=== PATIENT | female | born 1950 | race Caucasian/White ===

== ENCOUNTER 2017-07-04 09:46 | Day surgery (SDC) | payer MEDICARE, MEDICAID, SELFPAY ==
[2017-07-04 10:01] VITALS: BP 115/67; PULSE 71; RESP 18; O2SAT 95
[2017-07-04 10:19] VITALS: BP 103/56; PULSE 64; RESP 18; TEMP 36.6; O2SAT 100
[2017-07-04 10:29] VITALS: BP 106/66; PULSE 73; RESP 18
[2017-07-04 10:30] LABS: POC Glucose,Bedside 131 mg/dL
[2017-07-04 10:31] VITALS: BP 105/68; PULSE 72; RESP 18
--- NOTE | 2017-07-04 10:37 | P.PCN_ITS ---
- Procedure Date: 07/04/17 Time: 10:33 Anesthesiologist:: Petr Barahona CRNA Complications:: None Pre-procedure Diagnosis:: Right sacroiliitis. Right trochanteric bursitis Post-procedure Diagnosis:: Same Indications for Procedure:: 66-year-old obese white male that we have been treating for quite some time for chronic low back pain as well as right hip pain. She presents to our procedure clinic today for right SI joint injection as well as right trochanteric bursa injection Procedure Details:: Procedure: Right sacroliliac joint injection under fluoroscopy Informed consent was obtained and the risk and benefits of the procedure were explained to the patient.~ The patient was taken to the procedure room and noninvasive monitors were placed including noninvasive blood pressure cuff and pulse oximeter.~ The patient was placed prone on the procedure table.~ The~ right hip was cleansed using Betadine as a cleansing solution.~ C-arm fluorosocpy was used to view the right SI joint.~ The skin and subcutaneous tissues were anesthetized using Lidocaine 1.5% and a 25-gauge needle.~ After this, a 22-gauge spinal needle was inserted under fluoroscopic guidance into the inferior aspect of the right SI joint.~ Omnipaque dye was injected and a good spread was seen throughout the joint.~ After this, approximately 5 mL of bupivacaine 0.25% and Depo-Medrol 40 mg was incrementally injected into the sacroiliac joint.~ The patient tolerated the procedure well with no complications.~ The patient was observed in the Pain Clinic, then discharged home neurologically intact.~ Procedure: Right trochanteric bursa injection under fluoroscopy We then moved to the right trochanteric bursa.~ C-arm fluoroscopy was used to view the left greater trochanter.~ The skin and subcutaneous tissues overlying the right greater trochanter were anesthetized using lidocaine, 1.5% and a 25- gauge needle.~ After this, a 22-gauge spinal needle was inserted and advanced until it contacted the right greater trochanter.~ Dye was injected and good spread was seen throughout the right trochanteric bursa. After this, approximately 5 mL of bupivacaine, 0.25% and Depo-Medrol, 40 mg was incrementally injected into the right right trochanteric bursa.~ The patient tolerated the procedure well with no complications. Plan and Disposition:: Patient was reevaluated 10 minutes post procedure. She reports 90% improvement in terms of her right hip pain.
== END 2017-07-04 10:40 | disposition home or self-care (01) ==
LOC: SC.PAINP 09:49
PROVIDERS: Family Provider Family Medicine; PCP Family Medicine; Visit Provider Nurse Anesthetist, Certified Registered
DX: M46.1 Sacroiliitis, not elsewhere classified (principal); M70.61 Trochanteric bursitis, right hip; E11.9 Type 2 diabetes mellitus without complications
CPT/HCPCS: 20610; 27096; 82962; G0260; J1030

== ENCOUNTER → 2017-08-21 09:37 | Outpatient (POV) | payer MEDICARE, MEDICAID, SELFPAY ==
[2017-08-21 09:44] VITALS: BP 109/57; PULSE 72; RESP 21; O2SAT 96; BMI 41.1
--- NOTE | 2017-08-21 10:22 | HMH.PAINSOAP ---
[facility] Pain Management SOAP Note Subjective:: Patient is a pleasant 66-year-old white female who presents today for follow-up after her right SI and right trochanteric bursa injection. Patient states she received 80% relief for at least 6 weeks. Patient would like to discuss her low back pain today. Patient has had successful medial branch blocks L3-L4 L4-L5. Patient received 80% relief for 6-8 weeks post these injections. Patient would like to discuss RFA of these levels. Patient states her back pain is axial in nature she rates her pain a 6 out of 10 today. Patient states all activity makes it worse while resting makes it better. Patient has tried and failed medications, physical therapy, anti-inflammatories. ROS General: no recent weight change, no fever, no sleep disturbances Respiratory: Chronic cough, COPD Cardiovascular/Peripheral Vascular: No chest pain, No palpitations, no edema, no shortness of breath. Gastrointestinal: no incontinence, normal bowel movements reported Genitourinary: no incontinence Musculoskeletal: Lumbar back pain Psychiatric: normal mood/ affect, Neurological: Intermittent weakness in bilateral lower extremities Objective:: Physical Exam General: Alert and oriented x3, no acute distress, pleasant and cooperative, [on room air] Lungs: Resps E/U, Symmetrical chest expansion, Eyes: PERRL Musculoskeletal: Flexion and extension of lumbar spine somewhat guarded secondary to pain, deep tendon reflexes normal, strength in upper and lower extremities [5/5], [abnormal gait noted] Neurological: speech clear, pbx repairer equal, no gross sensory deficits Assessment:: facet arthropathy of the lumbar spine, lumbar spondylosis, right sacroiliitis, right trochanteric bursitis Plan:: We will plan radiofrequency ablation of L3-L4 L4-L5 bilaterally. We will start with the right side. Patient did well with her medial branch blocks and I believe that this can give her some long-term pain relief as well as increase her functionality. Patient has tried and failed anti-inflammatories, medications, physical therapy. This note was dictated using voice-recognition software may contain errors or omissions
--- NOTE | 2017-08-21 10:26 | P.CONS_ITS ---
[facility] Pain Management SOAP Note Subjective:: Patient is a pleasant 66-year-old white female who presents today for follow-up after her right SI and right trochanteric bursa injection. Patient states she received 80% relief for at least 6 weeks. Patient would like to discuss her low back pain today. Patient has had successful medial branch blocks L3-L4 L4- L5. Patient received 80% relief for 6-8 weeks post these injections. Patient would like to discuss RFA of these levels. Patient states her back pain is axial in nature she rates her pain a 6 out of 10 today. Patient states all activity makes it worse while resting makes it better. Patient has tried and failed medications, physical therapy, anti-inflammatories. ROS General: no recent weight change, no fever, no sleep disturbances Respiratory: Chronic cough, COPD Cardiovascular/Peripheral Vascular: No chest pain, No palpitations, no edema, no shortness of breath. Gastrointestinal: no incontinence, normal bowel movements reported Genitourinary: no incontinence Musculoskeletal: Lumbar back pain Psychiatric: normal mood/ affect, Neurological: Intermittent weakness in bilateral lower extremities Objective:: Physical Exam General: Alert and oriented x3, no acute distress, pleasant and cooperative, [ on room air] Lungs: Resps E/U, Symmetrical chest expansion, Eyes: PERRL Musculoskeletal: Flexion and extension of lumbar spine somewhat guarded secondary to pain, deep tendon reflexes normal, strength in upper and lower extremities [5/5], [abnormal gait noted] Neurological: speech clear, manager heart equal, no gross sensory deficits Assessment:: facet arthropathy of the lumbar spine, lumbar spondylosis, right sacroiliitis, right trochanteric bursitis Plan:: We will plan radiofrequency ablation of L3-L4 L4-L5 bilaterally. We will start with the right side. Patient did well with her medial branch blocks and I believe that this can give her some long-term pain relief as well as increase her functionality. Patient has tried and failed anti-inflammatories, medications, physical therapy. This note was dictated using voice-recognition software may contain errors or omissions
== END ==
PROVIDERS: Family Provider Family Medicine; PCP Family Medicine; Visit Provider Clinical Nurse Specialist Family Health
DX: M47.816 Spondylosis without myelopathy or radiculopathy, lumbar region (principal); M70.61 Trochanteric bursitis, right hip
CPT/HCPCS: 99212

== ENCOUNTER → 2017-08-25 10:15 | Outpatient (CLI) | payer MEDICARE, MEDICAID, SELFPAY ==
[2017-08-25 11:42] LABS: Albumin Level 3.8 gm/dL (3.4-5.0); Blood Urea Nitrogen 24 mg/dL (7-18); Calcium 9.8 mg/dL (8.5-10.1); Carbon Dioxide 25 mmol/L (21.0-32.0); Chloride 99 mmol/L (98-107); Creatinine,Serum 1.53 mg/dL (0.55-1.02); Estimated Glomerular Filt Rate 34 ml/min (>60); GFR (African American) 41 ML/MIN (>60); Glucose 186 mg/dL (74-106); Phosphorous 4.3 mg/dL (2.4-4.9); Sodium 138 mmol/L (136-145)
[2017-08-26 18:31] LABS: Parathyroid Hormone Intact 47 pg/mL (15-65); Vitamin D 25 Hydroxy 35.1 ng/mL (30.0-100.0)
[2017-08-26 21:39] LABS: Calcium, Ionized 5.6 mg/dL (4.5-5.6)
== END ==
PROVIDERS: Visit Provider Internal Medicine Nephrology
DX: N18.3 Chronic kidney disease, stage 3 (moderate) (principal)
CPT/HCPCS: 36415; 80069; 82330; 82652; 83970

== ENCOUNTER → 2017-08-28 13:46 | Outpatient (POV) | payer MEDICARE, MEDICAID, SELFPAY | PROVIDERS: Family Provider Family Medicine; PCP Family Medicine; Visit Provider Internal Medicine Nephrology | DX: Z00.00 Encounter for general adult medical examination without abnormal findings (principal) ==

== ENCOUNTER 2017-09-01 11:07 | Day surgery (SDC) | payer MEDICARE, MEDICAID, SELFPAY ==
[2017-09-01 11:53] VITALS: BP 111/59; PULSE 69; RESP 18; O2SAT 95; BMI 40.6
--- NOTE | 2017-09-01 12:19 | HMH.PMPROC ---
- Procedure Date: 09/01/17 Time: 12:19 Anesthesiologist:: Brad Zapata MD Complications:: None Pre-procedure Diagnosis:: Degenerative disc disease of the lumbar spine with lumbar spondylosis and facet arthropathy Post-procedure Diagnosis:: Same Indications for Procedure:: This patient is a pleasant 66-year-old white female who we are treating for low back pain. She previously had a right SI joint injection and right trochanteric bursa injection these did help significantly. Now most of her pain is in the low back. She has benefited from medial branch blocks to L3-L4, L4-L5 and L5-S1 bilaterally. We will do radiofrequency ablation to L3-L4, L4-L5 and L5-S1 today. We will start with the right side followed by the left side in 2 weeks. Procedure Details:: Lumbar RFA informed consent was obtained and the risk and benefits of the procedure was explained to the patient. Patient was placed prone on the procedure table. The patient was prepped and draped in sterile fashion. C-arm fluoroscopy was used to view the lumbar spine. The skin and subcutaneous tissues were anesthetized using lidocaine. I placed 20-gauge RF needles into the facet joints of L3-L4, L4-L5 and L5-S1 levels on the right side. We underwent sensory stimulation. There is good sensory stimulation at 0.8 V. We underwent motor stimulation. There is no motor stimulation at 2 V. We then anesthetized these levels with lidocaine and Depo-Medrol. I used a total of 40 mg Depo-Medrol for all 3 levels. I then burned both levels L3-L4, L4-5 L5-S1 facet joint/medial branches on the right side for 60 seconds at 80?C. We underwent 4 campos again each 1 for 60 seconds at 80?C. Patient tolerated the procedure well with no complication. Plan and Disposition:: We will follow-up with this patient in 2 weeks. We will reevaluate her symptoms at that time. And plan on RFA to the facet joint/medial branches of L3-L4, L4-L5 and L5-S1 on the left side.
[2017-09-01 12:25] VITALS: BP 158/78; PULSE 78; RESP 18
[2017-09-01 12:31] VITALS: BP 141/78; PULSE 81; RESP 20
--- NOTE | 2017-09-01 12:32 | P.PCN_ITS ---
- Procedure Date: 09/01/17 Time: 12:19 Anesthesiologist:: Brad Zapata MD Complications:: None Pre-procedure Diagnosis:: Degenerative disc disease of the lumbar spine with lumbar spondylosis and facet arthropathy Post-procedure Diagnosis:: Same Indications for Procedure:: This patient is a pleasant 66-year-old white female who we are treating for low back pain. She previously had a right SI joint injection and right trochanteric bursa injection these did help significantly. Now most of her pain is in the low back. She has benefited from medial branch blocks to L3-L4, L4-L5 and L5-S1 bilaterally. We will do radiofrequency ablation to L3-L4, L4- L5 and L5-S1 today. We will start with the right side followed by the left side in 2 weeks. Procedure Details:: Lumbar RFA informed consent was obtained and the risk and benefits of the procedure was explained to the patient. Patient was placed prone on the procedure table. The patient was prepped and draped in sterile fashion. C-arm fluoroscopy was used to view the lumbar spine. The skin and subcutaneous tissues were anesthetized using lidocaine. I placed 20-gauge RF needles into the facet joints of L3-L4, L4-L5 and L5-S1 levels on the right side. We underwent sensory stimulation. There is good sensory stimulation at 0.8 V. We underwent motor stimulation. There is no motor stimulation at 2 V. We then anesthetized these levels with lidocaine and Depo-Medrol. I used a total of 40 mg Depo- Medrol for all 3 levels. I then burned both levels L3-L4, L4-5 L5-S1 facet joint/medial branches on the right side for 60 seconds at 80?C. We underwent 4 campos again each 1 for 60 seconds at 80?C. Patient tolerated the procedure well with no complication. Plan and Disposition:: We will follow-up with this patient in 2 weeks. We will reevaluate her symptoms at that time. And plan on RFA to the facet joint/medial branches of L3 -L4, L4-L5 and L5-S1 on the left side.
[2017-09-01 12:42] VITALS: BP 114/65; PULSE 68; RESP 18; TEMP 36.4; O2SAT 99
[2017-09-01 14:28] LABS: POC Glucose,Bedside 166 mg/dL (70-110)
== END 2017-09-01 12:42 | disposition home or self-care (01) ==
LOC: SC.PAINP 11:09
PROVIDERS: Family Provider Family Medicine; PCP Family Medicine; Visit Provider Anesthesiology
DX: M51.36 Other intervertebral disc degeneration, lumbar region (principal); M47.896 Other spondylosis, lumbar region; M54.06 Panniculitis affecting regions of neck and back, lumbar region; Z79.899 Other long term (current) drug therapy
CPT/HCPCS: 64635; 64636; 82962; J1030

== ENCOUNTER 2017-09-15 14:34 | Day surgery (SDC) | payer MEDICARE, MEDICAID, SELFPAY ==
[2017-09-15 14:58] VITALS: BP 105/69; PULSE 78; RESP 18; TEMP 36.6; O2SAT 94; BMI 40.6
[2017-09-15 15:35] VITALS: BP 125/73; PULSE 77; RESP 18
--- NOTE | 2017-09-15 15:41 | HMH.PMPROC ---
- Procedure Date: 09/15/17 Time: 15:50 Anesthesiologist:: Brad Zapata MD Complications:: None Pre-procedure Diagnosis:: Degenerative disc disease of the lumbar spine with lumbar spondylosis and facet arthropathy Post-procedure Diagnosis:: Same Indications for Procedure:: Patient is a pleasant 66-year-old white female who we are treating for low back pain secondary to degenerative disc disease of the lumbar spine with lumbar spondylosis and facet arthropathy. She is previously had a radiofrequency ablation of L3-L4 L4-L5 L5-S1 on the right side and she presents today for her left RFA of L3-L4 L4-L5 L5-S1. Procedure Details:: Informed consent was obtained and the risks and benefits of the procedure were explained to the patient. Patient was placed prone on the procedure table. The patient was prepped and draped in sterile fashion. C-arm fluoroscopy was used to view the lumbar spine. The skin was then subcutaneous tissue was anesthetized using lidocaine. I placed a 20-gauge RF needle in the facet of L3-L4 L4-L5 and L5-S1 on the left side. The patient then underwent sensory stimulation. There is good sensory stimulation at 0.8 V. We underwent motor stimulation. There is no motor stimulation at 2 V. We then anesthetized the levels with lidocaine and Depo-Medrol. I used total of 40 mg of Depo-Medrol for all 3 levels. I then burned all levels L3-L4 L4-L5 L5-S1 facet joint/medial branches on the left side for 60 seconds at 80?C we underwent 4 campos again each 1 for 60 seconds at 80?C patient tolerated the procedure well with no complications Plan and Disposition:: We will see the patient back in our clinic and says her symptoms at that time. Patient has been instructed to call us if there are any issues.
--- NOTE | 2017-09-15 15:44 | P.PCN_ITS ---
- Procedure Date: 09/15/17 Time: 15:50 Anesthesiologist:: Brad Zapata MD Complications:: None Pre-procedure Diagnosis:: Degenerative disc disease of the lumbar spine with lumbar spondylosis and facet arthropathy Post-procedure Diagnosis:: Same Indications for Procedure:: Patient is a pleasant 66-year-old white female who we are treating for low back pain secondary to degenerative disc disease of the lumbar spine with lumbar spondylosis and facet arthropathy. She is previously had a radiofrequency ablation of L3-L4 L4-L5 L5-S1 on the right side and she presents today for her left RFA of L3-L4 L4-L5 L5-S1. Procedure Details:: Informed consent was obtained and the risks and benefits of the procedure were explained to the patient. Patient was placed prone on the procedure table. The patient was prepped and draped in sterile fashion. C-arm fluoroscopy was used to view the lumbar spine. The skin was then subcutaneous tissue was anesthetized using lidocaine. I placed a 20-gauge RF needle in the facet of L3- L4 L4-L5 and L5-S1 on the left side. The patient then underwent sensory stimulation. There is good sensory stimulation at 0.8 V. We underwent motor stimulation. There is no motor stimulation at 2 V. We then anesthetized the levels with lidocaine and Depo-Medrol. I used total of 40 mg of Depo-Medrol for all 3 levels. I then burned all levels L3-L4 L4-L5 L5-S1 facet joint/ medial branches on the left side for 60 seconds at 80?C we underwent 4 campos again each 1 for 60 seconds at 80?C patient tolerated the procedure well with no complications Plan and Disposition:: We will see the patient back in our clinic and says her symptoms at that time. Patient has been instructed to call us if there are any issues.
[2017-09-15 15:49] VITALS: BP 119/74; PULSE 76; RESP 20
[2017-09-15 15:56] VITALS: BP 94/58; PULSE 71; RESP 16; O2SAT 95
[2017-09-19 10:03] LABS: POC Glucose,Bedside 221 mg/dL (70-110)
== END 2017-09-15 16:00 | disposition home or self-care (01) ==
LOC: SC.PAINP 14:35
PROVIDERS: Family Provider Family Medicine; PCP Family Medicine; Visit Provider Anesthesiology
DX: M51.36 Other intervertebral disc degeneration, lumbar region (principal); M47.896 Other spondylosis, lumbar region; M12.88 Other specific arthropathies, not elsewhere classified, other specified site
CPT/HCPCS: 64635; 64636; 82962; J1030

== ENCOUNTER → 2017-10-02 11:00 | Outpatient (POV) | payer MEDICARE, MEDICAID, SELFPAY ==
[2017-10-02 11:24] VITALS: BP 118/64; PULSE 76; RESP 18; TEMP 36.4; O2SAT 95; BMI 41.0
--- NOTE | 2017-10-02 11:56 | HMH.PAINSOAP ---
[facility] Pain Management SOAP Note Subjective:: Patient is a pleasant 5-year-old white female who we are treating for low back pain secondary to degenerative disc disease of the lumbar spine and lumbar spondylosis. Patient currently status post bilateral radiofrequency ablation of L3-L4 L4-L5 L5-S1. Patient is doing well stating that she has 0 pain over area. Patient does have a history of right sacroiliitis and states that her right SI and right piriformis is causing her quite a bit of discomfort. Patient rates her pain there to be at 8 out of 10. Patient is interested in injective therapy in order to help relieve some of his pain. ROS General: no recent weight change, no fever, no sleep disturbances Respiratory: no cough, no shortness of air, no recurring pulmonary infections Cardiovascular/Peripheral Vascular: No chest pain, No palpitations, no edema, no shortness of breath. Gastrointestinal: no incontinence, normal bowel movements reported Genitourinary: no incontinence Musculoskeletal: Back pain, right SI joint pain, right piriformis pain Psychiatric: normal mood/ affect, Neurological: [denies weakness in extremities], [denies balance issues] Objective:: Physical Exam General: Alert and oriented x3, no acute distress, pleasant and cooperative, [on room air] Lungs: Resps E/U, Symmetrical chest expansion, Eyes: PERRL Musculoskeletal: Flexion and extension of lumbar spine somewhat guarded secondary to pain, deep tendon reflexes normal, strength in upper and lower extremities [5/5], [abnormal gait noted], extreme point tenderness over right SI joint and right piriformis. Positive Frank's test on the right side Neurological: speech clear, all round logger equal, no gross sensory deficits Assessment:: Degenerative disc disease of the lumbar spine, lumbar spondylosis, sacroiliitis, piriformis syndrome Plan:: Patient is being medically managed by her PCP with OxyContin 40 mg 1 3 times daily and oxycodone 5 mg 1 p.o. twice daily and gabapentin 600 mg 1 p.o. 4 times daily and diazepam 10 mg 1 p.o. 3 times daily. Patient is doing much better after her recent RFA. We will however order her right SI joint injection and a right piriformis injection due to her new symptomology. She is not on any coagulation therapy patient has tried physical therapy, anti-inflammatories, medications in the past without relief. This note was dictated using voice recognition software and may contain errors or omissions
--- NOTE | 2017-10-02 11:59 | P.CONS_ITS ---
[facility] Pain Management SOAP Note Subjective:: Patient is a pleasant 5-year-old white female who we are treating for low back pain secondary to degenerative disc disease of the lumbar spine and lumbar spondylosis. Patient currently status post bilateral radiofrequency ablation of L3-L4 L4-L5 L5-S1. Patient is doing well stating that she has 0 pain over area. Patient does have a history of right sacroiliitis and states that her right SI and right piriformis is causing her quite a bit of discomfort. Patient rates her pain there to be at 8 out of 10. Patient is interested in injective therapy in order to help relieve some of his pain. ROS General: no recent weight change, no fever, no sleep disturbances Respiratory: no cough, no shortness of air, no recurring pulmonary infections Cardiovascular/Peripheral Vascular: No chest pain, No palpitations, no edema, no shortness of breath. Gastrointestinal: no incontinence, normal bowel movements reported Genitourinary: no incontinence Musculoskeletal: Back pain, right SI joint pain, right piriformis pain Psychiatric: normal mood/ affect, Neurological: [denies weakness in extremities], [denies balance issues] Objective:: Physical Exam General: Alert and oriented x3, no acute distress, pleasant and cooperative, [ on room air] Lungs: Resps E/U, Symmetrical chest expansion, Eyes: PERRL Musculoskeletal: Flexion and extension of lumbar spine somewhat guarded secondary to pain, deep tendon reflexes normal, strength in upper and lower extremities [5/5], [abnormal gait noted], extreme point tenderness over right SI joint and right piriformis. Positive Frank's test on the right side Neurological: speech clear, student worker equal, no gross sensory deficits Assessment:: Degenerative disc disease of the lumbar spine, lumbar spondylosis, sacroiliitis , piriformis syndrome Plan:: Patient is being medically managed by her PCP with OxyContin 40 mg 1 3 times daily and oxycodone 5 mg 1 p.o. twice daily and gabapentin 600 mg 1 p.o. 4 times daily and diazepam 10 mg 1 p.o. 3 times daily. Patient is doing much better after her recent RFA. We will however order her right SI joint injection and a right piriformis injection due to her new symptomology. She is not on any coagulation therapy patient has tried physical therapy, anti- inflammatories, medications in the past without relief. This note was dictated using voice recognition software and may contain errors or omissions
== END ==
PROVIDERS: Family Provider Family Medicine; PCP Family Medicine; Visit Provider Clinical Nurse Specialist Family Health
DX: M47.816 Spondylosis without myelopathy or radiculopathy, lumbar region (principal)
CPT/HCPCS: 99212

== ENCOUNTER → 2017-10-11 07:45 | Outpatient (CLI) | payer MEDICARE, MEDICAID, SELFPAY ==
--- NOTE | 2017-10-11 07:47 | CT_ITS ---
CT lung screening EXAM: CT LUNG LOW DOSE WO CONTRAST COMPARISON: None HISTORY: 66-year-old female with 60 pack-year smoking history, asymptomatic ITS.REASON: CURRENT TOBACCO USE ORDERING PHYSICIAN: Konstantin Walters MD PATIENT AGE: 66 years TECHNIQUE: The exam was performed on a GE Light Speed [address] scanner using 2.90 mGy CTDI. A low dose helical CT CHEST was performed on a multi-detector scanner. All CT scans at the facility use one or more dose reduction, viz: automated exposure control; ma/kV adjustment per patient size (including targeted exams where dose is matched to indication; i.e. head); or iterative reconstruction technique. The LDCT was performed in a facility that meets the criteria for the screening program. Data regarding this exam was submitted to ACR which is an approved registry. The order for this exam indicates that it came as a result of a lung cancer screening counseling shard decision-making visit that included all the elements required of such a visit including smoking cessation. The radiologist interpreting this exam meets the CMS criteria for the LDCT lung cancer screening program. The exam is reported using the Lung-RADS classification scale and reported to the ACR registry. NOTE: This study was performed for the specific purposes of lung cancer screening and is not an alternative to diagnostic chest CT. RADIATION DOSE: CTDI vol(CT dose Index-volume) = 2.90mG DLP (Dose Length Product) = 105.91 mGcm FINDINGS: Centrilobular emphysema. 9 x 8 mm irregular parenchymal opacity is present in the right upper lobe inferiorly. Calcified granuloma left lower lobe. Scarring in the lingula. Moderate coronary artery calcification present. IMPRESSION: 1. Lung RADS Category: 4, suspicious 2. Other findings: Centrilobular emphysema, old granulomatous disease. Coronary artery atherosclerotic calcification RECOMMENDATIONS: [address] chest without and with contrast
== END ==
PROVIDERS: Family Provider Family Medicine; PCP Family Medicine; Visit Provider Family Medicine
DX: Z87.891 Personal history of nicotine dependence (principal); Z12.2 Encounter for screening for malignant neoplasm of respiratory organs

== ENCOUNTER → 2017-11-03 07:33 | Outpatient (CLI) | payer MEDICARE, MEDICAID, SELFPAY ==
--- NOTE | 2017-11-03 07:36 | MR_ITS ---
MR head/brain wo con HISTORY: Tremors for 2 years ITS.REASON: tremor ORDERING PHYSICIAN: Kristina Paris MD PATIENT AGE: 66 years TECHNIQUE: Standard multiplanar multiecho sequences are performed without contrast. FINDINGS: No midline shift, mass effect, intracranial hemorrhage, hydrocephalus, or acute infarction. The cerebellopontine angles, cerebellum, and brainstem are unremarkable. There are few scattered periventricular and subcortical T2 white matter hyperintensities nonspecific. The pituitary, optic chiasm, and craniocervical junction and corpus callosum have an unremarkable appearance. No evidence of acute or chronic lacunar infarctions. The basal ganglia and midbrain have an unremarkable appearance. There is a 13 x 7 mm area of abnormal signal intensity within the right posterior ethmoid/anterior sphenoid region hyperintense on T1 with slight decreased T2 signal centrally. Etiology of this is uncertain. CT may better characterize for possible bony lesion. No mastoid effusion or sinus air-fluid level. IMPRESSION: 1. No acute intracranial finding. 2. Unusual area of signal intensity in the right posterior ethmoid/anterior sphenoid region as described above. This is just medial to the posterior aspect of the right optic nerve and medial rectus muscle of the right. Consider CT of the orbits/sinuses for further evaluation due to the atypical signal characteristics and to evaluate for possible bony lesion.
== END ==
PROVIDERS: Family Provider Family Medicine; PCP Family Medicine; Visit Provider Specialist
DX: G20 Parkinson's disease (principal); R25.1 Tremor, unspecified
CPT/HCPCS: 70551

== ENCOUNTER → 2017-11-13 13:53 | Outpatient (POV) | payer MEDICARE, MEDICAID, SELFPAY ==
[2017-11-13 14:10] VITALS: BP 135/72; PULSE 83; RESP 18; O2SAT 99; BMI 45.5
--- NOTE | 2017-11-13 14:46 | HMH.PAINSOAP ---
[facility] Pain Management SOAP Note Subjective:: She is a pleasant 66 white female who presents today for follow-up. Patient is status post a right SI and right performance injection. She states that her hip is doing much better however she is having a return in her lower lumbar pain. Patient has had an RFA of her lumbar spine at L3-L4 L4-L5 L5-S1 bilaterally. She states that this did help significantly. However it has returned. Patient would like a repeat medial branch block of L3-L4 L4-L5 L5-S1 bilaterally. I believe that this would be beneficial given her symptomology. We discussed potential longer-term options such as neuromodulation where she is not interested at that at this time as long as her pain symptoms are being managed with injective therapy. Patient's currently on oxycodone 5 mg 1 p.o. twice daily and OxyContin 40 mg 1 p.o. twice daily along with gabapentin 600 mg 1 p.o. 4 times daily and diazepam 10 mg 1 p.o. 3 times daily from her primary care physician. ROS General: no recent weight change, no fever, no sleep disturbances Respiratory: no cough, no shortness of air, no recurring pulmonary infections Cardiovascular/Peripheral Vascular: No chest pain, No palpitations, no edema, no shortness of breath. Gastrointestinal: no incontinence, normal bowel movements reported Genitourinary: no incontinence Musculoskeletal: Back pain Psychiatric: normal mood/ affect Neurological: [denies weakness in extremities], [denies balance issues] Objective:: Physical Exam General: Alert and oriented x3, no acute distress, pleasant and cooperative, [on room air] Lungs: Resps E/U, Symmetrical chest expansion, Eyes: PERRL Musculoskeletal: Flexion and extension of lumbar spine somewhat guarded secondary to pain, deep tendon reflexes normal, strength in upper and lower extremities [5/5], abnormal gait noted, positive facet loading lumbar spine bilaterally Neurological: speech clear, agricultural engineering technologist equal, no gross sensory deficits Assessment:: lumbar spondylosis, facet arthropathy, sacroiliitis Plan:: We will schedule bilateral medial branch blocks at L3-L4 L4-L5 L5-S1 bilaterally. Patient is uninterested in neuromodulation at this time however we may have to discuss this in the future. Patient would like to discuss her cervical pain after her injections. I will follow-up with her after her injections. Patient's tried and failed medications, anti-inflammatories, physical therapy. Patient is continuing to try to do home stretching. This note was dictated using voice recognition software and may contain errors or omissions
--- NOTE | 2017-11-13 14:49 | P.CONS_ITS ---
[facility] Pain Management SOAP Note Subjective:: She is a pleasant 66 white female who presents today for follow-up. Patient is status post a right SI and right performance injection. She states that her hip is doing much better however she is having a return in her lower lumbar pain. Patient has had an RFA of her lumbar spine at L3-L4 L4-L5 L5-S1 bilaterally. She states that this did help significantly. However it has returned. Patient would like a repeat medial branch block of L3-L4 L4-L5 L5-S1 bilaterally. I believe that this would be beneficial given her symptomology. We discussed potential longer-term options such as neuromodulation where she is not interested at that at this time as long as her pain symptoms are being managed with injective therapy. Patient's currently on oxycodone 5 mg 1 p.o. twice daily and OxyContin 40 mg 1 p.o. twice daily along with gabapentin 600 mg 1 p.o. 4 times daily and diazepam 10 mg 1 p.o. 3 times daily from her primary care physician. ROS General: no recent weight change, no fever, no sleep disturbances Respiratory: no cough, no shortness of air, no recurring pulmonary infections Cardiovascular/Peripheral Vascular: No chest pain, No palpitations, no edema, no shortness of breath. Gastrointestinal: no incontinence, normal bowel movements reported Genitourinary: no incontinence Musculoskeletal: Back pain Psychiatric: normal mood/ affect Neurological: [denies weakness in extremities], [denies balance issues] Objective:: Physical Exam General: Alert and oriented x3, no acute distress, pleasant and cooperative, [ on room air] Lungs: Resps E/U, Symmetrical chest expansion, Eyes: PERRL Musculoskeletal: Flexion and extension of lumbar spine somewhat guarded secondary to pain, deep tendon reflexes normal, strength in upper and lower extremities [5/5], abnormal gait noted, positive facet loading lumbar spine bilaterally Neurological: speech clear, 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 Patient is uninterested in neuromodulation at this time however we may have to discuss this in the future. Patient would like to discuss her cervical pain after her injections. I will follow-up with her after her injections. Patient's tried and failed medications, anti-inflammatories, physical therapy. Patient is continuing to try to do home stretching. This note was dictated using voice recognition software and may contain errors or omissions
== END ==
PROVIDERS: Family Provider Family Medicine; PCP Family Medicine; Visit Provider Clinical Nurse Specialist Family Health
DX: M47.816 Spondylosis without myelopathy or radiculopathy, lumbar region (principal)
CPT/HCPCS: 99212

== ENCOUNTER → 2017-12-11 09:49 | Outpatient (POV) | payer MEDICARE, MEDICAID, SELFPAY ==
[2017-12-11 10:04] VITALS: BP 111/44; PULSE 78; RESP 18; O2SAT 98; BMI 45.5
--- NOTE | 2017-12-11 12:21 | HMH.PAINSOAP ---
[facility] Pain Management SOAP Note Subjective:: Patient is a pleasant 67-year-old white female who we are treating for low back pain secondary to lumbar spondylosis and facet arthropathy. Patient states that her most recent round of medial branch blocks helped significantly. Patient states she does have neck and back pain at all times. Patient does not have any recent imaging of her cervical spine however she is having worsening pain. Patient rates her pain a 7 out of 10 today. Patient does not want to do physical therapy at this time due to cost. Patient and I discussed nutrition along with weight loss. Patient states she has lost some weight. Patient is currently on OxyContin and oxycodone from her primary care physician. Patient states that this medication does not help her pain much. ROS General: no recent weight change, no fever, no sleep disturbances Respiratory: no cough, no shortness of air, no recurring pulmonary infections Cardiovascular/Peripheral Vascular: No chest pain, No palpitations, no edema, no shortness of breath. Gastrointestinal: no incontinence, normal bowel movements reported Genitourinary: no incontinence Musculoskeletal: Neck pain, back pain Psychiatric: normal mood/ affect Neurological: [denies weakness in extremities], [denies balance issues] Objective:: Physical Exam General: Alert and oriented x3, no acute distress, pleasant and cooperative, [on room air] Lungs: Resps E/U, Symmetrical chest expansion, Eyes: PERRL Musculoskeletal: Flexion and extension of lumbar and cervical spine somewhat guarded secondary to pain, deep tendon reflexes normal, strength in upper and lower extremities [5/5], [abnormal gait noted] Neurological: speech clear, chief of party equal, no gross sensory deficits Assessment:: Disease of the cervical and lumbar spine with radiculopathy, facet arthropathy, lumbar spondylosis Plan:: We will schedule cervical MRI for the patient to determine pathology. Patient and I had a discussion about neuro stimulation in the past. I believe we may need to return to this. I believe patient may benefit from potential intrathecal therapy. Patient would have to be weaned off her current medications. I will follow-up with this patient after her cervical MRI and we will determine a plan of care. This note was dictated using voice recognition software and may contain errors or omissions
--- NOTE | 2017-12-11 12:24 | P.CONS_ITS ---
[facility] Pain Management SOAP Note Subjective:: Patient is a pleasant 67-year-old white female who we are treating for low back pain secondary to lumbar spondylosis and facet arthropathy. Patient states that her most recent round of medial branch blocks helped significantly. Patient states she does have neck and back pain at all times. Patient does not have any recent imaging of her cervical spine however she is having worsening pain. Patient rates her pain a 7 out of 10 today. Patient does not want to do physical therapy at this time due to cost. Patient and I discussed nutrition along with weight loss. Patient states she has lost some weight. Patient is currently on OxyContin and oxycodone from her primary care physician. Patient states that this medication does not help her pain much. ROS General: no recent weight change, no fever, no sleep disturbances Respiratory: no cough, no shortness of air, no recurring pulmonary infections Cardiovascular/Peripheral Vascular: No chest pain, No palpitations, no edema, no shortness of breath. Gastrointestinal: no incontinence, normal bowel movements reported Genitourinary: no incontinence Musculoskeletal: Neck pain, back pain Psychiatric: normal mood/ affect Neurological: [denies weakness in extremities], [denies balance issues] Objective:: Physical Exam General: Alert and oriented x3, no acute distress, pleasant and cooperative, [ on room air] Lungs: Resps E/U, Symmetrical chest expansion, Eyes: PERRL Musculoskeletal: Flexion and extension of lumbar and cervical spine somewhat guarded secondary to pain, deep tendon reflexes normal, strength in upper and lower extremities [5/5], [abnormal gait noted] Neurological: speech clear, pinion staker equal, no gross sensory deficits Assessment:: Disease of the cervical and lumbar spine with radiculopathy, facet arthropathy, lumbar spondylosis Plan:: We will schedule cervical MRI for the patient to determine pathology. Patient and I had a discussion about neuro stimulation in the past. I believe we may need to return to this. I believe patient may benefit from potential intrathecal therapy. Patient would have to be weaned off her current medications. I will follow-up with this patient after her cervical MRI and we will determine a plan of care. This note was dictated using voice recognition software and may contain errors or omissions
== END ==
PROVIDERS: Family Provider Family Medicine; PCP Family Medicine; Visit Provider Clinical Nurse Specialist Family Health
DX: M54.16 Radiculopathy, lumbar region (principal); M54.12 Radiculopathy, cervical region
CPT/HCPCS: 99212

== ENCOUNTER → 2018-01-03 08:30 | Outpatient (CLI) | payer MEDICARE, MEDICAID, SELFPAY ==
[2018-01-03 08:50] LABS: Blood Urea Nitrogen 18 mg/dL (7-18); Creatinine,Serum 1.31 mg/dL (0.55-1.02); Estimated Glomerular Filt Rate 40 ml/min (>60); GFR (African American) 49 ML/MIN (>60)
--- NOTE | 2018-01-03 09:40 | CT_ITS ---
CT chest wo/w con HISTORY: Tobacco abuse, abnormal screening lung scan, smoker ITS.REASON: F/U TO LOW DOSE LUNG SCREENING ORDERING PHYSICIAN: Konstantin Walters MD PATIENT AGE: 67 years COMPARISON: None Technique: Axial images obtained without and with contrast. Sagittal and coronal reformatted images are also generated and reviewed. All CT scans at the facility use one or more dose reduction, viz: automated exposure control; ma/kV adjustment per patient size (including targeted exams where dose is matched to indication; i.e. head); or iterative reconstruction technique. FINDINGS: No mediastinal or hilar mass or adenopathy. There are few small mediastinal lymph nodes which are stable. No evidence of aortic aneurysm, dissection, or central pulmonary embolus. The left atrial appendage is slightly prominent. There is extensive coronary artery calcification. Normal heart size. No evidence of pericardial effusion. Previously described parenchymal opacity in the inferior aspect of the right upper lobe is again noted measuring approximately 8 x 8 mm. This did appear slightly more prominent on the previous exam possibly related to some adjacent atelectasis or infiltrate. There is now more well-defined and may represent a small area of parenchymal fibrosis/scarring. Six-month follow-up suggested which can be performed without contrast. There is some mild atelectasis/patchy infiltrate in the right lung base posteriorly. Mild fibrotic changes are present in the left lower lobe. There is centrilobular emphysematous change. A 3 mm nodular density is present in the right minor fissure. Calcified granulomas are present in the left lower lobe. No effusions. Upper abdominal images demonstrates cholelithiasis. The liver has a somewhat nodular contour and there is mild prominence of the left hepatic lobe. These findings may be seen with cirrhosis/portal hypertension. There is some cortical scarring of the left kidney with left renal cysts. Multiple punctate calcifications are present within the pancreas consistent with chronic pancreatitis There are degenerative changes of the thoracic spine. IMPRESSION: 1. Right upper lobe nodule appears somewhat less apparent and may been due to small area of atelectasis or infiltrate around an area of fibrosis. Continued 6 month follow-up suggested 2. Centrilobular emphysema. 3. Nodular contour of the liver with mild prominence of the left hepatic lobe which may be seen with cirrhosis/portal hypertension with evidence of chronic pancreatitis. 4. Cholelithiasis
== END ==
PROVIDERS: Visit Provider Family Medicine
DX: R91.8 Other nonspecific abnormal finding of lung field (principal)
CPT/HCPCS: 36415; 71270; 82565; 84520; Q9967

== ENCOUNTER → 2018-01-08 10:01 | Outpatient (CLI) | payer MEDICARE, MEDICAID, SELFPAY ==
--- NOTE | 2018-01-08 10:04 | MR_ITS ---
MR cervical spine wo con Ordering Physician: Brad Zapata MD Patient Age: 67 years: Female HISTORY: ITS.REASON: NECK PAIN Unable to turn neck. Neck pops with xPain Neck pain 1 extends neck have numbness right arm. Patient has tremor. TECHNIQUE: Multiplanar Sagittal STIR, T1, T2, axial T1 and T2. On 1.5T Siemens wide bore MRI. 3-D MR myelogram image set obtained & performed on MRI workstation. Additional sagittal thin section T2 weighted dataset obtained from this latter acquisition as well (---76 CPT) COMPARISON : FINDINGS The patient's tremor there is yield some motion artifact on images. The cervical vertebral bodies reveal no compression fracture. The cranial cervical junction is normal Generous Cervical spondylosis, with multilevel degenerative disc changes C2/3 disc and cord normal. C3/4 degenerative disc space narrowing. Diffuse posterior endplate hypertrophic and osteophytic ridging. This yields diffuse hard disc, most evident pronounced towards the right paracentral region. This this flattens the anterior aspect the cervical cord and initially indents the thecal sac to the right paracentral region. Moderate right foraminal encroachment more so than left. Patent central canal stenosis at this level with central canal measuring less than 8 mm AP. Reactive signal changes at endplates and adjacent vertebral most pronounced at C3 followed by superior C4 C4/5 degenerative disc space narrowing at generous diffuse posterior ridging,. Spurring Most evident towards the left paracentral region Diffuse flattening the cervical cord most evident to the left. With pronounced spinal stenosis at this level osseous canal likely narrows <6 mm just to left of midline a moderate bilateral foraminal encroachment most evident the left C5-C6. Marked degenerative disc space narrowing. Again we see posterior endplate ridging and spondylosis which diffusely flattens the cervical cord and yields a fairly pronounced central canal stenosis along with bilateral foraminal encroachment right greater than left C6/7. Disc space narrowing. Hypertrophic ridging slightly less pronounced at this level. Again there is diffuse flattening of the thecal sac and cervical cord with mild central canal stenosis. There may be a additional soft disc protrusion essentially flank by the hypertrophic ridging and spurring. C7/T1, T1/T2, T2/T3 T3/T4 disc intact. There are also degenerative, hypertrophic facet changes throughout the C-spine noted but it is primarily spondylosis and posterior endplate osteophytes that yielding spinal stenosis 3-D MRI myelogram image set was included on is also limited by the patient's motion but we do see multilevel spinal stenosis most pronounced C4-C5 and C5-C6; and to lesser degree C6-7 and C3/4 IMPRESSION 1. Prominent cervical spondylosis with multilevel degenerative disc changes. Pronounced, prominent Canal spinal stenosis results at C4/5 C5-C6 Generous but Slightly less pronounced central canal stenosis C6/7, & C3/4. . The cervical spondylosis, and prominent posterior osteophytic ridging at each of these levels is the primary feature which yields yields the spinal stenosis; as well as yields bilateral foraminal encroachment at each of these levels as in text. For example the hard disc features most evident to the right at C5-C6,; slightly more evident the left at C4/5 ; and most evident midline & right C3/4.. Additional central disc protrusion C6/7 in addition to the spurring ,
--- NOTE | 2018-01-08 10:04 | MR_ITS ---
MR orbits face neck wo/w con Ordering Physician: Brad Zapata MD Patient Age: 67 years: Female HISTORY: ITS.REASON: evaluate for bony lesionabnormal signal focus at ethmoid-sphenoid junction Abnormal MRI 11/03/2017. TECHNIQUE: Pre and postcontrast imaging orbits Precontrast Multiplanar FLAIR, T1, T2 weighted images along w/ axial diffusion/ADC imaging performed on 1.5 T.Siemens, MRI. Postcontrast imaging [id number] ProHance T1-weighted images axial & coronal plane performed COMPARISON :MRI brain 11/03/2017. No previous CT study evident at L the FINDINGS There is an area of focal increased signal. This measures 15 mm AP X 8 mm transverse., X 15 mm height. It is located at the junction of right ethmoid air cell and right sphenoid sinus. I suspect this is most likely an area of inspissated mucoid material in a posterior right ethmoid air cell. CT may be of benefit in follow-up to further confirm such as well. This shows no significant enhancement post contrast. An signal appears to decrease on fat suppression sequences somewhat . Although medial to the apex of the orbit and does not appear to impact optic nerve from what I can see on these images. Analyzing signal patterns this is bright on T1 on previous studies implies mucoid, lipid Or fatty material. Decreases somewhat on fat suppression images implying primarily fatty feature as well. Lack of significant enhancement speaks against a significant lesion also. It can be followed. The remainder ethmoid air cells with some borderline mucosal thickening. The orbits and cells appear normal. The sella and parasellar region normal. Survey images [place] of [place] appears satisfactory. Sella is normal size. IMPRESSION...... The area of increased signal I believe is benign feature related to likely inspissated mucoid material opacifying &, filling a very posterior ethmoid air cell, at junction with right sphenoid sinus It demonstrates primarily fat signal with lack of enhancement. No erosion or impact upon other structures Recommend Follow-up CT sinuses and 3 - 4 months suggested to confirm stability as well and confirm the orbital apex osseous margins remain intact as they would appear to be here
--- NOTE | 2018-01-08 12:45 | HMH.ITSHM ---
GABAPENTIN METFORMIN ADVAIR RESTASIS D3 LOSARTAN POTASSIUM CETIRIZINE HCL FENFOFIBRATE MICRONIZED LEVOTHYROXINE SODIUM GLIMEPIRIDE FUROSEMIDE CYMBALTA PRAVASTATIN AMLODIPINE PROPRANOLOL PREDNISODE OXYCODONE DIAZEPAM BASAQLAR DESONIDE QUIKPEM DESONIDE CREAM TRIANICINOLONE ACTONIDE NEXIUM PRIMIDONE
== END ==
PROVIDERS: Family Provider Family Medicine; PCP Family Medicine; Visit Provider Anesthesiology
DX: M54.2 Cervicalgia (principal)
CPT/HCPCS: 70543; 72141; 76376; A9576

== ENCOUNTER → 2018-01-15 09:49 | Outpatient (POV) | payer MEDICARE, MEDICAID, SELFPAY ==
--- NOTE | 2018-01-15 10:25 | HMH.PAINSOAP ---
[facility] Pain Management SOAP Note Subjective:: Patient is a pleasant 67-year-old white female who presents today for follow-up with cervical MRI. Patient has prominent cervical spondylosis and degenerative changes. Patient rates her pain an 8 out of 10 today. Patient and I did discuss neuro stimulation. Patient is uninterested in this. Patient and I have discussed nutrition along with weight loss. Patient does not want to do physical therapy at this time due to cost. Patient is interested in injective therapy for her neck. She states that most of her pain comes when she is turning her neck. Patient denies any radicular symptoms at this time. ROS General: no recent weight change, no fever, no sleep disturbances Respiratory: no cough, no shortness of air, no recurring pulmonary infections Cardiovascular/Peripheral Vascular: No chest pain, No palpitations, no edema, no shortness of breath. Gastrointestinal: no incontinence, normal bowel movements reported Genitourinary: no incontinence Musculoskeletal: Neck pain Psychiatric: normal mood/ affect Neurological: [denies weakness in extremities], [denies balance issues] Objective:: Physical Exam General: Alert and oriented x3, no acute distress, pleasant and cooperative, [on room air] Lungs: Resps E/U, Symmetrical chest expansion, Eyes: PERRL Musculoskeletal: Flexion and extension of cervical spine somewhat guarded secondary to pain, deep tendon reflexes normal, strength in upper and lower extremities [5/5], [abnormal gait noted] Positive facet loading cervical spine Neurological: speech clear, front office help equal, no gross sensory deficits Assessment:: Cervical spondylosis, degenerative disc disease of the lumbar spine Plan:: We will plan a C5-C6 C6-C7 facet joint injection/medial branch block for the patient. Patient and I discussed if she gets relief from this that we may be able to do a rhizotomy of these levels. Patient is not on any anticoagulation therapy. I will follow-up with the patient after her injections. This note was dictated using voice recognition software and may contain errors or omissions
--- NOTE | 2018-01-15 10:29 | P.CONS_ITS ---
[facility] Pain Management SOAP Note Subjective:: Patient is a pleasant 67-year-old white female who presents today for follow-up with cervical MRI. Patient has prominent cervical spondylosis and degenerative changes. Patient rates her pain an 8 out of 10 today. Patient and I did discuss neuro stimulation. Patient is uninterested in this. Patient and I have discussed nutrition along with weight loss. Patient does not want to do physical therapy at this time due to cost. Patient is interested in injective therapy for her neck. She states that most of her pain comes when she is turning her neck. Patient denies any radicular symptoms at this time. ROS General: no recent weight change, no fever, no sleep disturbances Respiratory: no cough, no shortness of air, no recurring pulmonary infections Cardiovascular/Peripheral Vascular: No chest pain, No palpitations, no edema, no shortness of breath. Gastrointestinal: no incontinence, normal bowel movements reported Genitourinary: no incontinence Musculoskeletal: Neck pain Psychiatric: normal mood/ affect Neurological: [denies weakness in extremities], [denies balance issues] Objective:: Physical Exam General: Alert and oriented x3, no acute distress, pleasant and cooperative, [ on room air] Lungs: Resps E/U, Symmetrical chest expansion, Eyes: PERRL Musculoskeletal: Flexion and extension of cervical spine somewhat guarded secondary to pain, deep tendon reflexes normal, strength in upper and lower extremities [5/5], [abnormal gait noted] Positive facet loading cervical spine Neurological: speech clear, health spa manager equal, no gross sensory deficits Assessment:: Cervical spondylosis, degenerative disc disease of the lumbar spine Plan:: We will plan a C5-C6 C6-C7 facet joint injection/medial branch block for the patient. Patient and I discussed if she gets relief from this that we may be able to do a rhizotomy of these levels. Patient is not on any anticoagulation therapy. I will follow-up with the patient after her injections. This note was dictated using voice recognition software and may contain errors or omissions
[2018-01-15 10:55] VITALS: BP 130/68; PULSE 76; RESP 18; O2SAT 98; BMI 45.5
== END ==
PROVIDERS: Family Provider Family Medicine; PCP Family Medicine; Visit Provider Clinical Nurse Specialist Family Health
DX: M47.812 Spondylosis without myelopathy or radiculopathy, cervical region (principal)
CPT/HCPCS: 99212

== ENCOUNTER → 2018-02-13 08:20 | Outpatient (POV) | payer MEDICARE, MEDICAID, SELFPAY ==
[2018-02-13 08:56] VITALS: BP 100/80; PULSE 78; RESP 18; O2SAT 96; BMI 45.5
--- NOTE | 2018-02-13 09:34 | HMH.PAINSOAP ---
[facility] Pain Management SOAP Note Subjective:: Is a pleasant 67-year-old white female who presents today for follow-up after cervical medial branch blocks. Patient states she had a week of 100% relief in her symptoms. Patient states the pain is beginning to come back. Patient is interested in moving forward with an RFA. Patient and I discussed we may need to do one more medial branch prior to this. Patient would like to see if her insurance will approve the RFA. Patient would like to start with her right side. Patient rates her pain a 6 out of 10 today. ROS General: no recent weight change, no fever, no sleep disturbances Respiratory: no cough, no shortness of air, no recurring pulmonary infections Cardiovascular/Peripheral Vascular: No chest pain, No palpitations, no edema, no shortness of breath. Gastrointestinal: no incontinence, normal bowel movements reported Genitourinary: no incontinence Musculoskeletal: Neck pain Psychiatric: normal mood/ affect, [denies depression], [denies anxiety] Neurological: [denies weakness in extremities], [denies balance issues] Objective:: Physical Exam General: Alert and oriented x3, no acute distress, pleasant and cooperative, [on room air] Lungs: Resps E/U, Symmetrical chest expansion, Eyes: PERRL Musculoskeletal: Flexion and extension of cervical spine somewhat guarded secondary to pain, deep tendon reflexes normal, strength in upper and lower extremities [5/5], antalgic gait noted positive Spurling's test Neurological: speech clear, inspector technician equal, no gross sensory deficits Assessment:: 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 Patient is not on any anticoagulation therapy. Patient got good results from her medial branch block. Patient and I discussed that if we need to repeat the medial branch block prior that we will schedule her for this. This note was dictated using voice recognition software and may contain errors or omissions
--- NOTE | 2018-02-13 09:37 | P.CONS_ITS ---
[facility] Pain Management SOAP Note Subjective:: Is a pleasant 67-year-old white female who presents today for follow-up after cervical medial branch blocks. Patient states she had a week of 100% relief in her symptoms. Patient states the pain is beginning to come back. Patient is interested in moving forward with an RFA. Patient and I discussed we may need to do one more medial branch prior to this. Patient would like to see if her insurance will approve the RFA. Patient would like to start with her right side. Patient rates her pain a 6 out of 10 today. ROS General: no recent weight change, no fever, no sleep disturbances Respiratory: no cough, no shortness of air, no recurring pulmonary infections Cardiovascular/Peripheral Vascular: No chest pain, No palpitations, no edema, no shortness of breath. Gastrointestinal: no incontinence, normal bowel movements reported Genitourinary: no incontinence Musculoskeletal: Neck pain Psychiatric: normal mood/ affect, [denies depression], [denies anxiety] Neurological: [denies weakness in extremities], [denies balance issues] Objective:: Physical Exam General: Alert and oriented x3, no acute distress, pleasant and cooperative, [ on room air] Lungs: Resps E/U, Symmetrical chest expansion, Eyes: PERRL Musculoskeletal: Flexion and extension of cervical spine somewhat guarded secondary to pain, deep tendon reflexes normal, strength in upper and lower extremities [5/5], antalgic gait noted positive Spurling's test Neurological: speech clear, stereo map plotter operator equal, no gross sensory deficits Assessment:: 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 Patient is not on any anticoagulation therapy. Patient got good results from her medial branch block. Patient and I discussed that if we need to repeat the medial branch block prior that we will schedule her for this. This note was dictated using voice recognition software and may contain errors or omissions
== END ==
PROVIDERS: Family Provider Family Medicine; PCP Family Medicine; Visit Provider Clinical Nurse Specialist Family Health
DX: M50.30 Other cervical disc degeneration, unspecified cervical region; M47.892 Other spondylosis, cervical region; M54.02 Panniculitis affecting regions of neck and back, cervical region
CPT/HCPCS: 99213

== ENCOUNTER → 2018-02-13 09:55 | Outpatient (POV) | payer MEDICARE, MEDICAID, SELFPAY | PROVIDERS: Visit Provider Otolaryngology | DX: Z00.00 Encounter for general adult medical examination without abnormal findings (principal) ==

== ENCOUNTER → 2018-07-02 08:30 | Outpatient (CLI) | payer MEDICARE, MEDICAID, SELFPAY ==
--- NOTE | 2018-07-02 08:35 | CT_ITS ---
CT sinus wo con CLINICAL INDICATION: ITS.REASON: CHRONIC ETHMOIDAL SINUSITIS ORDERING PHYSICIAN: Jennifer Keane MD PATIENT AGE: 67 years COMPARISON: 01/08/2018 TECHNIQUE:Axial images obtained with sagittal and coronal reformats. All CT scans at the facility use one or more dose reduction, viz: automated exposure control, ma/kV adjustment per patient size (including targeted exams where dose is matched to indication, i.e. head), or iterative reconstruction technique. FINDINGS: Persistent opacification is present within an enlarged right posterior ethmoid air cell measuring 16 mm AP and 9 mm transverse corresponding to the MRI abnormality of 01/08/2018 not significant change consistent with either a mucous retention cyst or a small mucocele. This measures 17 mm cephalad to caudad. The lateral wall of the ethmoid sinus at this region which represents the medial wall of the orbit posteriorly appears preserved. The remaining sinuses have an unremarkable appearance. No sinus air-fluid level.. No significant nasal septal deviation. The TMJs are unremarkable. The orbits have an unremarkable appearance IMPRESSION: 1. 17 x 16 x 9 mm area of soft tissue density within an enlarged right ethmoid air cell posteriorly consistent with a mucocele. This does appear stable compared to MRI of 01/08/[address] sinuses
== END ==
PROVIDERS: PCP Family Medicine; Visit Provider Otolaryngology
DX: J32.2 Chronic ethmoidal sinusitis (principal)
CPT/HCPCS: 70486; 99213

== ENCOUNTER → 2018-07-02 09:10 | Outpatient (POV) | payer MEDICARE, MEDICAID, SELFPAY ==
[2018-07-02 09:21] VITALS: BP 142/66; PULSE 84; RESP 18; O2SAT 98; BMI 45.5
--- NOTE | 2018-07-02 09:35 | HMH.PAINSOAP ---
[facility] Pain Management SOAP Note Subjective:: Patient is a pleasant 67-year-old white female who presents today for follow-up after cervical RFA. Patient is doing extremely well stating her neck pain has dissipated. Patient has had an RFA in her low back over a year ago when she states that at this time her back pain has begun to return. Patient has had 2 rounds of medial branch blocks with up to 80% relief of her symptoms. Patient states that the pain is worse when she has any kind of twisting movements. Patient had almost a year relief with her previous RFA. I believe it would be beneficial to repeat this. ROS General: no recent weight change, no fever, no sleep disturbances Respiratory: no cough, no shortness of air, no recurring pulmonary infections Cardiovascular/Peripheral Vascular: No chest pain, No palpitations, no edema, no shortness of breath. Gastrointestinal: no incontinence, normal bowel movements reported Genitourinary: no incontinence Musculoskeletal: Back pain Psychiatric: normal mood/ affect Neurological: [denies weakness in extremities], [denies balance issues] Objective:: Physical Exam General: Alert and oriented x3, no acute distress, pleasant and cooperative, [on room air] Lungs: Resps E/U, Symmetrical chest expansion, Eyes: PERRL Musculoskeletal: Flexion and extension of lumbar spine somewhat guarded secondary to pain, deep tendon reflexes normal, strength in upper and lower extremities [5/5], abnormal gait noted, positive Kemps test bilateral lumbar spine, positive facet loading lumbar spine Neurological: speech clear, wholesale buyer equal, no gross sensory deficits Assessment:: Degenerative disc disease lumbar spine with lumbar spondylosis and facet arthropathy Plan:: Patient is continuing a home stretching program along with anti-inflammatories. She is tried and failed physical therapy along with medications. Patient has done well with this therapy in the past. I believe it would be beneficial to do an L3-L4 L4-L5 L5-S1 bilateral RFA starting with right side in repeating it on the left side in 2 weeks after that. Patient is not on anticoagulation therapy. This note was dictated using voice recognition software and may contain errors or omissions
--- NOTE | 2018-07-02 09:39 | P.CONS_ITS ---
[facility] Pain Management SOAP Note Subjective:: Patient is a pleasant 67-year-old white female who presents today for follow-up after cervical RFA. Patient is doing extremely well stating her neck pain has dissipated. Patient has had an RFA in her low back over a year ago when she states that at this time her back pain has begun to return. Patient has had 2 rounds of medial branch blocks with up to 80% relief of her symptoms. Patient states that the pain is worse when she has any kind of twisting movements. Patient had almost a year relief with her previous RFA. I believe it would be beneficial to repeat this. ROS General: no recent weight change, no fever, no sleep disturbances Respiratory: no cough, no shortness of air, no recurring pulmonary infections Cardiovascular/Peripheral Vascular: No chest pain, No palpitations, no edema, no shortness of breath. Gastrointestinal: no incontinence, normal bowel movements reported Genitourinary: no incontinence Musculoskeletal: Back pain Psychiatric: normal mood/ affect Neurological: [denies weakness in extremities], [denies balance issues] Objective:: Physical Exam General: Alert and oriented x3, no acute distress, pleasant and cooperative, [on room air] Lungs: Resps E/U, Symmetrical chest expansion, Eyes: PERRL Musculoskeletal: Flexion and extension of lumbar spine somewhat guarded secondary to pain, deep tendon reflexes normal, strength in upper and lower extremities [5/5], abnormal gait noted, positive Kemps test bilateral lumbar s pine, positive facet loading lumbar spine Neurological: speech clear, director of instruction equal, no gross sensory deficits Assessment:: Degenerative disc disease lumbar spine with lumbar spondylosis and facet arthropathy Plan:: Patient is continuing a home stretching program along with anti-inflammatories. She is tried and failed physical therapy along with medications. Patient has done well with this therapy in the past. I believe it would be beneficial to do an L3-L4 L4-L5 L5-S1 bilateral RFA starting with right side in repeating it on the left side in 2 weeks after that. Patient is not on anticoagulation therapy. This note was dictated using voice recognition software and may contain errors or omissions
== END ==
PROVIDERS: PCP Family Medicine; Visit Provider Clinical Nurse Specialist Family Health
DX: M51.36 Other intervertebral disc degeneration, lumbar region (principal); M47.896 Other spondylosis, lumbar region; M54.06 Panniculitis affecting regions of neck and back, lumbar region
CPT/HCPCS: 70486; 99213

== ENCOUNTER → 2018-08-15 13:52 | Outpatient (POV) | payer MEDICARE, MEDICAID, SELFPAY | DX: Z00.00 Encounter for general adult medical examination without abnormal findings (principal) ==

== ENCOUNTER → 2018-08-20 09:05 | Outpatient (POV) | payer MEDICARE, MEDICAID, SELFPAY ==
[2018-08-20 09:30] VITALS: BP 127/70; PULSE 71; RESP 18; O2SAT 98; BMI 45.5
--- NOTE | 2018-08-20 09:41 | HMH.PAINSOAP ---
[facility] Pain Management SOAP Note Subjective:: Is a pleasant 67-year-old white female who we are treating for low back pain with lumbar spondylosis facet arthropathy and spinal stenosis with neurogenic claudication. Patient has noted ligamentum flavum hypertrophy in her left wrist MRI. Patient and I discussed potentially MILD. Patient may be interested in this to. Patient and I discussed hyper analgesia along with weight loss. Patient states she is uninterested in repeating physical therapy at this time she states she tries to exercise as much as possible however when she stands or walks she becomes bent over to help alleviate some of the pain in her legs. ROS General: no recent weight change, no fever, no sleep disturbances Respiratory: no cough, no shortness of air, no recurring pulmonary infections Cardiovascular/Peripheral Vascular: No chest pain, No palpitations, no edema, no shortness of breath. Gastrointestinal: no incontinence, normal bowel movements reported Genitourinary: no incontinence Musculoskeletal: Back pain, leg pain Psychiatric: normal mood/ affect Neurological: [denies weakness in extremities], [denies balance issues] Objective:: Physical Exam General: Alert and oriented x3, no acute distress, pleasant and cooperative, [on room air] Lungs: Resps E/U, Symmetrical chest expansion, Eyes: PERRL Musculoskeletal: Flexion and extension of lumbar spine somewhat guarded secondary to pain, deep tendon reflexes normal, strength in upper and lower extremities [5/5], [abnormal gait noted] Neurological: speech clear, computer numerical control machinist equal, no gross sensory deficits Assessment:: Degenerative disc disease lumbar spine with lumbar spondylosis and facet arthropathy along with spinal stenosis with neurogenic claudication Plan:: We will give the patient information on the M ILD procedure. If patient is interested in moving forward with this we will get a new MRI to help determine levels. And then we will follow-up with the patient. Dr. Zapata has reviewed this note and agrees with this plan of care. This note was dictated using voice recognition software and may contain errors or omissions
== END ==
PROVIDERS: PCP Family Medicine; Visit Provider Clinical Nurse Specialist Family Health
DX: M51.36 Other intervertebral disc degeneration, lumbar region (principal); M54.06 Panniculitis affecting regions of neck and back, lumbar region; M48.062 Spinal stenosis, lumbar region with neurogenic claudication; M47.816 Spondylosis without myelopathy or radiculopathy, lumbar region
CPT/HCPCS: 77080; 99213

== ENCOUNTER → 2018-08-20 10:00 | Outpatient (CLI) | payer MEDICARE, MEDICAID, SELFPAY ==
--- NOTE | 2018-08-20 10:03 | XR_ITS ---
XR DEXA axial skeleton HISTORY: ITS.REASON: CKD III, POST MENOPAUSAL, RENAL OSTEODYSTROPHY ORDERING PHYSICIAN: Marc Syed PATIENT AGE: 67 years COMPARISON: None FINDINGS: The BMD measured at the Right femoral neck is 0.909 g/cm squared with a T score of -0.9. This is considered Normal according to the World Health Organization criteria. Fracture risk is Low. Treatment is advised. The L1 L4 density has a T score of 2.1 IMPRESSION: Normal bone density. Low fracture risk. Suggest follow-up exam July 2020
== END ==
PROVIDERS: PCP Family Medicine; Visit Provider Internal Medicine Nephrology
DX: Z78.0 Asymptomatic menopausal state (principal); N25.0 Renal osteodystrophy; N18.3 Chronic kidney disease, stage 3 (moderate)
CPT/HCPCS: 77080

== ENCOUNTER → 2018-11-14 10:07 | Outpatient (CLI) | payer MEDICARE, MEDICAID, SELFPAY ==
[2018-11-14 10:42] LABS: Basophils # 0.1 K/mm3 (0-0.2); Basophils % 0.7 % (0.1-2.0); Eosinophils # 0.3 K/mm3 (0.0-0.4); Hematocrit 39.1 % (37.0-47.0); Hemoglobin 12.8 g/dL (12.2-16.2); Lymphocytes # 3.1 K/mm3 (0.7-4.5); Lymphocytes % 38.6 % (10-50); Mean Corpuscular HGB Conc 32.8 g/dL (31.8-35.4); Mean Corpuscular Hemoglobin 30.3 pg (27.0-31.2); Mean Corpuscular Volume 92.3 fl (81-99); Mean Platelet Volume 8.6 fl (7.4-10.4); Monocytes # 0.4 K/mm3 (0.1-1.0); Monocytes % 5.1 % (1.7-9.3); Neutrophils # 4.1 K/mm3 (1.8-7.8); Neutrophils % 51.6 % (37.0-80.0); Platelet Count 200 K/mm3 (142-424); Red Blood Count 4.24 M/mm3 (4.20-5.40); Red Cell Distribution Width 13.2 % (11.5-17.5); White Blood Count 7.9 K/mm3 (4.8-10.8)
[2018-11-14 11:29] LABS: Alanine Aminotransferase 25 U/L (12-78); Albumin Level 3.3 gm/dL (3.4-5.0); Albumin/Globulin Ratio 0.9 (1.1-1.8); Alkaline Phosphatase 42 U/L (46-116); Anion Gap 15.7 mEq/L (5-15); Aspartate Amino Transferase 24 U/L (15-37); Bilirubin,Total 0.3 mg/dL (0.2-1.0); Blood Urea Nitrogen 24 mg/dL (7-18); Calcium 9.2 mg/dL (8.5-10.1); Carbon Dioxide 25 mmol/L (21.0-32.0); Chloride 100 mmol/L (98-107); Creatinine,Serum 1.11 mg/dL (0.55-1.02); Estimated Glomerular Filt Rate 49 ml/min (>60); GFR (African American) 59 ML/MIN (>60); Globulin 3.8 gm/dl (1.3-3.2); Glucose 149 mg/dL (74-106); Potassium 4.7 mmoL/L (3.5-5.1); Sodium 136 mmol/L (136-145); Total Protein,Serum 7.1 gm/dL (6.4-8.2)
== END ==
PROVIDERS: Visit Provider Specialist
DX: R25.1 Tremor, unspecified (principal)
CPT/HCPCS: 36415; 80053; 85025

== ENCOUNTER → 2018-12-10 10:01 | Outpatient (CLI) | payer MEDICARE, MEDICAID, SELFPAY | PROVIDERS: Visit Provider Specialist | DX: R25.1 Tremor, unspecified (principal) | CPT/HCPCS: 36415 ==

== ENCOUNTER → 2020-03-20 09:13 | Outpatient (CLI) | payer MEDICARE, OTHER, SELFPAY ==
--- NOTE | 2020-03-20 09:23 | CA_ITS ---
APPROVED REPORT Right Lower Extremity Venous Study for DVT. Punch Press Feeder: Nehal Dunbar RVT Indications Lower Extremity Pain: Right Lower Extremity Edema: Right EDEMA Risk Factors Obesity Medications Aspirin Vein Imaging CFV (R): compressive, spontaneous, phasic, augmentation FEM (R): compressive, spontaneous, phasic, augmentation POP (R): compressive, spontaneous, phasic, augmentation PTV (R): Compressible GSV (R): Compressible Peroneals (R):Compressible GAS (R): Compressible Findings Study suggests no evidence of DVT of the right lower extremity. Study suggests no evidence of SVT of the right lower extremity. Conclusion Study suggests no evidence of DVT of the right lower extremity. Study suggests no evidence of SVT of the right lower extremity. Electronically signed by : Ulysses Caceres MD 03/20/2020 17:41:03
== END ==
PROVIDERS: PCP Family Medicine; Visit Provider Family Medicine
DX: R60.0 Localized edema (principal); M79.661 Pain in right lower leg
CPT/HCPCS: 93971

== ENCOUNTER → 2020-09-08 08:10 | Outpatient (CLI) | payer MEDICARE, OTHER, SELFPAY ==
--- NOTE | 2020-09-08 08:14 | CT_ITS ---
PROCEDURE: CT LUNG SCREENING CLINICAL INDICATION: SCREENING Current smoker 62 pack year smoking history copd COMPARISON: CT CHESTWW CT chest wo/w con from 07/20/2018 TECHNIQUE: The exam was performed on a GE Light Speed [address] scanner using 2.90 mGy CTDI. A low dose helical CT CHEST was performed on a multi-detector scanner. All CT scans at the facility use one or more dose reduction, viz: automated exposure control, ma/kV adjustment per patient size (including targeted exams where dose is matched to indication, i.e. head), or iterative reconstruction technique. The LDCT was performed in a facility that meets the criteria for the screening program. Data regarding this exam was submitted to ACR which is an approved registry. The order for this exam indicates that it came as a result of a lung cancer screening counseling shard decision-making visit that included all the elements required of such a visit including smoking cessation. The radiologist interpreting this exam meets the CMS criteria for the LDCT lung cancer screening program. The exam is reported using the Lung-RADS classification scale and reported to the ACR registry. NOTE: This study was performed for the specific purposes of lung cancer screening and is not an alternative to diagnostic chest CT. RADIATION DOSE: CTDI vol(CT dose Index-volume) = 2.90mG DLP (Dose Length Product) = 108.64 mGcm FINDINGS: COPD changes. Small cluster of nodules noted in the left lower lobe which are stable some of which are calcified. No suspicious nodules apparent. Chronic atelectatic change in the lingula OTHER FINDINGS: Severe coronary artery calcifications. IMPRESSION: Lung-RADS Category 2 Benign Appearance or Behavior Follow-up: Continue annual screening with LDCT in 12 months Coronary artery disease Dictated by: Ulysses Caceres MD 09/13/2020 08:56 Ulysses Caceres MD in [place] 09/13/2020 08:56
== END ==
PROVIDERS: PCP Family Medicine; Visit Provider Family Medicine
DX: Z87.891 Personal history of nicotine dependence (principal); Z12.2 Encounter for screening for malignant neoplasm of respiratory organs
CPT/HCPCS: 71271

== ENCOUNTER → 2021-07-20 08:45 | Outpatient (POV) | payer MEDICARE, OTHER, SELFPAY ==
[2021-07-20 08:59] VITALS: BP 173/82; PULSE 73; RESP 20; TEMP 36.5; O2SAT 95; BMI 47.0
--- NOTE | 2021-07-20 09:51 | HMH.PMCON ---
Assessment and Plan (1) Degenerative joint disease (DJD) of lumbar spine Status: Chronic Category: Medical Code(s): M47.816 - Spondylosis without myelopathy or radiculopathy, lumbar region (2) Lumbar radiculopathy Status: Chronic Category: Medical Code(s): M54.16 - Radiculopathy, lumbar region (3) Spinal stenosis Status: Chronic Category: Medical Code(s): M48.00 - Spinal stenosis, site unspecified (4) Neurogenic claudication Status: Chronic Category: Medical Code(s): G95.19 - Other vascular myelopathies - Assessment and plan all Dx Assessment and Plan for all problems:: Patient has tried failed conservative therapies of physical therapy in the past along with continued home stretching. She has had multiple rounds of injection therapy which included epidurals as well as RFA's. She has gotten minimal relief. She does have a Nevro stimulator that has not given her any significant relief. Per the patient's last MRI, she does have spinal stenosis and is exhibiting neurogenic claudication symptoms. We will schedule her for an epidural L4-L5 with an epidurogram to determine if she is an appropriate candidate for mild procedure. She is diabetic and is on Metformin. She is not on any anticoagulation therapy. We will see the patient back in the clinic after the procedure to discuss a further plan of care. Of note, the patient is currently on gabapentin, diazepam, oxycodone, and OxyContin. Possible side effects of corticosteroids have been discussed with the patient. Risks and benefits of the procedure have been explained to the patient. Patient would like to proceed with the procedure. Patient has been instructed to contact the clinic with any concerns before the next appointment. Dr. Zapata has reviewed this note and agrees with this plan of care. This note was dictated using voice recognition software and make contain errors or omissions. HPI - Data of Consult Patient: new to practice Consult date: 07/20/21 Requesting Physician: Kyung Song APRN - Consult Narrative Reason for consult: Low back pain with radiation into left leg History of present illness: Patient is a 70-year-old white female who presents today for consultation for low back pain. She is rating her pain a 10 out of 10 today. Patient says that the pain has progressively worsened during COVID. She did not come to the clinic prior due to concerns of jermaine Covid. She is having low back pain with radiation into left hip, left leg to left ankle. She does have a history of neuropathy and does have numbness and tingling bilateral lower extremities. She denies any bowel or bladder changes or any saddle anesthesia. She has had RFA in 2019 in our clinic that gave her 3 months relief at about 50%. Pain did immediately return following the 3 months. Patient says her pain is worse with standing and walking. She is only able to stand for approximately 5 minutes without having to sit down. She does feel better when leaning forward. She describes the pain as a constant ache. Patient is diabetic and is on Metformin. She does have notable tremors during conversation today. Patient is on medications prescribed by her PCP of gabapentin, diazepam, oxycodone, and OxyContin. Patient also has a neurostimulator in place. The stimulator has not given her any relief. CC: Kyung Song APRN [facility] History I have reviewed the patient's past medical history: Yes Medical History: Reports:: Asthma, Chronic Obstructive Pulmonary Disease (COPD), Diabetes Mellitus Type 2, Hyperlipidemia, Hypertension, Lung Disease (copd) Denies:: Cancer, Diabetes Mellitus Type 1, MRSA, Seizures *Have you ever received a pneumonia vaccine?: Yes *Have you received a flu vaccine this season?: Yes Other Medical History: Reports: Arthritis, Cataracts, Fibromyalgia, Hypothyroidism, Thyroid Disease, Other. Denies: Blood Transfusion Reaction Laterality Cases: Left: Arthrosco
== END ==
PROVIDERS: Visit Provider Clinical Nurse Specialist Family Health
DX: M47.896 Other spondylosis, lumbar region (principal); M54.16 Radiculopathy, lumbar region; M48.00 Spinal stenosis, site unspecified; G95.19 Other vascular myelopathies
CPT/HCPCS: 99202; G0463

== ENCOUNTER 2021-08-10 15:59 | Day surgery (SDC) | payer MEDICARE, OTHER, SELFPAY ==
[2021-08-10 16:09] VITALS: BP 130/80; BP 155/77; PULSE 67; PULSE 72; RESP 20; TEMP 36.2; O2SAT 96; O2SAT 97; BMI 44.9
[2021-08-10 16:15] VITALS: BP 172/85; PULSE 74; RESP 18; O2SAT 97
[2021-08-10 16:20] VITALS: PULSE 72; PULSE 73; RESP 18; O2SAT 97
--- NOTE | 2021-08-10 16:30 | HMH.PMPROC ---
- Procedure Date: 08/10/21 Time: 16:30 Anesthesiologist:: Brad Zapata MD Complications:: None Pre-procedure Diagnosis:: Degenerative disc disease of lumbar spine with lumbar radiculopathy symptoms Post-procedure Diagnosis:: Same Indications for Procedure:: The patient is a pleasant 70-year-old white female who we are treating for low back pain with lumbar radiculopathy symptoms and lumbar spinal stenosis with neurogenic claudication symptoms. She has had medial branch blocks, RFA and epidural steroid injections which have not given her much relief. She does have significant neurogenic claudication symptoms and lumbar spinal stenosis with ligamentum flavum hypertrophy. We will do lumbar epidural steroid injection with epidurogram today to see if this helps with her pain symptoms. Procedure Details:: Informed consent was obtained and the risk and benefits of the procedure was explained to the patient. The patient was taken to the procedure room. The patient was placed prone on the procedure table. The patient was prepped and draped in sterile fashion. C-arm fluoroscopy was used to view the lumbar spine. Skin and subcutaneous tissues were anesthetized using lidocaine. I placed an 18-gauge epidural needle and advanced into the L4-L5 interspace using fluoroscopic guidance and [id number] to air. After confirmation of needle placement in the epidural space with dye I injected 2 mL of lidocaine 1.5% with Depo-Medrol 80 mg. Patient tolerated the procedure well with no complications. Plan and Disposition:: Based on dye spread this patient is a good candidate for minimally invasive lumbar decompression bilateral L3-L4 and L4-L5. We will not do a epidural at that procedure because of difficulty placement. However I do believe that she would benefit significantly from bilateral L3-L4 and L4-L5 minimally invasive lumbar decompression.
== END 2021-08-10 16:36 | disposition home or self-care (01) ==
LOC: SC.PAINP 16:01
PROVIDERS: PCP Family Medicine; Visit Provider Anesthesiology
DX: M51.16 Intervertebral disc disorders with radiculopathy, lumbar region (principal); E78.5 Hyperlipidemia, unspecified; I10 Essential (primary) hypertension; J44.9 Chronic obstructive pulmonary disease, unspecified; E11.9 Type 2 diabetes mellitus without complications; E03.9 Hypothyroidism, unspecified; Z72.0 Tobacco use; I25.10 Atherosclerotic heart disease of native coronary artery without angina pectoris; K21.9 Gastro-esophageal reflux disease without esophagitis; M19.90 Unspecified osteoarthritis, unspecified site; Z88.6 Allergy status to analgesic agent; Z88.1 Allergy status to other antibiotic agents
CPT/HCPCS: 62323; 76000; J1040; Q9966

== ENCOUNTER → 2021-08-27 10:57 | Outpatient (CLI) | payer MEDICARE, OTHER, SELFPAY ==
[2021-08-27 11:34] LABS: Basophils # 0.1 K/mm3 (0-0.2); Eosinophils # 0.3 K/mm3 (0.0-0.4); Hematocrit 42.3 % (37.0-47.0); Hemoglobin 13.2 g/dL (12.2-16.2); Lymphocytes # 3.2 K/mm3 (0.7-4.5); Lymphocytes % 29.6 % (10-50); Mean Corpuscular HGB Conc 31.3 g/dL (31.8-35.4); Mean Corpuscular Hemoglobin 30.1 pg (27.0-31.2); Mean Corpuscular Volume 96.2 fl (81-99); Mean Platelet Volume 8.8 fl (7.4-10.4); Monocytes # 0.5 K/mm3 (0.1-1.0); Monocytes % 4.7 % (1.7-9.3); Neutrophils # 6.6 K/mm3 (1.8-7.8); Neutrophils % 61.7 % (37.0-80.0); Platelet Count 218 K/mm3 (142-424); Red Cell Distribution Width 14.5 % (11.5-17.5); White Blood Count 10.7 K/mm3 (4.8-10.8)
[2021-08-27 12:20] LABS: Chloride 103 mmol/L (98-107); Potassium 4.1 mmoL/L (3.5-5.1); Sodium 135 mmol/L (136-145)
[2021-08-27 12:23] LABS: Blood Urea Nitrogen 16 mg/dl (7-17); Estimated Glomerular Filt Rate 71 ml/min (>60); GFR (African American) 86 ML/MIN (>60)
[2021-08-27 12:24] LABS: Anion Gap 15.1 mEq/L (5-15); Calcium 8.8 mg/dl (8.4-10.2); Carbon Dioxide 21 mmol/L (22.0-30.0); Glucose 194 mg/dl (74-100)
== END ==
PROVIDERS: PCP Family Medicine; Visit Provider Anesthesiology
DX: Z01.812 Encounter for preprocedural laboratory examination (principal); Z11.52 Encounter for screening for COVID-19; M51.36 Other intervertebral disc degeneration, lumbar region
CPT/HCPCS: 36415; 80048; 85025; C9803; U0003; U0005

== ENCOUNTER 2021-08-30 10:27 | Day surgery (SDC) | payer MEDICARE, OTHER, SELFPAY ==
[2021-08-26 13:01] VITALS: BMI 44.9
[2021-08-30 11:04] VITALS: BP 129/70; PULSE 73; RESP 18; TEMP 36.5; O2SAT 98
--- NOTE | 2021-08-30 12:30 | P.PN_ITS ---
[facility] Anesthesia Checklist - Patient Identification Patient Identification: Arm Band - Structural Data Admitted From: Home Planned Operative Procedure/s: Lumbar decompression Consent for Planned Operative Procedure(s) Verified: Yes - NPO Status Verified Time NPO: 00:00 - Additional verifications Anesthesia Reactions: No Hx Blood Transfusions: No Blood Transfusion Reaction: No - Airway Assessment C-Spine Mobility Assessed: Yes TMJ Mobility Assessed: Yes Dentition: Edentulous - Neurological Assessment Level of Consciousness: Awake Hx Seizures: No Numbness or tingling in extremities: No - Anesthesia Plan Anesthesia Risk discussed: Yes Anesthesia Plan: Verified ASA Class: III Anesthesia Type: MAC [facility] History I have reviewed the patient's past medical history: Yes Medical History: Reports:: Asthma, Chronic Obstructive Pulmonary Disease (COPD), Coronary Artery Disease, Diabetes Mellitus Type 2, Hyperlipidemia, Hypertension, Lung Disease (copd) Denies:: Cancer, Diabetes Mellitus Type 1, Internal Pacemaker, MRSA, Seizures *Have you ever received a pneumonia vaccine?: Yes *Have you received a flu vaccine this season?: Yes Other Medical History: Reports: Arthritis, Cataracts, Fibromyalgia, Hypothyroidism, Thyroid Disease, Other. Denies: Blood Transfusion Reaction Anesthesia experience/problems:: None Laterality Cases: Left: Arthroscopy Knee, Right: Myringotomy (Ear Tubes), Bilateral: Carpal Tunnel Release, Mastectomy Other Surgeries: Yes: EGD, Hysterectomy-Total, Other. No: Pacemaker Amputation: No Fractures: No - *Social History Last grade of school completed: Some college Smoking Status: Current every day smoker Tobacco Type: cigarettes # Packs/Day (cigarettes): 1 #Yrs smoked (if former smoker): 60 Alcohol Intake: never Alcohol Intake Frequency:: other Substance Use Type: denies use *Occupational Status:: retired Housing: house Household Members: other *Travel in the last 8 weeks: None Family Hx:: Cancer
--- NOTE | 2021-08-30 14:11 | HMH.OPNOTE ---
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 She has failed all previous conservative therapy including injections, physical therapy and oral medications. She has increasing pain while walking and standing. She has significant spinal stenosis at L3-L4 and L4-L5 on epidurogram and on MRI. I do believe she would benefit from bilateral L3-L4 and L4-L5 minimally invasive lumbar decompression. Operative findings:: None Operative note:: Informed consent was obtained and the risk and benefits of the procedure was explained to the patient. The patient was taken to the operating room and placed prone on the procedure table. The patient was prepped and draped in sterile fashion. C-arm fluoroscopy was used to view the lumbar spine. The skin and subcutaneous tissues were anesthetized using lidocaine. A epidural needle was inserted and advanced into the L3-L4 interspace. After confirmation of needle placement in the epidural space, dye was injected in a contralateral oblique view. There was an epidurogram seen at L3-L4 and L4-L5. Significant stenosis was seen at L3-L4 and L4-L5. The skin and subcutaneous tissues again were anesthetized using lidocaine. An incision was made and a access trocar was inserted and advanced to contact at the superior aspect of the L4 lamina on the left side. And a contralateral oblique view the side was viewed. Using a bone rongeur and tissue sculptor we debulked bone from the L3-L4 and L4-L5 interspace on the left side. We then used the tissue sculptor to debulk ligament at the L3-L4 and L4-L5 interspace on the left side. We then moved over to the right side and debulked bone and ligament from L3-L4 and L4-L5 on the right side. There is opening of the stenosis at L3-L4 and L4-L5 bilaterally. The access trocar was removed. A total of 3 mL's of dye was used. There is good spread of dye above and below this level as well. We injected 80 mg Depo-Medrol through the epidural needle. The epidural needle was removed and dressings were placed. This encounter for exam is for normal comparison and control in a clinical research program Patient was taken to recovery in stable condition. Patient was discharged home neurologically intact and with good relief of pain symptoms. Plan and disposition: We will follow-up with this patient in 2 weeks. Will reevaluate symptoms at that time. Condition: stable Disposition: PACU Complications:: None
[2021-08-30 14:14] VITALS: BP 99/62; PULSE 76; RESP 18; TEMP 36.6; O2SAT 95
[2021-08-30 14:24] VITALS: BP 117/69; PULSE 74; RESP 18; O2SAT 98
[2021-08-30 14:33] VITALS: BP 118/69; PULSE 73; RESP 18; O2SAT 96
[2021-08-30 14:38] VITALS: BP 134/69; PULSE 74; RESP 18; O2SAT 96
[2022-03-24 10:57] LABS: POC Glucose,Bedside 112 (70-110)
== END 2021-08-30 14:44 | disposition home or self-care (01) ==
LOC: OR 10:29
PROVIDERS: PCP Family Medicine; Visit Provider Anesthesiology
DX: M51.16 Intervertebral disc disorders with radiculopathy, lumbar region (principal); M48.062 Spinal stenosis, lumbar region with neurogenic claudication; Z00.6 Encounter for examination for normal comparison and control in clinical research program; J44.9 Chronic obstructive pulmonary disease, unspecified; I25.10 Atherosclerotic heart disease of native coronary artery without angina pectoris; E11.9 Type 2 diabetes mellitus without complications; E78.5 Hyperlipidemia, unspecified; I10 Essential (primary) hypertension; J45.909 Unspecified asthma, uncomplicated; M19.90 Unspecified osteoarthritis, unspecified site; E03.9 Hypothyroidism, unspecified; Z80.9 Family history of malignant neoplasm, unspecified
CPT/HCPCS: 0275T; 82962; 96374; C1889; J1040; J2704; J3370

== ENCOUNTER → 2021-09-16 09:49 | Outpatient (POV) | payer MEDICARE, OTHER, SELFPAY ==
[2021-09-16 10:08] VITALS: BP 130/68; PULSE 78; RESP 20; TEMP 36.3; O2SAT 96; BMI 44.9
--- NOTE | 2021-09-16 12:18 | HMH.PAINSOAP ---
[facility] Pain Management SOAP Note Subjective:: Patient is a pleasant 70-year-old female who presents today after a minimally invasive lumbar decompression procedure on August 30, 2021. After the procedure, patient had significant relief about 70 to 80%. She says that her radiating pain to her left side has gotten a lot better. She has been able to increase her activity since then. Today, her neck and upper back is bothering her more. She says that she is having trouble with her range of motion of her neck. She has radiating pains from her neck to bilateral extremities. We have previously done cervical medial branch blocks and RFA's in 2018 at C5-C6 and C6-7. Patient had 80 to 90% relief after these procedures in 2018. She is wanting to repeat these procedures again. For pain management, patient is taking OxyContin 40 mg twice a day, oxycodone 5 mg twice a day and gabapentin 600 mg 4 times a day that are prescribed by Dr. Walters. [facility] #[id number] with an active morphine equivalent of 0. Review of Systems: General: No recent weight changes, no fever, no sleep disturbances Respiratory: No cough, no shortness of air, no recurring pulmonary infections Cardiovascular/peripheral vascular: No chest pain, no palpitations, no edema, no shortness of breath Gastrointestinal: No new onset incontinence, normal bowel movements reported Genitourinary: No new onset incontinence Musculoskeletal: Neck pain, low back pain Psychiatric: [Normal mood/affect] Neurological: [Denies weakness in extremities], [denies balance issues] Objective:: General: Alert and oriented x3, no acute distress, pleasant and cooperative, [on room air] Lungs: Respirations even and unlabored, symmetrical chest expansion Eyes: PERRL Musculoskeletal: Flexion and extension of cervical and lumbar [spine] somewhat guarded secondary to pain, [antalgic gait noted] Neurological: Speech clear, no gross sensory deficit Assessment:: Degenerative disc disease of the cervical and lumbar spine with cervical and lumbar radiculopathy symptoms, spinal stenosis with neurogenic claudication Plan:: Patient had 70 to 80% relief after her minimally invasive lumbar decompression procedure at L3-L4, L4-L5 bilaterally. She continues to have relief from this procedure. Today, she is complaining of neck pain. We have previously done cervical medial branch block and RFA at C5-C6 C6-C7 in 2018. Patient has tried and failed conservative therapy such as oral medication, physical therapy, and at home exercises for greater than 6 weeks. We will schedule the patient for a bilateral RFA at C5-C6 C6-C7. Risks and benefits of the procedure have been explained to the patient. Patient would like to proceed with the procedure. Patient is not on any blood thinners. Patient has been instructed to contact the clinic with any concerns before the next appointment. Dr. Zapata has reviewed this note and agrees with this plan of care. This note was dictated using voice recognition software and make contain errors or omissions. [facility] History Medical History: Reports:: Asthma, Chronic Obstructive Pulmonary Disease (COPD), Coronary Artery Disease, Diabetes Mellitus Type 2, Hyperlipidemia, Hypertension, Lung Disease (copd) Denies:: Cancer, Diabetes Mellitus Type 1, Internal Pacemaker, MRSA, Seizures *Have you ever received a pneumonia vaccine?: Yes *Have you received a flu vaccine this season?: Yes Other Medical History: Reports: Arthritis, Cataracts, Fibromyalgia, Hypothyroidism, Thyroid Disease, Other. Denies: Blood Transfusion Reaction Laterality Cases: Left: Arthroscopy Knee, Right: Myringotomy (Ear Tubes), Bilateral: Carpal Tunnel Release, Mastectomy Other Surgeries: Yes: EGD, Hysterectomy-Total, Other. No: Pacemaker Amputation: No Fractures: No - *Social History Smoking Status: Current every day smoker Tobacco Type: cigarettes # Packs/Day (cigarettes): 1 #Yrs smoked (if former smoker): 60 Alcohol Intake: never A
== END ==
PROVIDERS: Visit Provider Student in an Organized Health Care Education/Training Program
DX: M50.10 Cervical disc disorder with radiculopathy, unspecified cervical region (principal); M51.16 Intervertebral disc disorders with radiculopathy, lumbar region; M48.062 Spinal stenosis, lumbar region with neurogenic claudication
CPT/HCPCS: 99212; G0463

== ENCOUNTER 2021-09-24 11:35 | Day surgery (SDC) | payer MEDICARE, OTHER, SELFPAY ==
[2021-09-24 12:12] VITALS: BP 126/76; PULSE 67; RESP 20; O2SAT 96
[2021-09-24 12:14] VITALS: BP 115/62; PULSE 71; RESP 20; TEMP 36.5; O2SAT 96; BMI 44.0
[2021-09-24 12:55] VITALS: BP 139/67; PULSE 72; RESP 20; O2SAT 97
[2021-09-24 13:11] VITALS: BP 136/67; PULSE 75; RESP 20; O2SAT 96
--- NOTE | 2021-09-24 13:59 | P.PCN_ITS ---
- Procedure Date: 09/24/21 Time: 13:59 Anesthesiologist:: Brad Zapata MD Complications:: None Pre-procedure Diagnosis:: Degenerative disc disease of the spine with cervical spondylosis and cervical facet arthropathy Post-procedure Diagnosis:: Same Indications for Procedure:: Patient is a pleasant 70-year-old white female who we are treating for neck pain with cervical spondylosis and cervical facet arthropathy. She is done well with previous medial branch blocks and previous RFA's. She presents for RFA to the facet joint/medial branches of C5-C6 and C6-7 on the right side today. Procedure Details:: Cervical RFA Informed consent was obtained and the risk and benefits of the procedure was explained to the patient. Patient was placed prone on the procedure table. The patient was prepped and draped in sterile fashion. C-arm fluoroscopy was used to view the lumbar spine. The skin and subcutaneous tissues were anesthetized using lidocaine. I placed 20-gauge RF needles into the facet joints of C5-C6 and C6-C7 levels on the right side. We underwent sensory stimulation. There is good sensory stimulation at 0.8 V. We underwent motor stimulation. There is no motor stimulation at 2.5 V. We then anesthetized these levels with lidocaine and Depo-Medrol. I used a total of 40 mg Depo-Medrol for both levels. I then burned both levels of C5-C6 and C6-C7 facet joint/medial branches on the right side for 4 minutes at 80 ?C. Patient tolerated the procedure well with no complication. Plan and Disposition:: We will follow-up with her in 2 weeks. Will reevaluate her symptoms at that time and plan on RF ablation to the facet joint/medial branches of C5-C6 and C6- 7 on the left side.
== END 2021-09-24 13:15 | disposition home or self-care (01) ==
PROVIDERS: PCP Family Medicine; Visit Provider Anesthesiology
DX: M50.30 Other cervical disc degeneration, unspecified cervical region (principal); M47.812 Spondylosis without myelopathy or radiculopathy, cervical region; M54.02 Panniculitis affecting regions of neck and back, cervical region; J44.9 Chronic obstructive pulmonary disease, unspecified; I25.10 Atherosclerotic heart disease of native coronary artery without angina pectoris; E11.9 Type 2 diabetes mellitus without complications; E78.5 Hyperlipidemia, unspecified; I10 Essential (primary) hypertension; M19.90 Unspecified osteoarthritis, unspecified site; E03.9 Hypothyroidism, unspecified; M79.7 Fibromyalgia; Z79.899 Other long term (current) drug therapy; J45.909 Unspecified asthma, uncomplicated
CPT/HCPCS: 64633; 64634; J1040

== ENCOUNTER → 2021-10-21 09:58 | Outpatient (POV) | payer MEDICARE, OTHER, SELFPAY ==
[2021-10-21 10:22] VITALS: BP 147/78; PULSE 80; RESP 18; TEMP 35.9; O2SAT 93; BMI 44.9
--- NOTE | 2021-10-21 12:25 | P.CONS_ITS ---
[facility] Pain Management SOAP Note Subjective:: Patient is a pleasant 70-year-old female who presents today for follow-up after a right-sided RFA of the facet joint/medial branches of C5-C6 and C6-C7 on September 24, 2021. Patient is currently being treated for degenerative disc disease of the cervical spine with cervical radiculopathy symptoms, cervical facet arthropathy, cervical spondylosis. After the procedure, patient had significant relief about 80 to 90% on the right side. She says that she had a left RFA scheduled but had to reschedule because of a family emergency. She has a left cervical RFA of C5-C6 C6-C7 on November 05. Rates her pain today as 5 out of 10. Patient is also taking oxycodone 5 mg twice a day, OxyContin 40 mg twice a day, diazepam 10 mg 3 times a day, gabapentin 600 mg 4 times a day that are all prescribed by an outside provider. Patient states that she will have to talk through her primary care because her insurance will stop covering OxyContin. [facility] #[id number] with an active morphine equivalent of 135. Review of Systems: General: No recent weight changes, no fever, no sleep disturbances Respiratory: No cough, no shortness of air, no recurring pulmonary infections Cardiovascular/peripheral vascular: No chest pain, no palpitations, no edema, no shortness of breath Gastrointestinal: No new onset incontinence, normal bowel movements reported Genitourinary: No new onset incontinence Musculoskeletal: Neck pain Psychiatric: [Normal mood/affect] Neurological: [Denies weakness in extremities], [denies balance issues] Objective:: Physical Exam: General: Alert and oriented x3, no acute distress, pleasant and cooperative, [on room air] Lungs: Respirations even and unlabored, symmetrical chest expansion Eyes: PERRL Musculoskeletal: Flexion and extension of cervical [spine] somewhat guarded secondary to pain, [antalgic gait noted] Neurological: Speech clear, no gross sensory deficit Assessment:: Degenerative disc disease of the cervical spine with cervical radiculopathy symptoms, cervical facet arthropathy, cervical spondylosis Plan:: Patient has a schedule of her left cervical RFA of C5-C6 and C6-C7. We will follow-up with this patient after her RFA. Patient has been instructed to contact the clinic with any concerns before the next appointment. Dr. Zapata has reviewed this note and agrees with this plan of care. This note was dictated using voice recognition software and make contain errors or omissions. [facility] History Medical History: Reports:: Asthma, Chronic Obstructive Pulmonary Disease (COPD), Coronary Artery Disease, Diabetes Mellitus Type 2, Hyperlipidemia, Hypertension, Lung Disease (copd) Denies:: Cancer, Diabetes Mellitus Type 1, Internal Pacemaker, MRSA, Seizures *Have you ever received a pneumonia vaccine?: Yes *Have you received a flu vaccine this season?: Yes Other Medical History: Reports: Arthritis, Cataracts, Fibromyalgia, Hypothyroidism, Thyroid Disease, Other. Denies: Blood Transfusion Reaction Laterality Cases: Left: Arthroscopy Knee, Right: Myringotomy (Ear Tubes), Bilateral: Carpal Tunnel Release, Mastectomy Other Surgeries: Yes: EGD, Hysterectomy-Total, Other. No: Pacemaker Amputation: No Fractures: No - *Social History Smoking Status: Current every day smoker Tobacco Type: cigarettes # Packs/Day (cigarettes): 1 #Yrs smoked (if former smoker): 60 Alcohol Intake: never Alcohol Intake Frequency:: other Substance Use Type: denies use *Occupational Status:: disabled Housing: house Household Members: other *Travel in the last 8 weeks: None Family Hx:: No significant family h
== END ==
PROVIDERS: Visit Provider Student in an Organized Health Care Education/Training Program
DX: M50.10 Cervical disc disorder with radiculopathy, unspecified cervical region (principal); M47.896 Other spondylosis, lumbar region; M54.06 Panniculitis affecting regions of neck and back, lumbar region
CPT/HCPCS: 99212; G0463

== ENCOUNTER 2021-11-05 09:33 | Day surgery (SDC) | payer MEDICARE, OTHER, SELFPAY ==
[2021-11-05 09:46] VITALS: BP 162/78; PULSE 71; RESP 20; TEMP 36.6; O2SAT 93; BMI 44.9
--- NOTE | 2021-11-05 10:01 | P.PCN_ITS ---
- Procedure Date: 11/05/21 Time: 10:02 Anesthesiologist:: Petr Barahona CRNA Complications:: None Pre-procedure Diagnosis:: Left cervical facet arthropathy. Post-procedure Diagnosis:: Same Indications for Procedure:: This patient is a pleasant 70-year-old female that is responded very well to the left side medial branch block cervical C5-6, C6-7. She presents to our clinic today for left-sided cervical C5-6, C6-7 facet radiofrequency ablation. Procedure Details:: Details of the procedure were explained to the patient. The patient taken the procedure room placed in the prone position. The area over the cervical spine was cleansed using chlorhexidine as a cleansing solution. Using fluoroscopy guidance markers were placed over the C5-6 and C6-7 left facet joints. The skin and subcutaneous tissue was anesthetized using 1% lidocaine and 25-gauge needle. At this time using a 3 inch radiofrequency ablation needle the medial branch nerve was accessed using fluoroscopy at the left C5-6 and C6-7 level. Needle was confirmed using 0.5 cc of contrast dye at each level. After negative sensory and motor stimulation 90 seconds of ablation at 80 ?C was obtained. [place] were removed. Band-Aid applied. Patient tolerated procedure without difficulty. There were no complications. Plan and Disposition:: Patient was discharged without incident.
[2021-11-05 10:09] VITALS: BP 128/67; PULSE 69; RESP 18; O2SAT 95
[2021-11-05 10:12] VITALS: BP 122/70; PULSE 70; RESP 18; O2SAT 95
[2021-11-05 10:24] VITALS: BP 139/73; PULSE 70; RESP 20; O2SAT 94
== END 2021-11-05 10:25 | disposition home or self-care (01) ==
LOC: SC.PAINP 09:34
PROVIDERS: PCP Family Medicine; Visit Provider Nurse Anesthetist, Certified Registered
DX: M47.812 Spondylosis without myelopathy or radiculopathy, cervical region (principal); M54.02 Panniculitis affecting regions of neck and back, cervical region; J44.9 Chronic obstructive pulmonary disease, unspecified; E11.9 Type 2 diabetes mellitus without complications; E78.5 Hyperlipidemia, unspecified; I10 Essential (primary) hypertension; Z72.0 Tobacco use; Z87.19 Personal history of other diseases of the digestive system; Z88.6 Allergy status to analgesic agent; Z88.1 Allergy status to other antibiotic agents
CPT/HCPCS: 64633; 64634; J1040

== ENCOUNTER → 2021-11-30 10:20 | Outpatient (POV) | payer MEDICARE, OTHER, SELFPAY ==
[2021-11-30 10:34] VITALS: BP 161/89; PULSE 78; RESP 19; TEMP 36; O2SAT 97; BMI 44.9
--- NOTE | 2021-11-30 11:15 | HMH.PAINSOAP ---
[facility] Pain Management SOAP Note Subjective:: Patient is a pleasant 72-year-old female who presents today for follow-up after a left cervical RFA at C5-C6 and C6-C7 on November 05, 2021. We did her right cervical RFA on September 24, 2021 at the same levels. After her procedure, patient states that she has been having left-sided muscular pain on her left posterior neck that radiates down to her left shoulder. She is having issues with turning her head. She is tender to palpation around the left cervical paraspinous and left upper trapezius. She did well with the right cervical RFA and no complaints on that side. Today, she is also complaining of worsening low back pain. She previously had a minimally invasive lumbar decompression procedure that significantly helped her radicular pains. Denies any recent falls or traumas. Rates her pain today as 9 out of 10. For pain, patient is taking oxycodone 5 mg twice a day, diazepam 10 mg twice a day, gabapentin 800 mg 4 times a day. Patient was taking OxyContin 40 mg twice a day but her insurance has stopped covering this medication. Because of this, Dr. Walters increased her gabapentin. [facility] [phone] with an active morphine equivalent of 15. Review of Systems: General: No recent weight changes, no fever, no sleep disturbances Respiratory: No cough, no shortness of air, no recurring pulmonary infections Cardiovascular/peripheral vascular: No chest pain, no palpitations, no edema, no shortness of breath Gastrointestinal: No new onset incontinence, normal bowel movements reported Genitourinary: No new onset incontinence Musculoskeletal: Neck pain, low back pain Psychiatric: [Normal mood/affect] Neurological: [Denies weakness in extremities], [denies balance issues] Objective:: Physical Exam: General: Alert and oriented x3, no acute distress, pleasant and cooperative Lungs: Respirations even and unlabored, symmetrical chest expansion Eyes: PERRL Musculoskeletal: Flexion and extension of cervical and lumbar [spine] somewhat guarded secondary to pain, [antalgic gait noted]; tender to palpation around the left cervical paraspinous and left upper trapezius Neurological: Speech clear, no gross sensory deficit Assessment:: Degenerative disc disease of the cervical and lumbar spine with cervical and lumbar radiculopathy symptoms, cervical facet arthropathy, cervical spondylosis Myofascial pain Plan:: Patient has been having worsening low back pain in the last several months. She previously had a minimally invasive lumbar decompression but has done well. She says that the mild procedure helped her radicular pains. We will schedule the patient for a lumbar epidural steroid injection at L4-L5. Risk and benefits of this procedure have been discussed with the patient. Patient would like to proceed with this procedure. Patient is also complaining of pain around her left posterior neck that radiates down to her left shoulder. She started having this pain after the left cervical RFA. On exam, patient is tender to palpation around the left cervical paraspinous and left upper trapezius. We will schedule the patient for a trigger point injections in these areas. Patient has been instructed to contact the clinic with any concerns before the next appointment. Dr. Zapata has reviewed this note and agrees with this plan of care. This note was dictated using voice recognition software and make contain errors or omissions. [facility] History Medical History: Reports:: Asthma, Chronic Obstructive Pulmonary Disease (COPD), Coronary Artery Disease, Diabetes Mellitus Type 2, Hyperlipidemia, Hypertension, Lung Disease (copd) Denies:: Cancer, Diabetes Mellitus Type 1, Internal Pacemaker, MRSA, Seizures *Have you ever received a pneumonia vaccine?: Yes *Have you received a flu vaccine this season?: Yes Other Medical History: Reports: Arthritis, Cataracts, Fibromyalgia, Hypothyroidism, Thyroid Disease, Other. Denies: Blood Transfusion React
== END ==
PROVIDERS: Visit Provider Student in an Organized Health Care Education/Training Program
DX: M51.16 Intervertebral disc disorders with radiculopathy, lumbar region (principal); M50.10 Cervical disc disorder with radiculopathy, unspecified cervical region; M47.22 Other spondylosis with radiculopathy, cervical region
CPT/HCPCS: 99212; G0463

== ENCOUNTER 2021-12-10 11:03 | Day surgery (SDC) | payer MEDICARE, OTHER, SELFPAY ==
[2021-12-10 11:26] VITALS: BP 117/69; PULSE 72; RESP 22; TEMP 36.6; O2SAT 92; BMI 31.4
[2021-12-10 11:39] VITALS: BP 97/73; PULSE 71; RESP 20
--- NOTE | 2021-12-10 11:44 | HMH.PMPROC ---
- Procedure Date: 12/10/21 Time: 11:44 Anesthesiologist:: Petr Barahona CRNA Complications:: None Pre-procedure Diagnosis:: Degenerative disc disease lumbar spine multilevels. Lumbar radiculopathy symptoms. Post-procedure Diagnosis:: Same Indications for Procedure:: Very pleasant 72-year-old female that is no stranger to our injection clinic. Today she presents for lumbar epidural steroid injection at the L4-5 level. Patient describes her low back pain is constant, dull, aching. She is also complaining of bilateral hip and leg radicular symptoms. She rates her pain 9/10. Procedure Details:: Procedure: Lumbar epidural steroid injection under fluoroscopy Informed consent was obtained and the risks and benefits of the procedure were explained to the patient. The patient was taken to the procedure room and noninvasive monitors placed, including noninvasive blood pressure cuff and pulse oximeter. The back was viewed using C-arm Fluoroscopy and prepped using Betadine as a cleansing solution and the L4-L5 interspace was palpated. Skin and subcutaneous tissues were anesthetized using lidocaine 1.5% and a 25-gauge needle. After this, an 18-gauge Touhy epidural needle was placed into the L4-L5 interspace and advanced using fluoroscopic guidance and loss of resistance to air until the epidural space was encountered. After confirmation of needle placement in the epidural space, with dye, a solution containing lidocaine 1.5%, 4 mL and Depo-Medrol 80 mg were incrementally injected into the lumbar epidural space. The patient tolerated the procedure well with no complications. The patient was observed in the Pain Clinic and then discharged home neurologically intact. Plan and Disposition:: Patient was discharged without incident.
[2021-12-10 11:52] VITALS: BP 118/57; PULSE 71; RESP 20; O2SAT 96
== END 2021-12-10 11:53 | disposition home or self-care (01) ==
LOC: SC.PAINP 11:04
PROVIDERS: PCP Family Medicine; Visit Provider Nurse Anesthetist, Certified Registered
DX: M51.16 Intervertebral disc disorders with radiculopathy, lumbar region (principal); M19.90 Unspecified osteoarthritis, unspecified site; Z72.0 Tobacco use
CPT/HCPCS: 62323; J1040

== ENCOUNTER 2021-12-24 10:48 | Day surgery (SDC) | payer MEDICARE, OTHER, SELFPAY ==
[2021-12-24 11:15] VITALS: BP 104/56; PULSE 67; RESP 18; TEMP 36.5; O2SAT 93; BMI 44.9
[2021-12-24 12:09] VITALS: BP 132/74; PULSE 74; RESP 18; O2SAT 98
[2021-12-24 12:11] VITALS: BP 120/67; PULSE 64; PULSE 72; RESP 18; O2SAT 94; O2SAT 98
--- NOTE | 2021-12-24 12:24 | HMH.PMPROC ---
- Procedure Date: 12/24/21 Time: 12:24 Anesthesiologist:: Brad Zapata MD Complications:: None Pre-procedure Diagnosis:: Myofascial pain left neck and upper trapezius area Post-procedure Diagnosis:: Same Indications for Procedure:: Patient is a pleasant 71-year-old white female who we have been treating for neck pain with degenerative disc disease of the cervical spine cervical radiculopathy symptoms. Patient did well after RFA to the medial branches/facet joints in the cervical region. She has some residual myofascial pain over the left upper trapezius and cervical paraspinous muscles. We will do trigger point injections today to the left upper trapezius muscle to see if this helps with pain symptoms. Procedure Details:: Trigger point injections x4 to left upper trapezius and cervical paraspinous muscles Form consent was obtained the risk and benefits of the procedure were explained to the patient. Patient was taken the procedure room the left neck and upper trapezius area was prepped using ChloraPrep. Trigger points were identified. Each of these trigger points were then injected with bupivacaine 0.25% 3 mL and Depo-Medrol 10 mg. A total of 40 mg was used to inject 4 trigger points in this area. Patient tolerated the procedure well with no complications. Plan and Disposition:: We will follow-up with her in 2 weeks. Will reevaluate her symptoms at that time.
== END 2021-12-24 12:12 | disposition home or self-care (01) ==
LOC: SC.PAINP 10:49
PROVIDERS: PCP Family Medicine; Visit Provider Anesthesiology
DX: M79.12 Myalgia of auxiliary muscles, head and neck (principal)
CPT/HCPCS: 20552; J1030

== ENCOUNTER → 2022-01-08 08:40 | Outpatient (CLI) | payer MEDICARE, OTHER, SELFPAY ==
[2022-01-07 18:36] LABS: Chloride 105 mmol/L (98-107); Potassium 4.5 mmoL/L (3.5-5.1); Sodium 136 mmol/L (136-145)
[2022-01-07 18:37] LABS: Blood Urea Nitrogen 19 mg/dl (7-17); Estimated Glomerular Filt Rate 71 ml/min (>60); GFR (African American) 85 ML/MIN (>60)
[2022-01-07 18:38] LABS: Alanine Aminotransferase 32 U/L (12-78); Aspartate Amino Transferase 48 U/L (14-36)
[2022-01-07 18:39] LABS: Albumin Level 4.1 g/dl (3.5-5.0); Albumin/Globulin Ratio 1.4 (1.1-1.8); Alkaline Phosphatase 58 U/L (38-126); Anion Gap 14.5 mEq/L (5-15); Bilirubin,Total 0.8 mg/dl (0.2-1.3); Carbon Dioxide 21 mmol/L (22.0-30.0); Glucose 183 mg/dl (74-100); Total Protein,Serum 7.1 g/dl (6.3-8.2)
== END ==
PROVIDERS: PCP Family Medicine; Visit Provider Family Medicine
DX: E11.9 Type 2 diabetes mellitus without complications (principal); Z79.4 Long term (current) use of insulin
CPT/HCPCS: 80053

== ENCOUNTER → 2022-01-13 11:12 | Outpatient (POV) | payer MEDICARE, OTHER, SELFPAY ==
[2022-01-13 11:18] VITALS: BP 151/85; PULSE 81; RESP 20; O2SAT 92; BMI 44.0
--- NOTE | 2022-01-13 13:22 | HMH.PAINSOAP ---
[facility] Pain Management SOAP Note Subjective:: Patient is a pleasant 71-year-old female who presents today for follow-up. Patient is currently for degenerative disc disease of the cervical and lumbar spine with cervical and lumbar radiculopathy symptoms, lumbar facet arthropathy, lumbar spondylosis, sacroiliitis, myofascial pain. When we last saw this patient, we had done trigger point injections around her left upper trapezius and cervical paraspinous muscles. She had significant relief from this injection of about 60 to 70%. She is still having some trouble with cervical rotation. We did a cervical RFA at C5-C6 and C6-C7 in September and October. She continues to have relief from these ablations. Patient may need repeat ablation in January. Today, patient is complaining of pain more around her low back. We previously have done a lumbar epidural steroid injection and SI injections that provided some relief. In the past, we also have done lumbar RFA bilaterally at L3-L4, L4-L5, and L5-S1. Patient got significant relief of 80 to 90% for more than 3 months after each ablation. Patient is wanting to schedule a repeat lumbar RFA today. Rates her pain today as 8 out of 10. For pain, she is taking oxycodone 5 mg twice a day, diazepam 10 mg twice a day, gabapentin 800 mg 4 times a day that are prescribed by her primary care provider. Walt [phone] with an active morbid equivalent of 0. Review of Systems: General: No recent weight changes, no fever, no sleep disturbances Respiratory: No cough, no shortness of air, no recurring pulmonary infections Cardiovascular/peripheral vascular: No chest pain, no palpitations, no edema, no shortness of breath Gastrointestinal: No new onset incontinence, normal bowel movements reported Genitourinary: No new onset incontinence Musculoskeletal: Neck pain, low back pain, hip pain Psychiatric: [Normal mood/affect] Neurological: [Denies weakness in extremities], [denies balance issues] Objective:: Physical Exam: General: Alert and oriented x3, no acute distress, pleasant and cooperative Lungs: Respirations even and unlabored, symmetrical chest expansion Eyes: PERRL Musculoskeletal: Flexion and extension of lumbar and cervical [spine] somewhat guarded secondary to pain, [antalgic gait noted]; positive Kemps test, tender to palpation around the lumbar facets. Patient also has tenderness to palpation around bilateral SI joints. Neurological: Speech clear, no gross sensory deficit Assessment:: Degenerative disc disease of the cervical and lumbar spine with cervical and lumbar radiculopathy symptoms, lumbar facet arthropathy, lumbar spondylosis, sacroiliitis, myofascial pain Plan:: We have been managing this patient with injective therapy and ablation. She previously had a lumbar RFA at bilateral L3-L4, L4-L5, L5-S1 that provided significant relief. This was more than a year ago. She is complaining of worsening low back pain especially with lumbar flexion, extension and rotation. She has positive Kemps test and tender to palpation around the lumbar facets. We will schedule the patient for lumbar RFA bilaterally at L4-L5 and L5-S1. Patient is not on any blood thinners Patient has been instructed to contact the clinic with any concerns before the next appointment. Dr. Zapata has reviewed this note and agrees with this plan of care. This note was dictated using voice recognition software and make contain errors or omissions. [facility] History Medical History: Reports:: Asthma, Chronic Obstructive Pulmonary Disease (COPD), Coronary Artery Disease, Diabetes Mellitus Type 2, Hyperlipidemia, Hypertension, Lung Disease Denies:: Cancer, Diabetes Mellitus Type 1, Internal Pacemaker, MRSA, Seizures *Have you ever received a pneumonia vaccine?: Yes *Have you received a flu vaccine this season?: Yes Other Medical History: Reports: Arthritis, Cataracts, Fibromyalgia, Hypothyroidism, Thyroid Disease, Other. Denies: Blood Transfusion Reaction La
== END ==
PROVIDERS: Visit Provider Student in an Organized Health Care Education/Training Program
DX: M51.16 Intervertebral disc disorders with radiculopathy, lumbar region (principal); M47.26 Other spondylosis with radiculopathy, lumbar region; M79.18 Myalgia, other site; M50.30 Other cervical disc degeneration, unspecified cervical region
CPT/HCPCS: 99212; G0463

== ENCOUNTER 2022-01-18 07:53 | Day surgery (SDC) | payer MEDICARE, OTHER, SELFPAY ==
[2022-01-18 08:07] VITALS: BP 120/71; PULSE 78; RESP 18; TEMP 36.4; O2SAT 96; BMI 44.0
[2022-01-18 08:35] VITALS: BP 118/72; PULSE 69; RESP 20
[2022-01-18 08:52] VITALS: BP 90/55; PULSE 68; RESP 20; O2SAT 96
--- NOTE | 2022-01-18 08:56 | P.PCN_ITS ---
- Procedure Date: 01/18/22 Time: 08:56 Anesthesiologist:: Petr Barahona CRNA Complications:: None Pre-procedure Diagnosis:: Degenerative disc disease lumbar spine multilevels. Lumbar spondylosis. Multilevel lumbar facet arthropathy. Lumbar radiculopathy. Post-procedure Diagnosis:: Same Indications for Procedure:: Very pleasant 71-year-old female who lives with chronic low back pain. She describes the back pain as constant, dull, aching. She has difficulty with flexion and extension. She rates the pain 8/10. Patient is no stranger to our injection clinic. She has had lumbar MBB's in the past as well as lumbar RFA's. She presents today for lumbar RFA L4-5 and L5-S1 level bilaterally. Procedure Details:: Lumbar RFA None Pre-procedure Diagnosis: Degenerative disc disease of lumbar spine with lumbar spondylosis and facet arthropathy Post-procedure Diagnosis: Same Indications for Procedure: Patient is a pleasant 67-year-old white female who we are treating for low back pain with lumbar spondylosis and facet arthropathy. She is done well with medial branch blocks with 80% relief of her pain symptoms. She presents for radiofrequency ablation to the facet joint/medial branches of L4-5 and L5-S1 today. She has already had the right side done and is doing very well. She presents for the left side today. Procedure Details: Lumbar RFA Informed consent was obtained and the risk and benefits of the procedure was explained to the patient. Patient was placed prone on the procedure table. The patient was prepped and draped in sterile fashion. C-arm fluoroscopy was used to view the lumbar spine. The skin and subcutaneous tissues were anesthetized using lidocaine. I placed 20-gauge RF needles into the facet joints of L4-L5 and L5-S1 on the left side. We underwent sensory stimulation. There is good sensory stimulation at 0.8 V. We underwent motor stimulation. There is no motor stimulation at 2 V. We then anesthetized these levels with lidocaine and Depo- Medrol. I used a total of 40 mg Depo-Medrol for all 3 levels. I then burned all 3 levels of L4-5 and L5-S1 on the left side for 4 minutes at 80 ?C. Patient tolerated the procedure well with no complication. Plan and Disposition:: We will follow-up with this patient in 2 weeks. We will reevaluate her symptoms at that time. Plan and Disposition:: Patient was discharged without incident.
== END 2022-01-18 08:53 | disposition home or self-care (01) ==
LOC: SC.PAINP 07:55
PROVIDERS: PCP Family Medicine; Visit Provider Nurse Anesthetist, Certified Registered
DX: M54.06 Panniculitis affecting regions of neck and back, lumbar region (principal); M51.16 Intervertebral disc disorders with radiculopathy, lumbar region; M46.96 Unspecified inflammatory spondylopathy, lumbar region; M48.062 Spinal stenosis, lumbar region with neurogenic claudication; M46.1 Sacroiliitis, not elsewhere classified; M79.7 Fibromyalgia; M50.10 Cervical disc disorder with radiculopathy, unspecified cervical region; M47.896 Other spondylosis, lumbar region
CPT/HCPCS: 64635; 64636; J1040

== ENCOUNTER → 2022-02-07 10:06 | Outpatient (POV) | payer MEDICARE, OTHER, SELFPAY ==
[2022-02-07 12:01] VITALS: BP 102/78; PULSE 75; RESP 20; TEMP 36.4; O2SAT 96; BMI 43.9
--- NOTE | 2022-02-07 12:54 | HMH.PAINSOAP ---
[facility] Pain Management SOAP Note Subjective:: Patient is a pleasant 71-year-old female that presents today for follow-up of lumbar RFA of L4-5 and L5-S1 bilaterally on 01/18/2022. We are currently treating the patient for degenerative disc disease of lumbar spine multilevel's with lumbar radiculopathy symptoms and lumbar spondylosis, multilevel lumbar facet arthropathy. Patient states that she has had significant improvement from this procedure. She states a 40 to 50% improvement and states she feels like it is still helping. Patient rates her pain today an 8 out of 10. She states this pain is primarily in her low back and legs. She states her legs just feel heavy and hurt that she cannot stand for long periods of time. Patient also states that she has bilateral shoulder and neck pain. Denies any trauma or injury to these areas. She states that this is the same pain she has been experiencing. She has had injective therapy in the past. We have done trigger point injections around her left upper trapezius and cervical paraspinous muscles. She did get 60 to 70% improvement with this injection. We have also done a cervical RFA at C5-6 and C6-7 in September and October. She states that this did give some improvement. Patient has also had epidural injections of her lumbar spine and a lumbar RFA bilaterally at L3-4, L4-5 and L5-S1 with significant improvement that lasted roughly 3 months. Patient rated it at a 90% improvement. She is currently being managed with gabapentin 800 mg 4 times a day and oxycodone 5 mg 3 times a day. Both these prescriptions are written by Dr. Walters as well as diazepam 10 mg. She denies any side effects from these medications. She states these medications do adequately manage her pain. Walt is [phone]. Has been reviewed. Review of Systems: General: No recent weight changes, no fever, no sleep disturbances Respiratory: No cough, no shortness of air, no recurring pulmonary infections Cardiovascular/peripheral vascular: No chest pain, no palpitations, no edema, no shortness of breath Gastrointestinal: No new onset incontinence, normal bowel movements reported Genitourinary: No new onset incontinence Musculoskeletal: Low back pain, bilateral leg pain, shoulder pain Psychiatric: [Normal mood/affect] Neurological: [Denies weakness in extremities], [denies balance issues] Objective:: Physical Exam: General: Alert and oriented x3, no acute distress, pleasant and cooperative Lungs: Respirations even and unlabored, symmetrical chest expansion Eyes: PERRL Musculoskeletal: Flexion and extension of cervical, lumbar [spine] somewhat guarded secondary to pain, [antalgic gait noted]. Extreme point tenderness along cervical paraspinous and trapezius bilaterally. Neurological: Speech clear, no gross sensory deficit Assessment:: Degenerative disc disease of lumbar spine multilevels with lumbar radiculopathy symptoms, lumbar spondylosis, multilevel lumbar facet arthropathy, myofascial pain Plan:: Patient is having worsening pain along her bilateral neck and shoulders. Patient had extreme point tenderness along her bilateral cervical paraspinous muscles and trapezius muscles. I have discussed with the patient regarding having trigger point injections at the sites. Risk and benefits were discussed with the patient. The patient would like to proceed forward with these injections. I will also prescribe the patient a compounding cream at today's visit. We will schedule the patient for a bilateral cervical paraspinous and trapezius trigger point injections at today's visit. Patient has been instructed to contact the clinic with any concerns before the next appointment. Dr. Zapata has reviewed this note and agrees with this plan of care. This note was dictated using voice recognition software and make contain errors or omissions. [facility] History I have reviewed the patient's past medical history: Yes Medical History: Reports:: Asthma, Chronic Ob
== END ==
PROVIDERS: PCP Family Medicine; Visit Provider Nurse Practitioner Family
DX: M51.16 Intervertebral disc disorders with radiculopathy, lumbar region (principal); M47.26 Other spondylosis with radiculopathy, lumbar region; M79.18 Myalgia, other site
CPT/HCPCS: 99212; G0463

== ENCOUNTER 2022-02-11 09:42 | Day surgery (SDC) | payer MEDICARE, OTHER, SELFPAY ==
[2022-02-11 09:52] VITALS: BP 119/68; PULSE 72; RESP 20; TEMP 36.3; O2SAT 96; BMI 44.0
[2022-02-11 10:04] VITALS: BP 118/64; PULSE 73; RESP 18; O2SAT 98
--- NOTE | 2022-02-11 11:00 | HMH.PMPROC ---
- Procedure Date: 02/11/22 Time: 11:00 Anesthesiologist:: Petr Barahona CRNA Complications:: None Pre-procedure Diagnosis:: Myofascial pain bilateral posterior cervical spinous as well as bilateral trapezius muscles. Post-procedure Diagnosis:: Same Indications for Procedure:: Patient is a pleasant 71-year-old female that comes to our clinic today for trigger point injections bilateral posterior cervical muscles as well as bilateral trapezius muscles. Patient has had this injection as well as other cervical spine injections in the past with some relief. Patient has extreme point tenderness over the posterior's cervical spinous muscles as well as bilateral trapezius muscles. She rates the pain 8/10. Procedure Details:: Details of the procedure were explained to the patient. The patient taken the procedure room placed in sitting position. The area over the posterior cervical spine as well as bilateral trapezius muscles was cleansed using chlorhexidine as a cleansing solution. A 25-gauge needle 2 separate areas on the bilateral posterior spinous muscles was injected after negative aspiration with 2 cc at each position of a solution containing 0.25% Marcaine +1% lidocaine and 80 mg of Depo-Medrol. The same injection was given at 2 separate locations on the bilateral trapezius muscles. Patient tolerated procedure without difficulty. There are no complications. Plan and Disposition:: Patient was discharged without incident.
== END 2022-02-11 10:05 | disposition home or self-care (01) ==
LOC: SC.PAINP 09:43
PROVIDERS: PCP Family Medicine; Visit Provider Nurse Anesthetist, Certified Registered
DX: M79.18 Myalgia, other site (principal)
CPT/HCPCS: 20552; J1040

== ENCOUNTER → 2022-02-23 10:50 | Outpatient (POV) | payer MEDICARE, OTHER, SELFPAY ==
[2022-02-23 11:29] VITALS: BP 137/64; PULSE 70; RESP 18; TEMP 36.4; O2SAT 95; BMI 44.0
--- NOTE | 2022-02-23 13:00 | EXP.PAIN.SOA ---
[facility] Pain Management SOAP Note Subjective:: Patient is a pleasant 71-year-old female who presents today for follow-up of trigger point injections of bilateral posterior cervical paraspinous and trapezius muscles on 02/11/2022. We are currently treating the patient for degenerative disc disease of cervical and lumbar spine multilevels with cervical and lumbar radiculopathy symptoms, lumbar spondylosis, multilevel lumbar facet arthropathy, myofascial pain. Patient states that she has had significant improvement along her right neck and shoulder from these injections. Patient states she has at least 70% improvement on that side. Today the patient rates her pain a 5 out of 10 and states her pain is primarily on her left shoulder that radiates into her left arm. She describes this as a aching throbbing sensation that is worse with increased activity. Patient denies any new trauma or injury to the site. She denies any change in the location or type of pain she experiences. We have done injections in the past that provided significant improvement including trigger point injections, cervical RFA, epidural injections and lumbar RFA. She is currently managed with gabapentin 800 mg 4 times a day by Dr. Walters and oxycodone 5 mg 3 times a day as well as diazepam 10 mg 4 times a day by Dr. Walters. Patient denies any side effects from these medications. She states these medications do adequately manage her pain. Patient has been using her compounding cream that does provide some relief however not long-term. Her Walt is [phone]. It has been reviewed and appropriate. Review of Systems: General: No recent weight changes, no fever, no sleep disturbances Respiratory: No cough, no shortness of air, no recurring pulmonary infections Cardiovascular/peripheral vascular: No chest pain, no palpitations, no edema, no shortness of breath Gastrointestinal: No new onset incontinence, normal bowel movements reported Genitourinary: No new onset incontinence Musculoskeletal: Neck pain, left shoulder pain, left arm pain Psychiatric: [Normal mood/affect] Neurological: [Denies weakness in extremities], [denies balance issues] Objective:: Physical Exam: General: Alert and oriented x3, no acute distress, pleasant and cooperative Lungs: Respirations even and unlabored, symmetrical chest expansion Eyes: PERRL Musculoskeletal: Flexion and extension of cervical and lumbar [spine] somewhat guarded secondary to pain, [antalgic gait noted] Neurological: Speech clear, no gross sensory deficit Assessment:: Degenerative disc disease of cervical and lumbar spine multilevels with cervical and lumbar radiculopathy symptoms, lumbar spondylosis, multilevel lumbar facet arthropathy, myofascial pain Plan:: Patient continues to have significant pain along her left neck into her shoulder and radiating down her left arm. I have discussed with the patient regarding a cervical epidural steroid injection. Risk and benefits were discussed with the patient. She would like to proceed forward with this injection. She is not currently on any blood thinners. Patient is a diabetic and has been counseled to continue to take her medication as prescribed including on her injection day. We will schedule the patient for a ARLIN at C6-C7. Patient has been instructed to contact the clinic with any concerns before the next appointment. Dr. Zapata has reviewed this note and agrees with this plan of care. This note was dictated using voice recognition software and make contain errors or omissions. PFSH PFS Social History Smoking Status: Current every day smoker tobacco type: cigarettes packs per day: 1 second hand exposure: Yes alcohol intake: never counseling provided: none substance use type: denies use current occupational status: retired household members: other housing: house current occupational exposures/hazards: No caffeine: Yes
== END ==
PROVIDERS: PCP Family Medicine; Visit Provider Nurse Practitioner Family
DX: M50.123 Cervical disc disorder at C6-C7 level with radiculopathy (principal); M51.16 Intervertebral disc disorders with radiculopathy, lumbar region; M47.26 Other spondylosis with radiculopathy, lumbar region; M79.18 Myalgia, other site
CPT/HCPCS: 99212; G0463

== ENCOUNTER → 2022-04-19 11:18 | Outpatient (CLI) | payer MEDICARE, OTHER, SELFPAY ==
--- NOTE | 2022-04-19 11:35 | XR_ITS ---
FINAL REPORT CLINICAL HISTORY: COPD exacerbation, left shoulder discomfort COMPARISON: 12/03/2016 FINDINGS: Two views of the chest were obtained. The heart size and pulmonary vascularity are within normal limits. The mediastinum is normal. No acute pulmonary abnormality is identified. There is no pneumothorax. The bony thorax is intact. IMPRESSION: No active cardiopulmonary disease. Reviewed, Interpreted and Dictated by Timmy Pagan III, MD Transcribed by Annette Frances Authenticated and [facility]
--- NOTE | 2022-04-19 11:38 | ECG_ITS ---
APPROVED REPORT Exam: Resting ECG HR:70 bpm ECG Measurements Heart Rate 70 AXES WV 174 P 66 QRSd 87 QRS 68 QT 403 T 86 QTc 423 Conclusion SINUS RHYTHM SEPTAL MYOCARDIAL INFARCTION , PROBABLY OLD [40+ ms Q WAVE IN V1/V2] ABNORMAL ECG UNCONFIRMED REPORT Electronically signed by : Eriberto Leonard MD 04/21/2022 21:12:38
[2022-04-19 18:50] LABS: Basophils # 0.1 K/mm3 (0-0.2); Basophils % 0.8 % (0.1-2.0); Eosinophils # 0.3 K/mm3 (0.0-0.4); Eosinophils % 3.7 % (0.1-12.0); Hematocrit 40.6 % (37.0-47.0); Lymphocytes # 2.6 K/mm3 (0.7-4.5); Lymphocytes % 30.6 % (10-50); Mean Corpuscular HGB Conc 31.9 g/dL (31.8-35.4); Mean Corpuscular Hemoglobin 29.7 pg (27.0-31.2); Mean Corpuscular Volume 92.9 fl (81-99); Mean Platelet Volume 10.8 fl (7.4-10.4); Monocytes # 0.6 K/mm3 (0.1-1.0); Monocytes % 6.6 % (1.7-9.3); Neutrophils # 4.9 K/mm3 (1.8-7.8); Neutrophils % 58.3 % (37.0-80.0); Platelet Count 213 K/mm3 (142-424); Red Blood Count 4.37 M/mm3 (4.20-5.40); Red Cell Distribution Width 14.8 % (11.5-17.5); White Blood Count 8.4 K/mm3 (4.8-10.8)
== END ==
PROVIDERS: PCP Nurse Practitioner; Visit Provider Nurse Practitioner
DX: J44.1 Chronic obstructive pulmonary disease with (acute) exacerbation (principal)
CPT/HCPCS: 71046; 85025; 93005

== ENCOUNTER → 2022-04-26 14:00 | Outpatient (CLI) | payer MEDICARE, OTHER, SELFPAY ==
[2022-04-26 19:41] LABS: Basophils # 0.1 K/mm3 (0-0.2); Basophils % 0.5 % (0.1-2.0); Eosinophils # 0.2 K/mm3 (0.0-0.4); Eosinophils % 1.5 % (0.1-12.0); Hemoglobin 12.9 g/dL (12.2-16.2); Lymphocytes % 26.6 % (10-50); Mean Corpuscular HGB Conc 31.5 g/dL (31.8-35.4); Mean Corpuscular Hemoglobin 29.9 pg (27.0-31.2); Mean Corpuscular Volume 95.1 fl (81-99); Mean Platelet Volume 10.6 fl (7.4-10.4); Monocytes # 0.8 K/mm3 (0.1-1.0); Monocytes % 7.2 % (1.7-9.3); Neutrophils # 7.1 K/mm3 (1.8-7.8); Neutrophils % 64.2 % (37.0-80.0); Platelet Count 217 K/mm3 (142-424); Red Blood Count 4.31 M/mm3 (4.20-5.40); Red Cell Distribution Width 14.3 % (11.5-17.5); White Blood Count 11.1 K/mm3 (4.8-10.8)
== END ==
PROVIDERS: PCP Nurse Practitioner; Visit Provider Nurse Practitioner
DX: R05.9 Cough, unspecified (principal)
CPT/HCPCS: 85025

== ENCOUNTER → 2022-06-16 07:34 | Outpatient (CLI) | payer MEDICARE, OTHER, SELFPAY ==
--- NOTE | 2022-06-16 07:34 | CT_ITS ---
FINAL REPORT TECHNIQUE: Thin section axial CT images of the facial bones and sinuses were obtained without contrast. Coronal reformatted images were also obtained.This study was performed with techniques to keep radiation doses as low as reasonably achievable, (ALARA). Individualized dose reduction techniques using automated exposure control or adjustment of mA and/or kV according to the patient''''s size were employed. CLINICAL HISTORY: chronic rhinitis, hx mastoiditis FINDINGS: There is moderate to severe mucosal thickening of the maxillary sinuses, the left sphenoid sinus in the right frontal sinus. There is a opacification of several ethmoid air cells. There are small fluid levels in the right maxillary and right sphenoid sinus worrisome in for acute sinusitis. Mucosal thickening narrows the right maxillary sinus ostium. The left maxillary ostium is patent. There are bilateral clarice bullosa as a variant. There is mild rightward curvature of the nasal septum. There are postoperative changes from left mastoidectomy. IMPRESSION: Widespread sinusitis with acute right maxillary and right sphenoid sinusitis. Reviewed, Interpreted and Dictated by Timmy Pagan III, MD Transcribed by Giuliana Moreno Authenticated and [facility]
== END ==
PROVIDERS: PCP Family Medicine; Visit Provider Family Medicine
DX: J31.0 Chronic rhinitis (principal)
CPT/HCPCS: 70486

== ENCOUNTER → 2022-10-07 13:10 | Outpatient (CLI) | payer MEDICARE, OTHER, SELFPAY ==
[2022-10-07 13:17] LABS: Adenovirus F 40/41, stool Not Detected (NotDetected); Astrovirus Not Detected (NotDetected); Campylobacter Not Detected (NotDetected); Clostridium Difficile A/B, PCR Not Detected (NotDetected); Cryptosporidium Not Detected (NotDetected); Cyclospora Cayetanesis Not Detected (NotDetected); Entamoeba histolytica Not Detected (NotDetected); Enteroaggregative E coli Not Detected (NotDetected); Enteropathogenic E coli Not Detected (NotDetected); Enterotoxigenic E coli Not Detected (NotDetected); Giardia lamblia Not Detected (NotDetected); Norovirus Not Detected (NotDetected); Plesimonas Shigalloides, PCR Not Detected (NotDetected); Rotavirus A Not Detected (NotDetected); Salmonella, PCR Not Detected (NotDetected); Sapovirus Not Detected (NotDetected); Shiga-like toxin E coli Not Detected (NotDetected); Shigella Enterovasive E coli Not Detected (NotDetected); Vibrio Cholerae Not Detected (NotDetected); Vibrio, PCR Not Detected (NotDetected); Yersinia Entercolitica, PCR Not Detected (NotDetected)
[2022-10-07 18:36] LABS: Alanine Aminotransferase 17 U/L (12-78); Albumin Level 3.4 g/dl (3.5-5.0); Alkaline Phosphatase 78 U/L (38-126); Anion Gap 9.9 mEq/L (5-15); Aspartate Amino Transferase 32 U/L (14-36); Bilirubin,Indirect 0.5 mg/dL (0.0-0.9); Bilirubin,Total 0.5 mg/dl (0.2-1.3); Bilirubin,Unconjugated 0.4 mg/dL (0.0-1.1); Blood Urea Nitrogen 12 mg/dl (7-17); Calcium 8.9 mg/dl (8.4-10.2); Carbon Dioxide 20 mmol/L (22.0-30.0); Chloride 109 mmol/L (98-107); Estimated Glomerular Filt Rate 82 ml/min (>60); GFR (African American) 100 ML/MIN (>60); Glucose 85 mg/dl (74-100); Potassium 3.9 mmoL/L (3.5-5.1); Sodium 135 mmol/L (136-145); Total Protein,Serum 6.7 g/dl (6.3-8.2)
[2022-10-07 18:45] LABS: Basophils % 0.3 % (0.1-2.0); Eosinophils # 0.3 K/mm3 (0.0-0.4); Eosinophils % 2.4 % (0.1-12.0); Hematocrit 39.6 % (37.0-47.0); Hemoglobin 12.6 g/dL (12.2-16.2); Lymphocytes # 3.5 K/mm3 (0.7-4.5); Lymphocytes % 26.8 % (10-50); Mean Corpuscular HGB Conc 31.8 g/dL (31.8-35.4); Mean Corpuscular Hemoglobin 29.8 pg (27.0-31.2); Mean Corpuscular Volume 93.8 fl (81-99); Monocytes # 0.7 K/mm3 (0.1-1.0); Monocytes % 5.7 % (1.7-9.3); Neutrophils # 8.4 K/mm3 (1.8-7.8); Neutrophils % 64.8 % (37.0-80.0); Platelet Count 263 K/mm3 (142-424); Red Blood Count 4.22 M/mm3 (4.20-5.40); White Blood Count 12.9 K/mm3 (4.8-10.8)
== END ==
PROVIDERS: PCP Family Medicine; Visit Provider Family Medicine
DX: R19.7 Diarrhea, unspecified (principal); E11.9 Type 2 diabetes mellitus without complications; Z79.4 Long term (current) use of insulin; Z79.899 Other long term (current) drug therapy
CPT/HCPCS: 80048; 80076; 85025; 87506

== ENCOUNTER → 2022-10-18 07:52 | Outpatient (CLI) | payer MEDICARE, OTHER, SELFPAY ==
--- NOTE | 2022-10-18 07:53 | CT_ITS ---
FINAL REPORT CLINICAL HISTORY: weight loss, diarrhea, bloating COMPARISON: 12/03/2016 FINDINGS: Axial CT images of the abdomen and pelvis were obtained without intravenous contrast. Coronal reformatted images were also obtained.This study was performed with techniques to keep radiation doses as low as reasonably achievable (ALARA). Individualized dose reduction techniques using automated exposure control or adjustment of mA and/or kV according to the patient's size were employed. Abdomen: The lung bases are clear. The liver has a large volar contour consistent with cirrhosis. There is mild splenomegaly measuring 13 cm in length. There are multiple gallstones with mild wall thickening. Multiple pancreatic calcifications are consistent with chronic pancreatitis which appears worse as compared to the prior exam. Pancreatic ductal dilatation also appears worse. There is mild stranding adjacent to the pancreas which may represent superimposed mild acute pancreatitis. There is mild adrenal gland enlargement favored to represent adenomas. Multiple low-attenuation renal masses are seen. These are space for to represent cysts. There is left renal atrophy. A small amount of ascites is seen in the right perihepatic region. There is a moderate to large amount of retained stool in the colon. There is a 3.5 cm abdominal aortic aneurysm which is worse as compared to the prior exam. Pelvis: There is a small umbilical hernia containing fat. There is a 20 mm right common iliac and a 19 mm left common iliac artery aneurysm. The appendix appears normal. The patient is status post hysterectomy. IMPRESSION: Multiple gallstones with mild wall thickening. Cholecystitis is not excluded. Worsening findings of chronic pancreatitis with possible superimposed mild acute pancreatitis. Findings consistent with cirrhosis and portal hypertension. Worsening abdominal aortic aneurysm and bilateral common iliac artery aneurysms. Findings consistent with cirrhosis and portal hypertension. Reviewed, Interpreted and Dictated by Timmy Pagan III, MD Transcribed by Eneida Roldan Authenticated and [facility]
== END ==
PROVIDERS: PCP Family Medicine; Visit Provider Family Medicine
DX: R63.4 Abnormal weight loss (principal); R19.7 Diarrhea, unspecified
CPT/HCPCS: 74176

== ENCOUNTER 2023-01-13 12:02 | Emergency (ER) | payer MEDICARE, OTHER, SELFPAY ==
[2023-01-13 12:10] VITALS: BP 127/67; PULSE 68; RESP 19; TEMP 37.1; O2SAT 99; BMI 34.0
--- NOTE | 2023-01-13 12:17 | EXP.UTC ---
Discharge Plan Disposition Patient Disposition: Still a Patient Condition: Fair Prescriptions Prescriptions: New prednisone 50 mg tablet 50 mg PO DAILY 5 Days Qty: 5 0RF Rx Instructions: Please begin 1 day after ED visit No Action fenofibrate micronized 134 mg capsule 134 mg PO DAILY Qty: 90 Patient Comments: TAKE 1 CAPSULE BY MOUTH EVERY DAY azelastine-fluticasone 137-50 mcg/spray spray,non-aerosol 1 spray intranasal BID Qty: 23 0RF Rx Instructions: administer into each nostril nystatin 100,000 unit/mL suspension 4 ml PO QID 10 Days Qty: 160 1RF Rx Instructions: swish, gargle, and swallow metronidazole 500 mg tablet 500 mg PO TID Qty: 21 0RF desonide 0.05 % cream 1 applic topical BID Qty: 60 0RF cyclosporine [Restasis] 0.05 % dropperette 1 drp OPHTHALMIC Q12H ipratropium-albuterol 0.5 mg-3 mg(2.5 mg base)/3 mL solution for nebulization 3 ml inhalation QID Qty: 360 1RF Creon 36,000-114,000- 180,000 unit capsule,delayed release(DR/EC) 2 cap PO TID Qty: 360 2RF Rx Instructions: administer with meals and/or snacks diazepam 10 mg tablet 10 mg PO BID PRN (Reason: Anxiety) Qty: 60 2RF oxycodone 5 mg tablet 5 mg PO TID Qty: 90 0RF Rx Instructions: increase dose propranolol 60 mg tablet 60 mg PO .COMPLEX Qty: 240 4RF Rx Instructions: 60 mg PO AM AND PM; 30mg (1/2 TAB) PO NOON; lidocaine 5 % adhesive patch,medicated 1 patch topical DAILY Qty: 30 0RF Rx Instructions: leave on most painful area for up to 12 hrs albuterol sulfate 90 mcg/actuation HFA aerosol inhaler 90 mcg inhalation Q4-6H PRN (Reason: Asthma) Qty: 8.5 10RF fluticasone propion-salmeterol [Advair Diskus] 500-50 mcg/dose blister with device 1 inh inhalation ONCE Qty: 60 10RF metformin 1,000 mg tablet 1,000 mg PO BID Qty: 60 5RF amlodipine 5 mg tablet 5 mg PO DAILY Qty: 30 5RF (DME) pen needle, diabetic [BD Ultra-Fine Cortney Pen Needle] 32 gauge x 5/32 needle See Rx Instructions .Route Qty: 100 2RF Rx Instructions: As directed losartan 50 mg tablet See Rx Instructions .ROUTE .COMPLEX Qty: 90 0RF Dose Instruction: TAKE ONE TABLET BY MOUTH EVERY DAY FOR BLOOD PRESSURE Rx Instructions: TAKE ONE TABLET BY MOUTH EVERY DAY FOR BLOOD PRESSURE levothyroxine 25 mcg tablet See Rx Instructions .ROUTE .COMPLEX Qty: 90 0RF Dose Instruction: TAKE ONE TABLET BY MOUTH EVERY DAY Rx Instructions: TAKE ONE TABLET BY MOUTH EVERY DAY primidone 50 mg tablet 100 mg PO TID Qty: 180 3RF pravastatin 80 mg tablet 80 mg PO DAILY 30 Days Qty: 30 4RF gabapentin 800 mg tablet 800 mg PO QID Qty: 120 2RF spironolactone 25 mg tablet See Rx Instructions .ROUTE .COMPLEX Qty: 90 0RF Dose Instruction: TAKE ONE TABLET BY MOUTH EVERY DAY FOR fluid Rx Instructions: TAKE ONE TABLET BY MOUTH EVERY DAY FOR fluid insulin glargine [Basaglar KwikPen U-100 Insulin] 100 unit/mL (3 mL) insulin pen See Rx Instructions .ROUTE .COMPLEX Qty: 15 4RF Dose Instruction: INJECT 45 UNITS SUBCUTANEOUSLY EVERY DAY AT BEDTIME Rx Instructions: INJECT 45 UNITS SUBCUTANEOUSLY EVERY DAY AT BEDTIME glimepiride 4 mg tablet See Rx Instructions .ROUTE .COMPLEX Qty: 60 1RF Dose Instruction: TAKE ONE TABLET BY MOUTH TWICE DAILY FOR DIABETES Rx Instructions: TAKE ONE TABLET BY MOUTH TWICE DAILY FOR DIABETES cetirizine 10 MG tablet,chewable 10 mg PO DAILY cholecalciferol (vitamin D3) 2,000 UNIT tablet 2,000 unit PO DAILY furosemide 40 mg tablet 20 mg PO DAILY magnesium 200 MG tablet 200 mg PO DAILY Referrals Follow up/Referrals: Konstantin Walters MD [Primary Care Provider] - See instructions Activity Restrictions/Add. Instructions Additional Instructions/Restrictions: You presented today for bilateral lower extremity weakness a
--- NOTE | 2023-01-13 12:42 | ECG_ITS ---
APPROVED REPORT Exam: Resting ECG HR:55 bpm ECG Measurements Heart Rate 55 AXES TX 168 P 64 QRSd 75 QRS 61 QT 434 T 71 QTc 424 Conclusion SINUS BRADYCARDIA Old septal changes O.w normal ecg UNCONFIRMED REPORT Electronically signed by : Eriberto Leonard MD 01/13/2023 17:11:47
--- NOTE | 2023-01-13 12:46 | ED_ITS ---
Discharge Plan Disposition Patient Disposition: Still a Patient Condition: Fair Prescriptions Prescriptions: New prednisone 50 mg tablet 50 mg PO DAILY 5 Days Qty: 5 0RF Rx Instructions: Please begin 1 day after ED visit No Action fenofibrate micronized 134 mg capsule 134 mg PO DAILY Qty: 90 Patient Comments: TAKE 1 CAPSULE BY MOUTH EVERY DAY azelastine-fluticasone 137-50 mcg/spray spray,non-aerosol 1 spray intranasal BID Qty: 23 0RF Rx Instructions: administer into each nostril nystatin 100,000 unit/mL suspension 4 ml PO QID 10 Days Qty: 160 1RF Rx Instructions: swish, gargle, and swallow metronidazole 500 mg tablet 500 mg PO TID Qty: 21 0RF desonide 0.05 % cream 1 applic topical BID Qty: 60 0RF cyclosporine [Restasis] 0.05 % dropperette 1 drp OPHTHALMIC Q12H ipratropium-albuterol 0.5 mg-3 mg(2.5 mg base)/3 mL solution for nebulization 3 ml inhalation QID Qty: 360 1RF Creon 36,000-114,000- 180,000 unit capsule,delayed release(DR/EC) 2 cap PO TID Qty: 360 2RF Rx Instructions: administer with meals and/or snacks diazepam 10 mg tablet 10 mg PO BID PRN (Reason: Anxiety) Qty: 60 2RF oxycodone 5 mg tablet 5 mg PO TID Qty: 90 0RF Rx Instructions: increase dose propranolol 60 mg tablet 60 mg PO .COMPLEX Qty: 240 4RF Rx Instructions: 60 mg PO AM AND PM; 30mg (1/2 TAB) PO NOON; lidocaine 5 % adhesive patch,medicated 1 patch topical DAILY Qty: 30 0RF Rx Instructions: leave on most painful area for up to 12 hrs albuterol sulfate 90 mcg/actuation HFA aerosol inhaler 90 mcg inhalation Q4-6H PRN (Reason: Asthma) Qty: 8.5 10RF fluticasone propion-salmeterol [Advair Diskus] 500-50 mcg/dose blister with device 1 inh inhalation ONCE Qty: 60 10RF metformin 1,000 mg tablet 1,000 mg PO BID Qty: 60 5RF amlodipine 5 mg tablet 5 mg PO DAILY Qty: 30 5RF (DME) pen needle, diabetic [BD Ultra-Fine Cortney Pen Needle] 32 gauge x 5/32 needle See Rx Instructions .Route Qty: 100 2RF Rx Instructions: As directed losartan 50 mg tablet See Rx Instructions .ROUTE .COMPLEX Qty: 90 0RF Dose Instruction: TAKE ONE TABLET BY MOUTH EVERY DAY FOR BLOOD PRESSURE Rx Instructions: TAKE ONE TABLET BY MOUTH EVERY DAY FOR BLOOD PRESSURE levothyroxine 25 mcg tablet See Rx Instructions .ROUTE .COMPLEX Qty: 90 0RF Dose Instruction: TAKE ONE TABLET BY MOUTH EVERY DAY Rx Instructions: TAKE ONE TABLET BY MOUTH EVERY DAY primidone 50 mg tablet 100 mg PO TID Qty: 180 3RF pravastatin 80 mg tablet 80 mg PO DAILY 30 Days Qty: 30 4RF gabapentin 800 mg tablet 800 mg PO QID Qty: 120 2RF spironolactone 25 mg tablet See Rx Instructions .ROUTE .COMPLEX Qty: 90 0RF Dose Instruction: TAKE ONE TABLET BY MOUTH EVERY DAY FOR fluid Rx Instructions: TAKE ONE TABLET BY MOUTH EVERY DAY FOR fluid insulin glargine [Basaglar KwikPen U-100 Insulin] 100 unit/mL (3 mL) insulin pen See Rx Instructions .ROUTE .COMPLEX Qty: 15 4RF Dose Instruction: INJECT 45 UNITS SUBCUTANEOUSLY EVERY DAY AT BEDTIME Rx Instructions: INJECT 45 UNITS SUBCUTANEOUSLY EVERY DAY AT BEDTIME glimepiride 4 mg tablet See Rx Instructions .ROUTE .COMPLEX Qty: 60 1RF Dose Instruction: TAKE ONE TABLET BY MOUTH TWICE DAILY FOR DIABETES Rx Instructions: TAKE ONE TABLET BY MOUTH TWICE DAILY FOR DIABETES cetirizine 10 MG tablet,chewable 10 mg PO TOMAS
--- NOTE | 2023-01-13 12:46 | PC.NURSE ---
EKG read Acute MD AJNETTE states the EKG is not an acute MO
[2023-01-13 12:47] VITALS: BP 119/70; PULSE 59; RESP 18; TEMP 36.7; O2SAT 97; BMI 34.0
--- NOTE | 2023-01-13 12:50 | XR_ITS ---
FINAL REPORT CLINICAL HISTORY: lower extremity weakness FINDINGS: SINGLE VIEW PELVIS: A single view of the pelvis was obtained. There is no acute fracture or dislocation. Degenerative joint disease of the hips bilaterally, left greater than right and to the sacroiliac joints. Soft tissues are unremarkable. IMPRESSION: No acute bony abnormality. Degenerative joint disease of the hips and sacroiliac joints. Authenticated and [facility]
--- NOTE | 2023-01-13 12:52 | XR_ITS ---
FINAL REPORT CLINICAL HISTORY: nicole COMPARISON: 04/19/2022 FINDINGS: A portable view of the chest was obtained. Cardiac and mediastinal silhouettes are within normal limits. The lungs are clear. There is no pleural effusion or pneumothorax. IMPRESSION: No acute process on this portable exam. Authenticated and [facility]
[2023-01-13 13:01] VITALS: BP 101/54; PULSE 56; O2SAT 95
--- NOTE | 2023-01-13 13:03 | PC.NURSE ---
XR at bedside
[2023-01-13 13:07] LABS: Alanine Aminotransferase 51 U/L (12-78); Albumin/Globulin Ratio 1.1 (1.1-1.8); Alkaline Phosphatase 115 U/L (38-126); Anion Gap 11.6 mEq/L (5-15); Aspartate Amino Transferase 47 U/L (14-36); Bilirubin,Total 0.4 mg/dl (0.2-1.3); Blood Urea Nitrogen 17 mg/dl (7-17); Calcium 9.6 mg/dl (8.4-10.2); Carbon Dioxide 27 mmol/L (22.0-30.0); Chloride 104 mmol/L (98-107); Creatine Kinase 36 U/L (30-135); Creatinine Clearance Estimated 65 mL/min (50-200); Estimated Glomerular Filt Rate 61 ml/min (>60); GFR (African American) 74 ML/MIN (>60); Globulin 3.7 g/dL (1.3-3.2); Glucose 119 mg/dl (74-100); Magnesium 1.9 mg/dl (1.6-2.3); Phosphorous 4.1 mg/dl (2.5-4.5); Potassium 4.6 mmoL/L (3.5-5.1); Sodium 138 mmol/L (136-145); Total Protein,Serum 7.7 g/dl (6.3-8.2)
--- NOTE | 2023-01-13 13:10 | CT_ITS ---
FINAL REPORT TECHNIQUE: Thin section axial images were obtained from skull base to vertex without contrast. Coronal reconstruction images were obtained from the axial data. Exam was performed using dose reduction technique. CLINICAL HISTORY: bilateral lower extremity weakness, recent falls COMPARISON: None FINDINGS: There is no mass effect or midline shift. There is no hydrocephalus. There is no intracranial hemorrhage. The posterior fossa is without acute abnormality. The basilar cisterns are preserved. The soft tissues are without acute abnormality. No acute osseous abnormality is identified. IMPRESSION: No acute intracranial abnormality. Reviewed, Interpreted and Dictated by Patience Liang MD Transcribed by Rose Soto Authenticated and [facility]
[2023-01-13 13:13] LABS: C-Reactive Protein 18.7 mg/L (0-4)
[2023-01-13 13:18] LABS: NT Pro Brain Natriuretic Pep. 406 pg/mL (0-125)
--- NOTE | 2023-01-13 13:20 | PC.NURSE ---
Patient updated on plan of care. Pillow provided. Pain reported to zelalem HUBBARD. Call light within reach.
--- NOTE | 2023-01-13 13:20 | PC.NURSE ---
PT SETTING IN BED NOTHING NEEDED AT THIS TIME, CALL LIGHT AT BS
[2023-01-13 13:23] LABS: Troponin I < 0.01 ng/ml (0.00-0.034)
--- NOTE | 2023-01-13 13:26 | PC.NURSE ---
PT TO CT
[2023-01-13 13:34] LABS: Erythrocyte Sedimentation Rate 93 mm/hr (0-30)
--- NOTE | 2023-01-13 13:34 | PC.NURSE ---
PT ARRIVED BACK TO ROOM FROM CT
--- NOTE | 2023-01-13 13:36 | PC.NURSE ---
Patient A&O x 4. Pt requesting to sit on the side of the bed with legs to gravity to assist with pain. Pt educated on risk of fall. Call light within reach. Direct visualization of patient.
[2023-01-13 13:38] LABS: Basophils # 0.1 K/mm3 (0-0.2); Basophils % 0.6 % (0.1-2.0); Eosinophils # 0.2 K/mm3 (0.0-0.4); Eosinophils % 2.1 % (0.1-12.0); Hematocrit 37.7 % (37.0-47.0); Hemoglobin 12.9 g/dL (12.2-16.2); Lymphocytes # 3.4 K/mm3 (0.7-4.5); Lymphocytes % 35.7 % (10-50); Mean Corpuscular HGB Conc 34.3 g/dL (31.8-35.4); Mean Corpuscular Hemoglobin 32.3 pg (27.0-31.2); Mean Corpuscular Volume 94.1 fl (81-99); Mean Platelet Volume 7.9 fl (7.4-10.4); Monocytes # 0.5 K/mm3 (0.1-1.0); Neutrophils # 5.3 K/mm3 (1.8-7.8); Neutrophils % 56.7 % (37.0-80.0); Platelet Count 286 K/mm3 (142-424); Red Blood Count 4.01 M/mm3 (4.20-5.40); Red Cell Distribution Width 14.2 % (11.5-17.5); White Blood Count 9.4 K/mm3 (4.8-10.8)
--- NOTE | 2023-01-13 13:57 | PC.NURSE ---
MD updated patient on plan of care.
[2023-01-13 14:38] VITALS: BP 123/63; PULSE 58; RESP 18; TEMP 36.6; O2SAT 98
== END 2023-01-13 14:39 | disposition still patient (30) ==
LOC: UTC 12:24 → ER 12:24
PROVIDERS: Emergency Provider Student in an Organized Health Care Education/Training Program; PCP Family Medicine
DX: R53.1 Weakness (principal); M35.3 Polymyalgia rheumatica; R29.6 Repeated falls; E11.9 Type 2 diabetes mellitus without complications; I10 Essential (primary) hypertension; E78.5 Hyperlipidemia, unspecified; J44.9 Chronic obstructive pulmonary disease, unspecified; F17.210 Nicotine dependence, cigarettes, uncomplicated
CPT/HCPCS: 70450; 71045; 72170; 80053; 82550; 83735; 83880; 84100; 84484; 85025; 85651; 86140; 93005; 99285

== ENCOUNTER 2023-01-19 06:34 | Emergency (ER) | payer MEDICARE, OTHER, SELFPAY ==
[2023-01-19] VITALS (8 sets, daily range): BP systolic 90–111; BP diastolic 55–63; PULSE 58–61; RESP 17–22; TEMP 36.6–36.7; O2SAT 98–100; BMI 34.0
--- NOTE | 2023-01-19 07:04 | XR_ITS ---
FINAL REPORT CLINICAL HISTORY: fall COMPARISON: 01/13/2023 FINDINGS: No acute pulmonary opacity is present. There is no evidence of effusion or pneumothorax. Mediastinum is unremarkable. Heart size is normal. IMPRESSION: No acute abnormality. Reviewed, Interpreted and Dictated by Konstantin Diaz MD Transcribed by Hanane Batista Authenticated and [facility][1]
--- NOTE | 2023-01-19 07:04 | XR_ITS ---
FINAL REPORT CLINICAL HISTORY: Left knee pain after fall COMPARISON: None FINDINGS: LEFT KNEE 4 views of the left knee were obtained. There is no acute fracture or dislocation. There is severe tricompartmental degenerative change. Visualized joint spaces are normally aligned. Soft tissues are unremarkable. IMPRESSION: No acute bony abnormality. Reviewed, Interpreted and Dictated by Konstantin Diaz MD Transcribed by Hanane Batista Authenticated and [facility]
--- NOTE | 2023-01-19 07:04 | XR_ITS ---
FINAL REPORT CLINICAL HISTORY: Acute right knee pain after fall COMPARISON: None FINDINGS: RIGHT KNEE 3 views of the right knee were obtained. There is no acute fracture or dislocation. Moderate tricompartmental degenerative change. Visualized joint spaces are normally aligned. Soft tissues are unremarkable. IMPRESSION: No acute bony abnormality. Reviewed, Interpreted and Dictated by Konstantin Diaz MD Transcribed by Hanane Batista Authenticated and [facility]
--- NOTE | 2023-01-19 07:04 | CT_ITS ---
FINAL REPORT TECHNIQUE: Noncontrast exam CLINICAL HISTORY: fall COMPARISON: 01/13/2023 FINDINGS: No abnormal density is seen. Mild generalized atrophy. Ventricles are normal. There is no hemorrhage. No mass effect is seen. Mucous retention cyst in the posterior right ethmoid sinus. Bone windows show no evidence of fracture. IMPRESSION: No acute intracranial abnormality. Reviewed, Interpreted and Dictated by Konstantin Diaz MD Transcribed by Hanane Batista Authenticated and [facility]
--- NOTE | 2023-01-19 07:04 | CT_ITS ---
FINAL REPORT TECHNIQUE: Thin section axial CT with sagittal reconstruction without contrast was obtained of the cervical spine. This study was performed with techniques to keep radiation doses as low as reasonably achievable, (ALARA). Individualized dose reduction techniques using automated exposure control or adjustment of mA and/or kV according to the patient's size were employed. CLINICAL HISTORY: Acute neck pain after a fall COMPARISON: None FINDINGS: No fracture is seen. Alignment is normal. Severe diffuse degenerative disc disease. Spondylosis. IMPRESSION: No fracture or malalignment. Reviewed, Interpreted and Dictated by Konstantin Diaz MD Transcribed by Hanane Batista Authenticated and [facility]
--- NOTE | 2023-01-19 07:04 | XR_ITS ---
FINAL REPORT CLINICAL HISTORY: Pelvic pain after fall COMPARISON: 01/13/2023 FINDINGS: SINGLE VIEW PELVIS: A single view of the pelvis was obtained. There is no acute fracture or dislocation. Moderate degenerative changes of the left hip. Mild degenerative changes of the bilateral SI joints. Visualized joint spaces are normally aligned. Soft tissues are unremarkable. IMPRESSION: No acute bony abnormality. Reviewed, Interpreted and Dictated by Konstantin Diaz MD Transcribed by Hanane Batista Authenticated and [facility]
--- NOTE | 2023-01-19 07:09 | HMH.EDGENADL ---
Discharge Plan Disposition Patient Disposition: Home, Self-Care Condition: Good Prescriptions Prescriptions: No Action fenofibrate micronized 134 mg capsule 134 mg PO DAILY Qty: 90 Patient Comments: TAKE 1 CAPSULE BY MOUTH EVERY DAY azelastine-fluticasone 137-50 mcg/spray spray,non-aerosol 1 spray intranasal BID Qty: 23 0RF Rx Instructions: administer into each nostril nystatin 100,000 unit/mL suspension 4 ml PO QID 10 Days Qty: 160 1RF Rx Instructions: swish, gargle, and swallow metronidazole 500 mg tablet 500 mg PO TID Qty: 21 0RF desonide 0.05 % cream 1 applic topical BID Qty: 60 0RF cyclosporine [Restasis] 0.05 % dropperette 1 drp OPHTHALMIC Q12H ipratropium-albuterol 0.5 mg-3 mg(2.5 mg base)/3 mL solution for nebulization 3 ml inhalation QID Qty: 360 1RF Creon 36,000-114,000- 180,000 unit capsule,delayed release(DR/EC) 2 cap PO TID Qty: 360 2RF Rx Instructions: administer with meals and/or snacks diazepam 10 mg tablet 10 mg PO BID PRN (Reason: Anxiety) Qty: 60 2RF oxycodone 5 mg tablet 5 mg PO TID Qty: 90 0RF Rx Instructions: increase dose propranolol 60 mg tablet 60 mg PO .COMPLEX Qty: 240 4RF Rx Instructions: 60 mg PO AM AND PM; 30mg (1/2 TAB) PO NOON; lidocaine 5 % adhesive patch,medicated 1 patch topical DAILY Qty: 30 0RF Rx Instructions: leave on most painful area for up to 12 hrs albuterol sulfate 90 mcg/actuation HFA aerosol inhaler 90 mcg inhalation Q4-6H PRN (Reason: Asthma) Qty: 8.5 10RF fluticasone propion-salmeterol [Advair Diskus] 500-50 mcg/dose blister with device 1 inh inhalation ONCE Qty: 60 10RF metformin 1,000 mg tablet 1,000 mg PO BID Qty: 60 5RF amlodipine 5 mg tablet 5 mg PO DAILY Qty: 30 5RF (DME) pen needle, diabetic [BD Ultra-Fine Cortney Pen Needle] 32 gauge x 5/32 needle See Rx Instructions .Route Qty: 100 2RF Rx Instructions: As directed losartan 50 mg tablet See Rx Instructions .ROUTE .COMPLEX Qty: 90 0RF Dose Instruction: TAKE ONE TABLET BY MOUTH EVERY DAY FOR BLOOD PRESSURE Rx Instructions: TAKE ONE TABLET BY MOUTH EVERY DAY FOR BLOOD PRESSURE levothyroxine 25 mcg tablet See Rx Instructions .ROUTE .COMPLEX Qty: 90 0RF Dose Instruction: TAKE ONE TABLET BY MOUTH EVERY DAY Rx Instructions: TAKE ONE TABLET BY MOUTH EVERY DAY primidone 50 mg tablet 100 mg PO TID Qty: 180 3RF pravastatin 80 mg tablet 80 mg PO DAILY 30 Days Qty: 30 4RF gabapentin 800 mg tablet 800 mg PO QID Qty: 120 2RF spironolactone 25 mg tablet See Rx Instructions .ROUTE .COMPLEX Qty: 90 0RF Dose Instruction: TAKE ONE TABLET BY MOUTH EVERY DAY FOR fluid Rx Instructions: TAKE ONE TABLET BY MOUTH EVERY DAY FOR fluid insulin glargine [Basaglar KwikPen U-100 Insulin] 100 unit/mL (3 mL) insulin pen See Rx Instructions .ROUTE .COMPLEX Qty: 15 4RF Dose Instruction: INJECT 45 UNITS SUBCUTANEOUSLY EVERY DAY AT BEDTIME Rx Instructions: INJECT 45 UNITS SUBCUTANEOUSLY EVERY DAY AT BEDTIME glimepiride 4 mg tablet See Rx Instructions .ROUTE .COMPLEX Qty: 60 1RF Dose Instruction: TAKE ONE TABLET BY MOUTH TWICE DAILY FOR DIABETES Rx Instructions: TAKE ONE TABLET BY MOUTH TWICE DAILY FOR DIABETES cetirizine 10 MG tablet,chewable 10 mg PO DAILY cholecalciferol (vitamin D3) 2,000 UNIT tablet 2,000 unit PO DAILY furosemide 40 mg tablet 20 mg PO DAILY prednisone 50 mg tablet 50 mg PO DAILY 5 Days Qty: 5 0RF Rx Instructions: Please begin 1 day after ED visit magnesium 200 MG tablet 200 mg PO DAILY Referrals Follow up/Referrals: Konstantin Walters MD [Primary Care Provider] - See instructions Activity Restrictions/Add. Instructions Additional Instructions/Restrictions: You were evaluated in the ED for generalized weakness. We are prov
--- NOTE | 2023-01-19 07:12 | PC.NURSE ---
Re-adjusted BP cuff and re-cycled pressure.
[2023-01-19 07:28] LABS: Basophils # 0.1 K/mm3 (0-0.2); Basophils % 0.4 % (0.1-2.0); Eosinophils # 0.3 K/mm3 (0.0-0.4); Eosinophils % 1.9 % (0.1-12.0); Hematocrit 38.5 % (37.0-47.0); Lymphocytes # 3.1 K/mm3 (0.7-4.5); Lymphocytes % 22.4 % (10-50); Mean Corpuscular HGB Conc 31.1 g/dL (31.8-35.4); Mean Corpuscular Hemoglobin 29.6 pg (27.0-31.2); Mean Corpuscular Volume 95.1 fl (81-99); Mean Platelet Volume 8.2 fl (7.4-10.4); Monocytes # 0.5 K/mm3 (0.1-1.0); Monocytes % 3.5 % (1.7-9.3); Neutrophils # 10.1 K/mm3 (1.8-7.8); Neutrophils % 71.8 % (37.0-80.0); Platelet Count 281 K/mm3 (142-424); Red Blood Count 4.05 M/mm3 (4.20-5.40); Red Cell Distribution Width 14.5 % (11.5-17.5)
[2023-01-19 07:45] LABS: Alanine Aminotransferase 35 U/L (12-78); Albumin Level 3.8 g/dl (3.5-5.0); Albumin/Globulin Ratio 1.2 (1.1-1.8); Alkaline Phosphatase 86 U/L (38-126); Anion Gap 13.1 mEq/L (5-15); Aspartate Amino Transferase 55 U/L (14-36); Bilirubin,Total 0.3 mg/dl (0.2-1.3); Blood Urea Nitrogen 29 mg/dl (7-17); Carbon Dioxide 24 mmol/L (22.0-30.0); Chloride 105 mmol/L (98-107); Creatinine Clearance Estimated 65 mL/min (50-200); Estimated Glomerular Filt Rate 54 ml/min (>60); GFR (African American) 66 ML/MIN (>60); Globulin 3.3 g/dL (1.3-3.2); Glucose 97 mg/dl (74-100); Potassium 4.1 mmoL/L (3.5-5.1); Sodium 138 mmol/L (136-145); Total Protein,Serum 7.1 g/dl (6.3-8.2)
--- NOTE | 2023-01-19 09:07 | PC.NURSE ---
PT ambulated to the bathroom with walker and my assistance, pt states that she has been in her knees when ambulating. Returning to room from bathroom pt felt weak, pt placed in wheelchair for instructional support assistant back to her room. MD adams
--- NOTE | 2023-01-19 09:09 | PC.NURSE ---
Contacting Dr. Walters to speak with PARRIS SEARS
--- NOTE | 2023-01-19 09:10 | PC.NURSE ---
Dr. Hensley speaking with Dr Walters at this time
[2023-01-19 09:11] LABS: Microscopic, Urine URINE MICROSCOPIC (MICROSCOPIC)
[2023-01-19 09:14] LABS: Appearance,Urine CLEAR (Clear); Bilirubin,Urine Negative (Negative); Blood, Urine Negative (Negative); Color,Urine YELLOW (Yellow); Glucose,Urine (UA) Negative (Negative); Ketones,Urine Negative (Negative); Leukocyte Esterase,Urine Negative (Negative); Nitrate,Urine Negative (Negative); PH,Urine 5.5 (5.0-8.5); Protein,Urine TRACE (Negative); Urobilinogen,Urine 0.2 EU/dl (0.2)
[2023-01-19 09:22] LABS: Creatine Kinase 40 U/L (30-135)
--- NOTE | 2023-01-19 09:22 | PC.NURSE ---
care management with pt
--- NOTE | 2023-01-19 09:30 | PC.NURSE ---
per Jina in CM, pt is to go home with home health. aware
== END 2023-01-19 09:49 | disposition home or self-care (01) ==
PROVIDERS: Emergency Provider Emergency Medicine; PCP Family Medicine
DX: R53.1 Weakness (principal); S00.12XA Contusion of left eyelid and periocular area, initial encounter; M25.561 Pain in right knee; M25.562 Pain in left knee; R26.89 Other abnormalities of gait and mobility; M54.16 Radiculopathy, lumbar region; M48.00 Spinal stenosis, site unspecified; K86.1 Other chronic pancreatitis; I10 Essential (primary) hypertension; E78.5 Hyperlipidemia, unspecified; W19.XXXA Unspecified fall, initial encounter; F17.200 Nicotine dependence, unspecified, uncomplicated
CPT/HCPCS: 70450; 71045; 72125; 72170; 73562; 80053; 81001; 82550; 85025

== ENCOUNTER 2023-01-19 17:41 | Observation (INO) | payer MEDICARE, OTHER, SELFPAY ==
[2023-01-19 17:46] VITALS: BP 118/57; PULSE 62; RESP 16; TEMP 36.8; O2SAT 98; BMI 27.4
[2023-01-19 18:01] VITALS: BP 80/46; PULSE 64; O2SAT 97
[2023-01-19 18:05] LABS: Basophils % 0.3 % (0.1-2.0); Eosinophils # 0.2 K/mm3 (0.0-0.4); Eosinophils % 1.7 % (0.1-12.0); Hematocrit 39.7 % (37.0-47.0); Hemoglobin 12.2 g/dL (12.2-16.2); Lymphocytes # 1.9 K/mm3 (0.7-4.5); Lymphocytes % 14.8 % (10-50); Mean Corpuscular HGB Conc 30.7 g/dL (31.8-35.4); Mean Corpuscular Hemoglobin 28.8 pg (27.0-31.2); Mean Corpuscular Volume 93.8 fl (81-99); Mean Platelet Volume 8.6 fl (7.4-10.4); Monocytes # 0.5 K/mm3 (0.1-1.0); Monocytes % 3.6 % (1.7-9.3); Neutrophils # 10.5 K/mm3 (1.8-7.8); Neutrophils % 79.7 % (37.0-80.0); Platelet Count 274 K/mm3 (142-424); Red Blood Count 4.23 M/mm3 (4.20-5.40); Red Cell Distribution Width 14.6 % (11.5-17.5); White Blood Count 13.1 K/mm3 (4.8-10.8)
[2023-01-19 18:06] VITALS: BP 97/59; PULSE 61; O2SAT 96
[2023-01-19 18:06] LABS: Chloride 102 mmol/L (98-107)
[2023-01-19 18:07] LABS: Potassium 4.2 mmoL/L (3.5-5.1); Sodium 135 mmol/L (136-145)
[2023-01-19 18:09] LABS: Alanine Aminotransferase 39 U/L (12-78); Albumin Level 3.9 g/dl (3.5-5.0); Albumin/Globulin Ratio 1.1 (1.1-1.8); Alkaline Phosphatase 101 U/L (38-126); Anion Gap 15.2 mEq/L (5-15); Aspartate Amino Transferase 46 U/L (14-36); Bilirubin,Total 0.4 mg/dl (0.2-1.3); Blood Urea Nitrogen 28 mg/dl (7-17); Carbon Dioxide 22 mmol/L (22.0-30.0); Creatinine Clearance Estimated 59 mL/min (50-200); Estimated Glomerular Filt Rate 54 ml/min (>60); GFR (African American) 66 ML/MIN (>60); Globulin 3.6 g/dL (1.3-3.2); Total Protein,Serum 7.5 g/dl (6.3-8.2)
[2023-01-19 18:10] LABS: Calcium 9.2 mg/dl (8.4-10.2); Glucose 134 mg/dl (74-100)
--- NOTE | 2023-01-19 18:10 | HMH.EDGENADL ---
Discharge Plan Disposition Patient Disposition: Home, Self-Care Chief Complaint: Fall Clinical Impressions Clinical Impression: Adult failure to thrive Discharge ED Provider: Vasile Glasgow General Adult HPI General Chief complaint: Fall Stated complaint: Weakness Time Seen by Provider: 01/19/23 17:52 Mode of Arrival: EMS Source of Information: Patient Limitations: No Limitations Description of Symptoms (Recalled from ER Triage Doc. by RN): 72 yo F presents to ED with c/o weakness. pt was seen in ED this morning, sent home with Home Health PT/OT. pt reports around 1530 she was walking and just fell. pt reports no new pain. pt states chronic pain that is no different. History of Present Illness HPI narrative: This is a 72-year-old female with multiple comorbidities presenting with generalized weakness. Patient states that she has been getting generally weak over the past few weeks. Walker is not helping. Having multiple falls per day. Has been seen multiple times in this emergency department over the last week having concern for falls and weakness and inability to function at her normal baseline. Because of this, numerous conversations have been had with patient regarding inpatient rehab versus assisted living, but patient is adamant against these things. Had 2 falls today, has been evaluated since, but states she still feels so weak that she can barely get around the house, so called an ambulance after talking to her primary care provider to come to the emergency department for further evaluation. No other trauma, chest pain, shortness of breath, lower extremity swelling, new or worsening pain, or any other concerns. Related Data Home Medications Medication Instructions Recorded Confirmed cetirizine 10 mg chewable tablet 10 mg PO DAILY allergies 09/01/17 12/09/22 cholecalciferol (vitamin D3) 50 2,000 unit PO DAILY Supplement 09/01/17 12/09/22 mcg (2,000 unit) tablet cyclosporine 0.05 % eye drops in a 1 drp OPHTHALMIC Q12H dry eye 10/25/17 12/09/22 dropperette (Restasis) fenofibrate micronized 134 mg 134 mg PO DAILY Cholesterol #90 01/08/19 12/09/22 capsule caps magnesium 200 mg tablet 200 mg PO DAILY Supplement 08/30/21 12/09/22 furosemide 40 mg tablet 20 mg PO DAILY Fluid 03/08/22 12/09/22 Previous Rx's Medication Instructions Recorded propranolol 60 mg tablet 60 mg PO .COMPLEX Heartburn #240 01/27/22 tabs ipratropium 0.5 mg-albuterol 3 mg 3 ml inhalation QID #360 mL 04/19/22 (2.5 mg base)/3 mL nebulization soln nystatin 100,000 unit/mL oral 4 ml PO QID 10 days #160 mL 04/26/22 suspension azelastine-fluticasone 137 mcg-50 1 spray intranasal BID rhinitis 06/07/22 mcg/spray nasal spray #23 grams lidocaine 5 % topical patch 1 patch topical DAILY #30 ea 06/09/22 albuterol sulfate 90 mcg/actuation 90 mcg inhalation Q4-6H PRN Asthma 08/03/22 aerosol inhaler #8.5 grams fluticasone 500 mcg-salmeterol 50 1 inh inhalation ONCE allergies 08/03/22 mcg/dose blistr powdr for #60 ea inhalation (Advair Diskus) metformin 1,000 mg tablet 1,000 mg PO BID Diabetes #60 tabs 09/06/22 amlodipine 5 mg tablet 5 mg PO DAILY bp #30 tabs 09/23/22 metronidazole 500 mg tablet 500 mg PO TID diarrhea #21 tabs 10/07/22 pen needle, diabetic 32 gauge x #100 ea 10/13/22 (BD Ultra-Fine Cortney Pen Needle) levothyroxine 25 mcg tablet See Rx Instructions .Route 10/17/22 .COMPLEX #90 tabs losartan 50 mg tablet See Rx Instructions .Route 10/17/22 .COMPLEX #90 tabs desonide 0.05 % topical cream 1 applic topical BID rash #60 grams 10/18/22 primidone 50 mg tablet 100 mg PO TID tremor #180 tabs 11/01/22 pravastatin 80 mg tablet 80 mg PO DAILY . 30 days #30 tabs 11/02/22 diazepam 10 mg tablet 10 mg PO BID PRN Anxiety #60 tabs 12/09/22 [id number]-[id number] 2 cap PO TID fibrosing 12/09/22 36,000-114,000-180,000 unit pancreatitis #360 caps capsule,delay rel (Creon) oxycodone 5 mg tablet 5 mg PO TID spinal stenosis #90 12/09/22
--- NOTE | 2023-01-19 18:20 | PC.NURSE ---
Pt assigned to room 203 for Failure to thrive to MD Sherrie. OBS
--- NOTE | 2023-01-19 18:28 | PC.NURSE ---
i spoke with pt sister and updated her on admission with possible placement by dr ventura
[2023-01-19 18:30] VITALS: BP 100/64; PULSE 62; O2SAT 97
--- NOTE | 2023-01-19 18:53 | PC.NURSE ---
sarah called to genevieve on second floor
--- NOTE | 2023-01-19 19:31 | PC.NURSE ---
pt arrived to floor at this time
[2023-01-19 19:42] VITALS: BP 100/64; PULSE 62; RESP 16; TEMP 36.8; O2SAT 97
[2023-01-19 20:00] VITALS: BP 121/69; PULSE 61; RESP 20; TEMP 36.7; O2SAT 96; BMI 31.4
--- NOTE | 2023-01-19 20:58 | EXP.ACUTE.PN ---
Subjective *Date: 01/19/23 *Time: 20:58 Interval history: See ER record. Admitted with weakness and falling. History of severe spinal stenosis. Medical Exam Vital signs and Labs for Last 24 Hours: Vital Signs Temp Pulse Pulse Resp BP BP Pulse Ox 01/19/23 20:00 98.1 F 61 20 121/69 96 01/19/23 19:42 98.2 F 62 16 100/64 L 01/19/23 18:30 62 100/64 L 97 01/19/23 18:06 61 97/59 L 96 01/19/23 18:01 64 80/46 L 97 01/19/23 17:46 98.2 F 62 16 118/57 L 98 O2 Del Method 01/19/23 20:00 Room Air 01/19/23 19:42 Room Air 01/19/23 18:30 Room Air 01/19/23 18:06 Room Air 01/19/23 18:01 Room Air 01/19/23 17:46 Intake and Output 01/19/23 01/19/23 01/20/23 11:59 19:59 03:59 Other: Weight 165 lb 188 lb 12.8 oz Patient Weight 01/20/23 11:59 Weight 188 lb 12.8 oz Laboratory Results - last 24 hr 01/19/23 17:45: WBC 13.1 H, RBC 4.23, Hgb 12.2, Hct 39.7, MCV 93.8, MCH 28.8, MCHC 30.7 L, RDW 14.6, Plt Count 274, MPV 8.6, Neut % (Auto) 79.7, Lymph % (Auto) 14.8, [place] % (Auto) 3.6, Eos % (Auto) 1.7, Baso % (Auto) 0.3, Neut # (Auto) 10.5 H, Lymph # (Auto) 1.9, [place] # (Auto) 0.5, Eos # (Auto) 0.2, Baso # (Auto) 0.0, Sodium 135 L, Potassium 4.2, Chloride 102, Carbon Dioxide 22, Anion Gap 15.2 H, BUN 28 H, Creatinine 1.00, Estimated Creat Clear 59, Estimated GFR 54 L, Est GFR ( Amer) 66, Glucose 134 H D, Calcium 9.2, Total Bilirubin 0.4, AST 46 H, ALT 39, Alkaline Phosphatase 101, Total Protein 7.5, Albumin 3.9, Globulin 3.6 H, Albumin/Globulin Ratio 1.1 I & O for Labs for Last 24 Hours: Intake & Output 01/17/23 01/18/23 01/19/23 01/20/23 11:59 11:59 11:59 11:59 Weight 188 lb 12.8 oz Assessment and Plan *Assessment and plan (1) Spinal stenosis: Status: Chronic Category: Medical Code(s): M48.00 - Spinal stenosis, site unspecified (2) Lumbar radiculopathy: Status: Chronic Category: Medical Code(s): M54.16 - Radiculopathy, lumbar region (3) Neurogenic claudication: Status: Chronic Category: Medical Code(s): G95.19 - Other vascular myelopathies (4) Bilateral leg weakness: Status: Acute Category: Medical Code(s): R29.898 - Other symptoms and signs involving the musculoskeletal system (5) Generalized weakness: Status: Acute Category: Medical Code(s): R53.1 - Weakness (6) Ambulatory dysfunction: Status: Acute Category: Medical Code(s): R26.2 - Difficulty in walking, not elsewhere classified (7) COPD (chronic obstructive pulmonary disease) with chronic bronchitis: Status: Acute Category: Medical Code(s): J44.9 - Chronic obstructive pulmonary disease, unspecified (8) Tobacco abuse: Status: Acute Category: Medical Code(s): Z72.0 - Tobacco use (9) Insulin dependent diabetes mellitus: Status: Acute Category: Medical (10) Type 2 diabetes mellitus: Status: Acute Category: Medical Code(s): E11.9 - Type 2 diabetes mellitus without complications (11) Tremor: Status: Chronic Category: Medical Code(s): R25.1 - Tremor, unspecified (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 PT consultation. Case Management consultation.
[2023-01-19 21:43] LABS: POC Glucose,Bedside 105 (70-110)
--- NOTE | 2023-01-19 21:43 | PC.NURSE ---
held insulin glargine 25u r/t FSBS 105 and pt going to sleep for the night. will continue to monitor t/o night
[2023-01-19 21:51] LABS: Thyroid Stimulating Hormone 2.49 uIU/mL (0.465-4.68)
[2023-01-19 22:45] LABS: Hemoglobin A1C 5.3 % (4.0-6.0)
--- NOTE | 2023-01-20 02:21 | PC.WOUNDNOTE ---
skin tears on bilateral wrist pt acquired prior to admission. covered with non-adherent dsg and medipore tape.
[2023-01-20 04:00] VITALS: BP 123/77; PULSE 63; RESP 17; TEMP 37.3; O2SAT 94; BMI 31.4
--- NOTE | 2023-01-20 04:36 | INFXCTL.NOTE ---
A&OX4. RA. 20 LAC SL. last bm 01/19. voids per purewick r/t weakness of LE. BA on. skin tear on bilateral wrist, noted in prior wound note. photo consent signed and in chart. pt has had a non-productive cough since awakening this morning roughly 0300. has rang out to be turned t/o the night, rotating right/left. 2x assist pending pt/ot eval, pt has not gotten up from the bed since coming to the floor last night. bed locked and in lowest position, call light within reach.
[2023-01-20 05:11] LABS: POC Glucose,Bedside 118 (70-110)
[2023-01-20 06:28] LABS: Basophils % 0.5 % (0.1-2.0); Eosinophils # 0.1 K/mm3 (0.0-0.4); Eosinophils % 1.7 % (0.1-12.0); Hematocrit 35.4 % (37.0-47.0); Hemoglobin 11.2 g/dL (12.2-16.2); Lymphocytes # 2.5 K/mm3 (0.7-4.5); Lymphocytes % 33.5 % (10-50); Mean Corpuscular HGB Conc 31.7 g/dL (31.8-35.4); Mean Corpuscular Hemoglobin 29.7 pg (27.0-31.2); Mean Corpuscular Volume 93.8 fl (81-99); Mean Platelet Volume 8.7 fl (7.4-10.4); Monocytes # 0.3 K/mm3 (0.1-1.0); Monocytes % 4.2 % (1.7-9.3); Neutrophils # 4.4 K/mm3 (1.8-7.8); Neutrophils % 60.1 % (37.0-80.0); Platelet Count 204 K/mm3 (142-424); Red Blood Count 3.77 M/mm3 (4.20-5.40); Red Cell Distribution Width 14.8 % (11.5-17.5); White Blood Count 7.4 K/mm3 (4.8-10.8)
[2023-01-20 06:34] LABS: Alanine Aminotransferase 30 U/L (12-78); Albumin Level 3.4 g/dl (3.5-5.0); Albumin/Globulin Ratio 1.1 (1.1-1.8); Alkaline Phosphatase 86 U/L (38-126); Anion Gap 10.9 mEq/L (5-15); Aspartate Amino Transferase 34 U/L (14-36); Bilirubin,Total 0.3 mg/dl (0.2-1.3); Blood Urea Nitrogen 22 mg/dl (7-17); Calcium 8.7 mg/dl (8.4-10.2); Carbon Dioxide 25 mmol/L (22.0-30.0); Chloride 106 mmol/L (98-107); Creatinine Clearance Estimated 68 mL/min (50-200); Estimated Glomerular Filt Rate 61 ml/min (>60); GFR (African American) 74 ML/MIN (>60); Globulin 3.2 g/dL (1.3-3.2); Glucose 107 mg/dl (74-100); Potassium 3.9 mmoL/L (3.5-5.1); Sodium 138 mmol/L (136-145); Total Protein,Serum 6.6 g/dl (6.3-8.2)
[2023-01-20 07:51] VITALS: BP 117/77; PULSE 66; RESP 18; TEMP 37.6; O2SAT 93
--- NOTE | 2023-01-20 07:56 | HMH.PHAINT1 ---
Pharmacy Intervention Comments: home medication list verified using list from outpatient pharmacy
--- NOTE | 2023-01-20 08:34 | EXP.HP ---
History of Present Illness *Admission Date: 01/20/23 *Reason for visit:: fall with back and hip pain *History of present illness: This is a 72-year-old female with multiple comorbidities presenting with generalized weakness. Patient states that she has been getting generally weak over the past few weeks. Walker is not helping. Having multiple falls per day. Has been seen multiple times in this emergency department over the last week having concern for falls and weakness and inability to function at her normal baseline. Because of this, numerous conversations have been had with patient regarding inpatient rehab versus assisted living, but patient is adamant against these things. Had 2 falls today, has been evaluated since, but states she still feels so weak that she can barely get around the house, so called an ambulance after talking to her primary care provider to come to the emergency department for further evaluation. No other trauma, chest pain, shortness of breath, lower extremity swelling, new or worsening pain, or any other concerns. History was obtained via conversation with patient and chart review. On arrival, patient hemodynamically stable, alert, oriented x4, appropriate, GCS 15, moving all extremities spontaneously, pupils equal and reactive to light. Full physical exam performed and significant for patient resting at baseline no acute distress. Obese. No evidence of deformity lower extremities. Patient atraumatic overall. Appears chronically ill, but in no acute distress. Mildly hypotensive, but dry mucous membranes and delayed cap refill. Nontachycardic and afebrile. Differential includes acute on chronic debility, failure to thrive, malnutrition, among others. Patient was given fluid bolus for symptomatic management and correction of underlying abnormalities. Workup independently interpreted and significant for downtrending white blood cell count, nonactionable chemistry. Imaging considered, but deemed unnecessary given no other trauma since work-up today, 01/19 in the AM. Given patient presentation, workup, history, this most likely represents acute on chronic debility and failure to thrive. Extensive conversation had with patient regarding social determinants of health. Patient lives at home with 2 family members, they are unable to help her get around. Walker does not help. Patient considering assisted living. Because patient high risk for clinical decompensation, deemed appropriate for inpatient admission. Results were relayed to patient who voiced understanding and patient was agreeable to inpatient admission and management. Patient was admitted to the hospital for further definitive management, and remained hemodynamically stable during entire stay in the emergency department. (above as per ER physician) [facility] Disclaimer: The information contained in this section may have been updated after the patient was seen, as this information can be updated by other users. 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
--- NOTE | 2023-01-20 09:45 | HMH.OTEV ---
OT Inpatient Evaluation Rehab OT IP Evaluation Start: 01/20/23 07:53 Freq: ONCE Status: Active Protocol: [facility]23 09[facility] (Rec: 01/20/23 09:45 [facility] [id number]) Rehab OT IP Assessment Subjective History Pt oriented x 3 on arrival. Pt agreeable to engage in therapy evaluation. Pt admitted via ED on 01/20/23 due to multiple falls with back and hip pain. This is a 72- year-old female with multiple comorbidities presenting with generalized weakness. Patient states that she has been getting generally weak over the past few weeks. Walker is not helping. Having multiple falls per day. Has been seen multiple times in this emergency department over the last week having concern for falls and weakness and inability to function at her normal baseline. Pt currently resides with her sister and brother in law. Pt has been reluctant about completing inpatient short term rehab despite her decline in function. Pt explains before becoming weak she was independent with all ADLs and completed small IADLs (cooking ). However, recently she has been requiring assistance from family with all ADLs. She has been using a walker or a cane during functional transfers due to weakness. Pt has a past medical history of: Acquired cataract Arthropathy of right shoulder Chronic otitis media COPD (chronic obstructive pulmonary disease) with chronic bronchitis Degenerative joint disease ( DJD) of lumbar spine Diabetes Diarrhea
--- NOTE | 2023-01-20 09:49 | HMH.PTEV ---
Physical Therapy Evaluation Rehab PT IP Evaluation Start: 01/19/23 20:55 Freq: ONCE Status: Active Protocol: Document 01/20/23 09:30 [facility] (Rec: 01/20/23 09:48 HW[facility] [id number]) Subjective/History History History Pt is a 72 year old female that presented to [facility] ED on with reports of increasing generalized weakness over the past few weeks. Pt reports that she has had multiple falls at home and has required family assistance to perform daily tasks. Pt denied reports of additional trauma, chest pain, shortness of breath, lower extremity swelling, new or worsening pain, or any other concerns. Pt was admitted for IP management due to acute on chronic debility and failure to thrive. PMH: Acquired cataract, Arthropathy of right shoulder, Chronic otitis media, COPD ( chronic obstructive pulmonary disease) with chronic bronchitis, Degenerative joint disease (DJD) of lumbar spine , Diabetes, Diarrhea, History of cataract, Hyperlipemia, Hypertension, Insulin dependent diabetes mellitus, Neck pain, Onychogryposis, Psoriasis, Rhinitis, Tobacco abuse, Tremor, Type 2 diabetes mellitus, Weight loss, non- intentional Subjective Subjective Pt presents supine in bed asleep, awakes to therapist voice. Pt pleasant and agreeable to therapy initial evaluation. Pt reports she is having knee pain at rest. Pt reports she lives at home with family in a [facility] with [address] [facility]. Pt reports she typically ambulates with a cane but over the past week, she has been using her walker due to
--- NOTE | 2023-01-20 14:26 | CARE MANAGER ---
Patient is unable to ambulate safely with walker at this time, she will require a w/c.
[2023-01-20 14:34] VITALS: BMI 31.4
--- NOTE | 2023-01-20 14:59 | PC.NURSE ---
attempted to contact pt's family member to notify them of DC.
--- NOTE | 2023-01-20 15:01 | HMH.PHAINT1 ---
Pharmacy Intervention Comments: Discharge medications were discussed with patient. -Decreasing dose of primidone and gabapentin -D/C propranolol -Hold atorvastatin will 01/25/23 Supa Graham, PharmD student
--- NOTE | 2023-01-20 15:08 | CARE MANAGER ---
Met with patient to discuss discharge planning. Patient states that she does not want to go to a SNF for therapy, she wants to go home with HH services. I also called and spoke with patient's sister, whom she lives with and she agrees with home with HH. I will order her a w/c and BSC due to mobility issues. Patient Choice signed for [facility], and it was placed on chart.
--- NOTE | 2023-01-21 00:29 | EXP.DC.SUM ---
General Admission date:: 01/19/23 Discharge date: 01/20/23 HPI HPI HPI: This is a 72-year-old female with multiple comorbidities presenting with generalized weakness. Patient states that she has been getting generally weak over the past few weeks. Walker is not helping. Having multiple falls per day. Has been seen multiple times in this emergency department over the last week having concern for falls and weakness and inability to function at her normal baseline. Because of this, numerous conversations have been had with patient regarding inpatient rehab versus assisted living, but patient is adamant against these things. Had 2 falls today, has been evaluated since, but states she still feels so weak that she can barely get around the house, so called an ambulance after talking to her primary care provider to come to the emergency department for further evaluation. No other trauma, chest pain, shortness of breath, lower extremity swelling, new or worsening pain, or any other concerns. History was obtained via conversation with patient and chart review. On arrival, patient hemodynamically stable, alert, oriented x4, appropriate, GCS 15, moving all extremities spontaneously, pupils equal and reactive to light. Full physical exam performed and significant for patient resting at baseline no acute distress. Obese. No evidence of deformity lower extremities. Patient atraumatic overall. Appears chronically ill, but in no acute distress. Mildly hypotensive, but dry mucous membranes and delayed cap refill. Nontachycardic and afebrile. Differential includes acute on chronic debility, failure to thrive, malnutrition, among others. Patient was given fluid bolus for symptomatic management and correction of underlying abnormalities. Workup independently interpreted and significant for downtrending white blood cell count, nonactionable chemistry. Imaging considered, but deemed unnecessary given no other trauma since work-up today, 01/19 in the AM. Given patient presentation, workup, history, this most likely represents acute on chronic debility and failure to thrive. Extensive conversation had with patient regarding social determinants of health. Patient lives at home with 2 family members, they are unable to help her get around. Walker does not help. Patient considering assisted living. Because patient high risk for clinical decompensation, deemed appropriate for inpatient admission. Results were relayed to patient who voiced understanding and patient was agreeable to inpatient admission and management. Patient was admitted to the hospital for further definitive management, and remained hemodynamically stable during entire stay in the emergency department. (above as per ER physician) Hospital Course Hospital Course Hospital Course: The patient had multiple x-rays and CTs which showed no fractures. Dr. Walters planned to adjust her medications and get a PT consultation as well as a care management consultation. The patient continued with pain in her knees and her back. She was seen by physical therapy and it was felt she was appropriate for short-term rehab placement. Case management met with the patient to discuss placement and she did not want to go to a [facility] facility. She wanted to go home with home health services. teaching manager spoke with the patient's sister and she agreed to have her come home with home health. A wheelchair was ordered as was a bedside commode due to mobility issues and she was discharged home. Exam Data for Last 24 hours Vital signs and Labs for Last 24 Hours: Temp Pulse Resp BP Pulse Ox O2 Del Method O2 Flow Rate 99.7 F H 66 18 117/77 93 L Room Air 2 01/20/23 07:51 01/20/23 07:51 01/20/23 07:51 01/20/23 07:51 01/20/23 07:51 01/20/23 15:00 01/19/23 20:00 Laboratory Results - last 24 hr 01/20/23 05:04: POC Glucose 118 H 01/20/23 05:18: WBC 7.4 D, RBC 3.77 L, Hgb 11.2 L, Hct 35.4 L, MCV 93.8,
--- NOTE | 2023-01-23 14:07 | CARE MANAGER ---
Spoke with patient for post-discharge phone interview, we discussed medications and she voiced understanding.
== END 2023-01-20 16:54 | disposition home health service (06) ==
LOC: ER 18:17 → 2ND 18:44
PROVIDERS: Admitting Provider Family Medicine; Emergency Provider Emergency Medicine; PCP Nurse Practitioner; Visit Provider Family Medicine
DX: R53.1 Weakness (principal); R62.7 Adult failure to thrive; R29.6 Repeated falls; E11.36 Type 2 diabetes mellitus with diabetic cataract; J44.9 Chronic obstructive pulmonary disease, unspecified; I10 Essential (primary) hypertension; E78.5 Hyperlipidemia, unspecified; M51.36 Other intervertebral disc degeneration, lumbar region; L40.9 Psoriasis, unspecified; F17.210 Nicotine dependence, cigarettes, uncomplicated
CPT/HCPCS: G0378; 36415; 70450; 71045; 72125; 72170; 73562; 80053; 81001; 82550; 82962; 83036; 84443; 85025; 97162; 97166; 97530; 99285

== ENCOUNTER 2023-02-10 08:00 | Inpatient (IN) | payer MEDICARE, OTHER, SELFPAY ==
[2023-02-10] VITALS (9 sets, daily range): BP systolic 121–137; BP diastolic 57–93; PULSE 70–87; RESP 18–21; TEMP 36.5–36.9; O2SAT 94–98; BMI 34.0; BMI 34.6; BMI 34.5
--- NOTE | 2023-02-10 08:05 | CT_ITS ---
FINAL REPORT CLINICAL HISTORY: LEFT SIDE WEAKNESS COMPARISON: 01/19/2023 FINDINGS: Axial images of the head were obtained without contrast. Coronal reformatted images were also obtained.This study was performed with techniques to keep radiation doses as low as reasonably achievable (ALARA). Individualized dose reduction techniques using automated exposure control or adjustment of mA and/or kV according to the patient's size were employed. Motion artifact decreases the sensitivity. There is no evidence of intracranial hemorrhage or mass. The ventricular size is within normal limits. There is no evidence of shift of the midline structures. No abnormal extra axial fluid collection is identified. No skull abnormality is seen on the bone window images. There are postoperative changes from left mastoidectomy. There is mucosal thickening of a right posterior ethmoid air cell. IMPRESSION: No acute intracranial abnormality. Reviewed, Interpreted and Dictated by Timmy Pagan III, MD Transcribed by Annette Frances Authenticated and [facility]
--- NOTE | 2023-02-10 08:05 | CT_ITS ---
FINAL REPORT TECHNIQUE: Thin section axial CT with IV contrast supplemented with multiplanar reconstruction under CT angiogram protocol. 3-D reconstructions were performed. This study was performed with techniques to keep radiation doses as low as reasonably achievable (ALARA). Individualized dose reduction techniques using automated exposure control or adjustment of mA and/or kV according to the patient''s size were employed. CLINICAL HISTORY: LEFT SIDE WEAKNESS FINDINGS: Motion artifact decreases the sensitivity. The distal vertebral, basilar and distal internal carotid arteries have an unremarkable appearance. No aneurysm is seen. Major intracranial vessels are patent without significant stenosis. IMPRESSION: No significant stenosis identified. Reviewed, Interpreted and Dictated by Timmy Pagan III, MD Transcribed by Annette Frances Authenticated and [facility]
--- NOTE | 2023-02-10 08:05 | CT_ITS ---
FINAL REPORT TECHNIQUE: Thin section axial CT with IV contrast supplemented with multiplanar reconstruction under CT angiogram protocol. This study was performed with techniques to keep radiation doses as low as reasonably achievable (ALARA). Individualized dose reduction techniques using automated exposure control or adjustment of mA and/or kV according to the patient''s size were employed. NASCET criteria was utilized during interpretation. CLINICAL HISTORY: LEFT SIDE WEAKNESS FINDINGS: Aortic arch: Arch shows no significant narrowing. Great vessel origins are widely patent. Right carotid: No significant stenosis is seen of the cervical common or internal carotid artery. Left carotid: No significant stenosis is seen of the cervical common or internal carotid artery. There is calcified plaque of the carotid bulbs bilaterally. Vertebral: Right vertebral artery is dominant. No significant stenosis is present. There is left suprahilar mass or adenopathy measuring 2.9 cm. AP window adenopathy measures up to 1.4 cm. There is left upper lobe consolidation worrisome for neoplastic involvement but could also be inflammatory. IMPRESSION: No significant stenosis. Left suprahilar mass or adenopathy with left upper lobe consolidation worrisome for neoplastic involvement. Ordering physician was notified of findings on 01/31/2023 at 8:47 a.m. Reviewed, Interpreted and Dictated by Timmy Pagan III, MD Transcribed by Annette Frances Authenticated and [facility]
--- NOTE | 2023-02-10 08:14 | HMH.EDGENADL ---
Discharge Plan Disposition Patient Disposition: Admitted Chief Complaint: Neuro Symptoms/Deficit Prescriptions Prescriptions: No Action ipratropium-albuterol 0.5 mg-3 mg(2.5 mg base)/3 mL solution for nebulization 3 ml inhalation QID Qty: 360 1RF Creon 36,000-114,000- 180,000 unit capsule,delayed release(DR/EC) 2 cap PO TID Qty: 360 2RF Rx Instructions: administer with meals and/or snacks diazepam 10 mg tablet 10 mg PO BID PRN (Reason: Anxiety) Qty: 60 2RF metformin 1,000 mg tablet 1,000 mg PO BID Qty: 60 5RF (DME) pen needle, diabetic [BD Ultra-Fine Cortney Pen Needle] 32 gauge x 5/32 needle See Rx Instructions .Route Qty: 100 2RF Rx Instructions: As directed cholecalciferol (vitamin D3) 2,000 UNIT tablet 2,000 unit PO DAILY furosemide 40 mg tablet 40 mg PO DAILYP PRN (Reason: swelling) fenofibrate micronized 134 mg Capsule 134 mg PO DAILY losartan 50 mg Tablet 50 mg PO DAILY propranolol 60 mg Tablet 60 mg PO BID Rx Instructions: 60 mg PO AM AND PM; 30mg (1/2 TAB) PO NOON; spironolactone 25 mg tablet 25 mg PO DAILY Patient Comments: TAKE ONE TABLET BY MOUTH EVERY DAY FOR fluid levothyroxine 25 mcg Tablet 25 mcg PO DAILY pravastatin 80 mg Tablet 80 mg PO DAILY Hold Instructions: Resume on 01/25/23. glimepiride 4 mg tablet 2 mg PO DAILY Patient Comments: TAKE ONE TABLET BY MOUTH TWICE DAILY FOR DIABETES oxycodone 5 mg Tablet 5 mg PO TIDP PRN (Reason: spinal pain) insulin glargine [Basaglar KwikPen U-100 Insulin] 100 unit/mL (3 mL) insulin pen 45 unit SQ HS Patient Comments: INJECT 45 UNITS SUBCUTANEOUSLY EVERY DAY AT BEDTIME amlodipine 5 mg tablet 5 mg PO DAILY Patient Comments: TAKE ONE TABLET BY MOUTH EVERY DAY FOR BLOOD PRESSURE fluticasone propion-salmeterol [Advair Diskus] 500-50 mcg/dose blister with device 1 inh INHALATION DAILY Patient Comments: INHALE 1 PUFF BY MOUTH EVERY DAY FOR allergies gabapentin 800 mg tablet 800 mg PO TID Qty: 90 0RF primidone 50 mg tablet 50 mg PO TID Qty: 90 0RF Referrals Follow up/Referrals: Provider,Referral, [Primary Care Provider] - See instructions Clinical Impressions Clinical Impression: Acute CVA (cerebrovascular accident), Left-sided weakness, Left upper lobe pneumonia Discharge ED Provider: Murali Collins General Adult HPI General Chief complaint: Neuro Symptoms/Deficit Stated complaint: ams Time Seen by Provider: 02/10/23 08:11 History of Present Illness HPI narrative: Patient is a 72-year-old female brought in by EMS for possible stroke. There was a call from her home stating that she woke up at 430 this morning had left upper and left lower extremity weakness and some slurred speech. EMS got to her house and had already called their methods at that time. The patient had a glucose of 45 was given an amp of D50 and had significant improvement in symptoms after the administration of glucose however remains somewhat weak on the left side. The EMS crew and the flight crew met the patient outside of her hospital and determined that the patient may or may not be having a stroke and that they wanted further evaluation in our emergency department and brought her in. On my evaluation patient states that her last known normal was at midnight last night when she went to bed. At that time she had normal strength in her left upper and left lower extremity. Her bedside glucose prior to my evaluation in our ED was 150. She still states she has left upper and left lower extremity weakness. She woke up this way. There is been no time. During today's hours where she had normal strength. She is not on any anticoagulation. She has had no trauma. She has no chest pain shortness of breath fevers chills any other symptoms. Related Data Home Medications Medication Instructions Recorded Confirm
--- NOTE | 2023-02-10 08:25 | XR_ITS ---
FINAL REPORT CLINICAL HISTORY: abnormal CT neck, left upper lobe mass/adenopathy COMPARISON: CTA neck soft tissue earlier same day FINDINGS: A single portable view of the chest was obtained. The heart size and pulmonary vascularity are within normal limits. The mediastinum is within normal limits. Left upper lobe opacity may represent atelectasis or mass. The bony thorax is intact. IMPRESSION: Left upper lobe opacity may represent atelectasis or mass. Reviewed, Interpreted and Dictated by Timmy Pagan III, MD Transcribed by Hanane Batista Authenticated and . [facility]
--- NOTE | 2023-02-10 08:31 | ECG_ITS ---
APPROVED REPORT Exam: Resting ECG HR:73 bpm ECG Measurements Heart Rate 73 AXES MS 134 P -81 QRSd 75 QRS 56 QT 397 T 64 QTc 422 Conclusion ELECTRONIC ATRIAL PACEMAKER LOW QRS VOLTAGE IN PRECORDIAL LEADS [QRS DEFLECTION < 1.0 mV IN CHEST LEADS] SEPTAL MYOCARDIAL INFARCTION , OF INDETERMINATE AGE [40+ ms Q WAVE IN V1/V2] ABNORMAL ECG UNCONFIRMED REPORT Electronically signed by : Eriberto Leonard MD 02/11/2023 21:03:03
[2023-02-10 08:35] LABS: Basophils % 0.3 % (0.1-2.0); Eosinophils # 0.1 K/mm3 (0.0-0.4); Eosinophils % 1.1 % (0.1-12.0); Hematocrit 34.4 % (37.0-47.0); Hemoglobin 11.1 g/dL (12.2-16.2); Lymphocytes # 1.9 K/mm3 (0.7-4.5); Lymphocytes % 19.5 % (10-50); Mean Corpuscular HGB Conc 32.3 g/dL (31.8-35.4); Mean Corpuscular Hemoglobin 29.6 pg (27.0-31.2); Mean Corpuscular Volume 91.5 fl (81-99); Mean Platelet Volume 8.2 fl (7.4-10.4); Monocytes # 0.5 K/mm3 (0.1-1.0); Monocytes % 4.8 % (1.7-9.3); Neutrophils # 7.1 K/mm3 (1.8-7.8); Neutrophils % 74.3 % (37.0-80.0); Platelet Count 332 K/mm3 (142-424); Red Blood Count 3.76 M/mm3 (4.20-5.40); Red Cell Distribution Width 14.4 % (11.5-17.5); White Blood Count 9.5 K/mm3 (4.8-10.8)
[2023-02-10 08:41] LABS: Chloride 100 mmol/L (98-107); Potassium 4.2 mmoL/L (3.5-5.1); Sodium 133 mmol/L (136-145)
[2023-02-10 08:44] LABS: Alanine Aminotransferase 24 U/L (12-78); Albumin Level 3.1 g/dl (3.5-5.0); Albumin/Globulin Ratio 0.8 (1.1-1.8); Alkaline Phosphatase 127 U/L (38-126); Anion Gap 14.2 mEq/L (5-15); Aspartate Amino Transferase 35 U/L (14-36); Bilirubin,Total 0.4 mg/dl (0.2-1.3); Blood Urea Nitrogen 23 mg/dl (7-17); Calcium 9.3 mg/dl (8.4-10.2); Carbon Dioxide 23 mmol/L (22.0-30.0); Creatinine Clearance Estimated 65 mL/min (50-200); Estimated Glomerular Filt Rate 70 ml/min (>60); GFR (African American) 85 ML/MIN (>60); Globulin 3.8 g/dL (1.3-3.2); Glucose 115 mg/dl (74-100); Total Protein,Serum 6.9 g/dl (6.3-8.2)
[2023-02-10 08:47] LABS: Activated Partial Thrombo Time 26.8 seconds (22.8-30.6); INR 1.04 (0.9-1.1); Prothrombin Time 11.2 seconds (10.1-12.5)
[2023-02-10 08:56] LABS: Troponin I < 0.01 ng/ml (0.00-0.034)
--- NOTE | 2023-02-10 09:02 | PC.NURSE ---
@ 0750 EMS arrived to Ambulance with initial intent of air-lifting to [facility]. However, d/t pt's improvement with D50, EMS made the decision to bring pt into ER. @ 0800 pt received into [facility] ER bed 6. at bedside with staff and Dr. Collins ordered CT Head wo and CT angio head & neck and wanted to forego labs. network technology instructor notified and Padmini Braden RN took pt to CT scan. reviewing pt's med list and chart hx. @ 0820 pt back to room. Collecting labs and completing triage.
--- NOTE | 2023-02-10 09:05 | CA_ITS ---
APPROVED REPORT EXAM: Comprehensive 2D, Doppler, and color-flow Echocardiogram Commercial Subcontractor: TAMIE Baca, RVS Ht: 5 ft 1 in Wt: 180lbs BSA: 1.81 BP: 137/93 mmHg Indications: CVA, Infection, smoker, COPD, DM Echo Enhancing Agent Indication: Rule Out Septal Defect Agent(s) / Amount(s) Used: Agitated Saline 20 cc Comments: Evaluation for shunt. Poor acoustics throughout exam 2D Dimensions IVSd 1.07 cm F: 0.6-1.0 LVEF (Visual) 74.50 % PWd 1.05 cm F: 0.6 - 1.0 LA Volume 65.80 mL LVDd 3.86 cm F: 3.9 - 5.3 LA Volume Index 36.35 mL/m2 (M/F) 16-34 LVDs 2.21 cm F: 2.2 - 3.5 Aortic Root 3.01 cm F: 2.7 - 3.3 Left Atrium 3.28 cm F: 2.7 - 3.8 LVOT 1.97 cm (M/F) 1.5-2.5 M-Mode Dimensions LA Diam 3.75 cm (1.9-4.0) Ao Diam 3.26 cm (2.0-3.7) EPSs 0.29 cm TAPSE 2.15 (<1.7) LV Diastology E Decel Time 227.00 (160-240 msec) E/A Ratio 0.77 MED E' 4.50 (< 7 cm/sec) MED A' 9.10 cm/s E'/MED E' Ratio 13.13 (>14) LAT E' 8.20 (<10 cm/sec) LAT A' 12.00 cm/s E/LAT E' Ratio 7.21 (>14) Aortic Valve LVOT Max 133.00 (70-110 cm/s) LVOT VTI 25.78 cm AoV Peak Grant. 157.00 (50-130 cm/s) AO Peak GR. 9.90 mmHg AO Mean GR. 4.90 (<5 mmHg) AO VTI 29.43 (18-25 cm) KAREN (VTI) 2.67 (2.5-4.5 cm2) Mitral Valve MV A Velocity 77.00 (40-130 cm/s) E/A Ratio 0.77 MV Decel. Time 227.00 (160-240 ms) Pulmonary Valve PV Peak Velocity 151.00 (50-150 cm/s) Tricuspid Valve TR P. Velocity 255.00 cm/s RAP Estimate 10.00 mmHg RVSP 36.00 mmHg Left Ventricle The left ventricle is normal size. The left ventricular systolic function is normal. The left ventricular ejection fraction is within the normal range. There is increased LV wall thickness. There is normal LV segmental wall motion. Diastolic function is indeterminate. LVEF is 60%. Right Ventricle The right ventricle is normal size. The right ventricular systolic function is normal. There is increased RV wall thickness. Atria Left atrium is mildly dilated. Right atrium is mildly dilated. There is no Doppler evidence of interatrial shunt. Administration of agitated saline at rest and with Valsalva was indeterminate due to difficult visualization in the setting of technically difficult study. Aortic Valve The aortic valve is mildly thickened. There is no aortic valvular stenosis. Trace aortic regurgitation. Mitral Valve Mild mitral annular calcification (MAC). The mitral valve leaflets are mildly thickened. No evidence of mitral valve stenosis. Trace mitral regurgitation. Tricuspid Valve The tricuspid valve leaflets are thin and pliable. Mild tricuspid regurgitation. RVSP is 25-30 mmHg. Pulmonic Valve The pulmonary valve is normal in structure. Mild pulmonic regurgitation. Great Vessels The aortic root is normal in size. The ascending aorta is not well visualized. IVC is normal in size and collapses >50% with inspiration. Pericardium There is a small, anterior pericardial effusion. No echo indications of tamponade. Other Information Study Quality: Technically Difficult Conclusion This was a technically difficult study due to poor accoustic windows. Normal biventricular systolic function. Mild biatrial dilation. No significant valvular disease. There is no Doppler evidence of interatrial shunt. Administration of agitated saline (bubble study) at rest and with Valsalva was indeterminate due to difficult visualization in the setting of technically difficult study. Small, anterior pericardial effusion. No echo indications of garcia
--- NOTE | 2023-02-10 09:05 | EXP.HP ---
History of Present Illness *Admission Date: 02/10/23 *Reason for visit:: left sided weakness *History of present illness: Ms. Gonsalez is a 72 year old female with a past medical history of t2dm, htn, hld, copd, cigarette nicotine dependence (0.5-1ppd x 25 years) and familial tremor. She presented to the ED with left sided weakness. Last known normal was last night. She woke up this morning and couldn't get out of bed because of left sided weakness. She denies visual changes, difficulty speaking or difficulty swallowing. She hasn't had fever, chills, shortness of breath, chest pain, abdominal pain, dysuria or diarrhea. She has no history of strokes. At baseline she ambulates with a walker or cane. When ems arrived pt's glucose was found to be low at 45 so an amp of d50w was given. She hasn't had any recent change in her diet or medications. [facility] Disclaimer: The information contained in this section may have been updated after the patient was seen, as this information can be updated by other users. 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 Diabetes Diarrhea History of cataract Hyperlipemia Hypertension Insulin dependent diabetes mellitus Neck pain Onychogryposis Psoriasis Rhinitis Tobacco abuse Tremor Type 2 diabetes mellitus Weight loss, non-intentional Surgical History History of carpal tunnel surgery History of hysterectomy History of knee surgery History of mastoidectomy Family History Diabetes Heart attack Spinal stenosis Hypertension Social History (Updated 02/10/23 @ 11:22 by Salud Pearson RN) Smoking Status: Current every day smoker tobacco type: cigarettes packs per day: 1 pack-years: 65 years smoked: 65 second hand exposure: Yes alcohol intake: former counseling provided: none substance use type: denies use current occupational status: retired Travel in the last 8 weeks: None household members: other housing: house current occupational exposures/hazards: No caffeine: Yes Review of Systems Review of Systems Review of systems:: pertinent systems reviewed and negative unless documented below *Neurologic Comments: weakness of the LUE and LLE Meds Home Medications and Allergies Home Medications Medication Instructions Recorded Confirmed Type metformin 1,000 mg tablet 1,000 mg PO BID Diabetes #60 tabs 09/06/22 02/10/23 Rx glimepiride 4 mg tablet 4 mg PO BID Diabetes 01/19/23 02/10/23 History insulin glargine 100 unit/mL (3 45 unit SQ HS Diabetes 01/19/23 02/10/23 History mL) subcutaneous pen (Basaglar BurkePen U-100 Insulin) levothyroxine 25 mcg tablet 25 mcg PO DAILY thyroid 01/19/23 02/10/23 History losartan 50 mg tablet 50 mg PO DAILY High Blood Pressure 01/19/23 02/10/23 History oxycodone 5 mg tablet 5 mg PO TIDP PRN spinal pain 01/19/23 02/10/23 History propranolol 60 mg tablet 60 mg PO BID High Blood Pressure 01/19/23 02/10/23 History spironolactone 25 mg tablet 25 mg PO DAILY Fluid 01/19/23 02/10/23 History amlodipine 5 mg tablet 5 mg PO DAILY High Blood Pressure 01/20/23 02/10/23 History fluticasone 500 mcg-salmeterol 50 1 inh inhalation DAILY Breathing 01/20/23 02/10/23 History mcg/dose blistr powdr for Problems inhalation (Advair Diskus) gabapentin 800 mg tablet 800 mg PO TID back pain #90 tabs 01/20/23 02/10/23 Rx diazepam 10 mg tablet 10 mg PO BIDP PRN Anxiety 02/10/23 02/10/23 History diclofenac sodium 1 % topical gel 1 ea topical DAILY Pain 02/10/23 02/10/23 History [id number]-[id number]-[id number] 2 cap PO AC fibrosing pancreatitis 02/10/23 02/10/23 History 36,000-114,000-180,000 unit capsule,delay rel (Creon) pen needle, diabetic 32 gauge x
--- NOTE | 2023-02-10 09:15 | PC.NURSE ---
case management called for admission
--- NOTE | 2023-02-10 09:17 | MR_ITS ---
FINAL REPORT CLINICAL HISTORY: LEFT SIDED WEAKNESS r/o stroke COMPARISON: none FINDINGS: Multiplanar MR imaging of the brain was performed without contrast. There is mild age-appropriate atrophy. There are scattered foci of increased T2 signal in the cerebral white matter that have a nonspecific appearance but likely represent mild chronic ischemic/gliotic changes. There is no evidence of intracranial hemorrhage or mass. No abnormal ventricular dilatation is identified. No abnormal extra-axial fluid collection is seen. No abnormality is seen on the diffusion weighted images. The posterior fossa and brainstem are unremarkable. Normal major vessel vascular flow voids are seen. IMPRESSION: Age-appropriate atrophy and mild chronic ischemic/gliotic changes. No acute intracranial abnormality. Reviewed, Interpreted and Dictated by Timmy Pagan III, MD Transcribed by Hanane Batista Authenticated and [facility]
--- NOTE | 2023-02-10 09:30 | PC.NURSE ---
pt to mri per stretcher
--- NOTE | 2023-02-10 09:34 | PC.NURSE ---
pt was cleaned and placed in gown after her purwick did not collect the urine. MRI then at bedside and asking screening questions. I removed her cardiac leads, EKG & cardiac electrodes, and vital sign cords. Pt placed on slider sheet and given 2 warm blankets & pillows for comfort.
--- NOTE | 2023-02-10 09:48 | PC.NURSE ---
attempted to call report, nurse will call back shortly
--- NOTE | 2023-02-10 10:02 | PC.NURSE ---
Called report to Zeyad Jc RN on 2nd floor
--- NOTE | 2023-02-10 10:05 | HMH.PHAINT1 ---
Pharmacy Intervention Comments: MEDICATION RECONCILIATION COMPLETED ON PATIENT USING EXTERNAL FILL HISTORY FROM PHARMACY. -HEATHER FOLEY, ARELID
--- NOTE | 2023-02-10 10:27 | PC.NURSE ---
@ 1015 supervisor sound technician called and stated pt had completed her MRI. Let them know I did call report and we will meet them at room 214. Gill Braden RN is taking pt's clothes, pink- hardcover [employer] , and pt's list of medications and surgeries. She is also collecting 2nd set of blood cultures, and giving Rocephin abx.
[2023-02-10 11:46] LABS: Troponin I < 0.01 ng/ml (0.00-0.034)
--- NOTE | 2023-02-10 11:55 | HMH.SLDYSPHA ---
Speech & Language Evaluation Speech/Language Dysphagia Evaluation Start: 02/10/23 11:47 Freq: ONCE Status: Active Protocol: Document 02/10/23 11:47 MAGGIEMOISES (Rec: 02/10/23 11:55 JONNA [id number]) Dysphagia Assess/Goals/Plan Assessment Date of Evaluation: 02/10/23 Evaluation Type Initial Certification Assessment/Problems CVA per MD order. Does Patient Qualify for Service No Qualify/Failure Comment Based on the clinical observations made during the clinical bedside swallow evaluation, no further skilled speech therapy services are warranted at this time. Recommendations PHYSICIAN CERTIFICATION: The specified therapy services are required, authorized, and reviewed every 30 days. Diet Recommendations Mechanical Soft Liquid Type Recommendations Normal/Thin SL Swallow Guidelines Standard Aspiration Prec. Dysphagia Swallow Precautions/Strategies Sitting Upright (90 deg),Small Bites and Sips,Alternate Liquids/Solids Place Food on Either side of Mouth Plan Pt/Guardian verbally ack understanding Yes of dx/prognosis/goals G -code Required No Education Instructions provided CSE results and diet recommendations discussed with pt, nursing, and care management all of which expressed understanding. Pt/Caregiver able to recall information Able to recall/restate Reinforcement needed No Speech & Language HPI History Present Illness Description of Patient Problem Ms. Gonsalez is a 72-year-old female brought in by EMS for possible stroke. There was a call from her home stating that she woke up at 430 this morning had left upper and left lower extremity weakness and some slurred speech. Last normal functioning of extremeties and clear speech pt reported at midnight. Head CT impressions stated no acute intracranial abnormalities and her brain MRI impressions stated age appropriate atrophy . PMH includes: DM2, COPD, HTN , HLD, DJD of lumbar spine, tremors, hx of cataracts, tobacco abuse for 65 yea
--- NOTE | 2023-02-10 13:26 | CT_ITS ---
FINAL REPORT TECHNIQUE: Axial CT images were performed from the lung apices through the upper abdomen. Coronal reformats were submitted. This study was performed with techniques to keep radiation doses as low as reasonably achievable (ALARA). Individualized dose reduction techniques using automated exposure control or adjustment of mA and/or kV according to the patient's size were employed. CLINICAL HISTORY: SHELLEY mass COMPARISON: 09/08/2020 FINDINGS: There is severe coronary artery calcification. There is AP window adenopathy measuring up to 14 mm. There is a left suprahilar mass or adenopathy measuring 22 mm. Left upper lobe consolidation is identified, likely postobstructive. There is mild bibasilar atelectasis. There is no pleural or pericardial effusion. IMPRESSION: AP window adenopathy and left suprahilar mass or adenopathy worrisome for neoplasm. Left upper lobe consolidation. Findings are all new since prior. Reviewed, Interpreted and Dictated by Timmy Pagan III, MD Transcribed by Annette Frances Authenticated and [facility]
--- NOTE | 2023-02-10 13:26 | CT_ITS ---
FINAL REPORT CLINICAL HISTORY: R sided weakness COMPARISON: 01/19/2023 FINDINGS: Axial CT images of the cervical spine were obtained without contrast. Sagittal and coronal reformatted images were also obtained. This study was performed with techniques to keep radiation doses as low as reasonably achievable (ALARA). Individualized dose reduction techniques using automated exposure control or adjustment of mA and/or kV according to the patient''s size were employed. No fracture is identified. There are multilevel moderate degenerative changes. Multilevel neural foraminal narrowing is identified. There is mild central canal stenosis from C3-4 through C6-7. Findings are stable since prior. IMPRESSION: Multilevel degenerative changes with canal stenosis and neural foraminal narrowing, stable since prior. Reviewed, Interpreted and Dictated by Timmy Pagan III, MD Transcribed by Annette Frances Authenticated and [facility]
--- NOTE | 2023-02-10 13:26 | CT_ITS ---
FINAL REPORT CLINICAL HISTORY: R sided weakness FINDINGS: Axial imaging of the lumbar spine was obtained without contrast. Sagittal and coronal reformatted images were also obtained and reviewed.This study was performed with techniques to keep radiation doses as low as reasonably achievable (ALARA). Individualized dose reduction techniques using automated exposure control or adjustment of mA and/or kV according to the patient's size were employed. There is no fracture. There are moderate degenerative changes. L1-2: An annular bulge is present. Facet arthropathy and osteophytes are present. There is no significant canal stenosis or neural foraminal narrowing. L2-3: An annular bulge is present. Facet arthropathy and osteophytes are present. There is mild bilateral neural foraminal narrowing. L3-4: An annular bulge is present. Facet arthropathy and osteophytes are present. There is severe right and moderate left neural foraminal narrowing. There is bilateral lateral recess stenosis. There is moderate central canal stenosis with an AP diameter of the thecal sac of 5 mm. L4-5: An annular bulge is present. Facet arthropathy and osteophytes are present. There is moderate bilateral neural foraminal narrowing. L5-S1: An annular bulge is present. Facet arthropathy and osteophytes are present. There is moderate bilateral neural foraminal narrowing. There is a 3.6 cm abdominal aortic aneurysm. Multiple gallstones are seen with gallbladder wall thickening. The liver is lobular consistent with cirrhosis. Bilateral adrenal enlargement is seen, may represent adenomas. There are bilateral renal cysts. There is diffuse pancreatic calcification consistent with chronic pancreatitis. There is a right common iliac artery aneurysm measuring 1.8 cm. There is a left common iliac artery aneurysm measuring 1.9 cm. IMPRESSION: Multilevel degenerative change and spondylosis with moderate central canal stenosis at L3-4. Abdominal aortic aneurysm. Cholelithiasis. Other abdominal findings as detailed above. Reviewed, Interpreted and Dictated by Timmy Pagan III, MD Transcribed by Annette Frances Authenticated and [facility]
--- NOTE | 2023-02-10 13:26 | CT_ITS ---
FINAL REPORT CLINICAL HISTORY: R sided weakness FINDINGS: Axial CT images of the thoracic spine were obtained without contrast. Sagittal and coronal reformatted images were also obtained. This study was performed with techniques to keep radiation doses as low as reasonably achievable (ALARA). Individualized dose reduction techniques using automated exposure control or adjustment of mA and/or kV according to the patient''s size were employed. No fracture is identified. There are moderate degenerative changes with multilevel osteophytes. There is no evidence of canal stenosis. There is right paracentral T8-9 disc protrusion which indents the thecal sac. IMPRESSION: Multilevel degenerative changes with a right paracentral T8-9 disc protrusion. Reviewed, Interpreted and Dictated by Timmy Pagan III, MD Transcribed by Annette Frances Authenticated and [facility]
--- NOTE | 2023-02-10 13:33 | EXP.EVENT.NO ---
Hospitalist Brief Progress Note The patient's Brain MRI is negative for acute intracranial abnormality. I spoke with her sister with whom she lives, Samira Cooper. The patient has a history of spinal stenosis and chronic neck/back pain; approximately one year ago she received steroid injections to the neck and back. Samira states that the patient was walking with a walker with a few days ago. Currently the strength in her LUE and LLE is 1 to 2/5. I spoke with Dr. Joel and he agreed with plan to obtain stat ct c/t/l spine. Will also order ct chest to better evaluate left suprahilar mass/adenopathy
--- NOTE | 2023-02-10 14:53 | HMH.PTEV ---
Physical Therapy Evaluation Rehab PT IP Evaluation Start: 02/10/23 08:51 Freq: ONCE Status: Active Protocol: Document 02/10/23 13:30 PHORNE (Rec: 02/10/23 14:53 PHORNE [id number]) Subjective/History History History 72 yowf adm to [facility] with poss CVA with MRI now showing no acute changes. She has hx of HTN, HLD, COPD, DM, resting tremors. She reports she lives with her sister and has been feeling weaker with frequent falls x ~ 2 wks. She reports prior to that time, she was independent with all mobility without an AD. Subjective Subjective Pt c/o pain in her back this pm, but did not localize when asked. Rehab PT IP Eval Objective Appearance Patient Behavior Appropriate Patient Orientation Person,Place,Time Difficulty following instructions none Speech Pattern Clear Ambulation Patient Able to Ambulate No Balance Ability to Arise Unable Sitting Balance Steady, safe Standing Balance Unsteady Dynamic Sitting Balance Ability Good Dynamic Standing Balance Ability Poor Transfers Bed Transfer Ability Moderate x 1 (50% assist) Sit to Stand Bed Transfer Ability Maximum x 1 (75% assist) ROM All Extremities PT ROM Status WFL MMT LUE PT MMT ABN Abnormal MMT Grade grossly 2/5 LLE PT MMT ABN Abnormal MMT Grade grossly 2/5 Rehab PT IP prob,goals,plan Problems Date of Evaluation: 02/10/23 PT IP Problems Bed Mobility,Transfers,Gait Rehab Potential Rehab Potential Good Plan PT Intervention Plan Bed Mobility,Transfers,Gait, Therapeutic Exercise PT Plan Frequency Daily Duration LOS Discharge Goals Bed Transfer Ability Minimal x 2 (25% assist) Sit to Stand Chair Transfer Ability Moderate x 2 (50% assist) Ambulation Assistive Device Rolling Walker Ambulation Distance (feet) 5 Discharge Plan PT Discharge Plan Pt is currently most appropriate for rehab placement once medically stable for d/c. Limited use of the L UE and LE currently will hamper any and all
[2023-02-10 15:21] LABS: Troponin I < 0.01 ng/ml (0.00-0.034)
[2023-02-10 16:30] LABS: POC Glucose,Bedside 93 (70-110)
[2023-02-11] VITALS (8 sets, daily range): BP systolic 94–129; BP diastolic 48–62; PULSE 54–72; RESP 16–20; TEMP 36.7–37.4; O2SAT 94–96; BMI 34.3
[2023-02-11 01:34] LABS: POC Glucose,Bedside 173 (70-110)
--- NOTE | 2023-02-11 04:19 | PC.NURSE ---
Pt c/o chronic back pain this shift. Pt medicated PRN per AUG. Pt has had no other complaints this shift. Pt has rested well. slight left sided weakness noted.
[2023-02-11 08:21] LABS: Basophils # 0.1 K/mm3 (0-0.2); Basophils % 0.5 % (0.1-2.0); Eosinophils # 0.2 K/mm3 (0.0-0.4); Eosinophils % 2.1 % (0.1-12.0); Hematocrit 33.5 % (37.0-47.0); Hemoglobin 10.7 g/dL (12.2-16.2); Lymphocytes # 3.2 K/mm3 (0.7-4.5); Lymphocytes % 33.4 % (10-50); Mean Corpuscular HGB Conc 31.9 g/dL (31.8-35.4); Mean Corpuscular Hemoglobin 29.6 pg (27.0-31.2); Mean Corpuscular Volume 92.7 fl (81-99); Mean Platelet Volume 8.3 fl (7.4-10.4); Monocytes # 0.6 K/mm3 (0.1-1.0); Monocytes % 6.1 % (1.7-9.3); Neutrophils # 5.5 K/mm3 (1.8-7.8); Neutrophils % 57.7 % (37.0-80.0); Platelet Count 329 K/mm3 (142-424); Red Blood Count 3.61 M/mm3 (4.20-5.40); Red Cell Distribution Width 14.5 % (11.5-17.5); White Blood Count 9.6 K/mm3 (4.8-10.8)
[2023-02-11 08:22] LABS: Chloride 106 mmol/L (98-107); Sodium 137 mmol/L (136-145)
[2023-02-11 08:23] LABS: Potassium 3.9 mmoL/L (3.5-5.1)
[2023-02-11 08:25] LABS: Blood Urea Nitrogen 20 mg/dl (7-17); Creatinine Clearance Estimated 65 mL/min (50-200); Estimated Glomerular Filt Rate 61 ml/min (>60); GFR (African American) 74 ML/MIN (>60)
[2023-02-11 08:26] LABS: Anion Gap 12.9 mEq/L (5-15); Calcium 9.4 mg/dl (8.4-10.2); Carbon Dioxide 22 mmol/L (22.0-30.0); Glucose 76 mg/dl (74-100)
--- NOTE | 2023-02-11 08:39 | EXP.ACUTE.PN ---
Subjective *Date: 02/11/23 *Time: 08:39 Interval history: Chart reviewed. 72-year-old white female admitted yesterday with left-sided weakness. She states she awoke yesterday morning and had significant left arm weakness and left leg weakness. CT studies did not indicate an etiology. She does have spinal stenosis of the cervical and lumbar areas which is chronic. She does have diabetes. Significantly her sugar was only 45 when she presented in the emergency room. Obviously neurologic symptoms could be tied to this. This morning she does feel better but still reports weakness in the left hand and left leg. She has not been up and about. She was able to eat breakfast. She is not hypoglycemic this morning. Hemoglobin is low but she has shown anemia in the past. Significant on the work-up is the appearance of a possible neoplasm in the left upper lobe. This is a new finding. Patient has smoked for many years. She has chronic bilateral otitis media and bilateral hearing loss. Medical Exam Vital signs and Labs for Last 24 Hours: Vital Signs Temp Pulse Pulse Resp BP BP Pulse Ox 02/11/23 07:58 98.8 F 62 18 118/62 95 02/11/23 06:54 02/11/23 05:00 02/11/23 04:00 98.1 F 72 18 94/48 L 95 02/11/23 04:00 60 02/11/23 00:00 60 02/10/23 20:00 80 02/11/23 03:00 02/11/23 00:40 02/11/23 00:00 98.9 F 58 L 18 103/50 L 95 02/10/23 23:00 02/10/23 21:00 02/10/23 20:00 98.5 F 84 20 131/65 95 02/10/23 18:12 02/10/23 16:59 02/10/23 15:43 80 02/10/23 16:00 97.9 F 77 18 121/57 L 98 02/10/23 12:00 70 02/10/23 14:53 02/10/23 12:57 02/10/23 11:00 02/10/23 11:47 02/10/23 11:09 98.2 F 70 20 128/70 95 02/10/23 09:49 97.8 F 72 21 124/70 08/18/23 09:00 72 18 124/70 96 O2 Del Method 02/11/23 07:58 Room Air 02/11/23 06:54 Room Air 02/11/23 05:00 Room Air 02/11/23 04:00 Room Air 02/11/23 04:00 02/11/23 00:00 02/10/23 20:00 02/11/23 03:00 Room Air 02/11/23 00:40 Room Air 02/11/23 00:00 Room Air 02/10/23 23:00 Room Air 02/10/23 21:00 Room Air 02/10/23 20:00 02/10/23 18:12 Room Air 02/10/23 16:59 Room Air 02/10/23 15:43 02/10/23 16:00 Room Air 02/10/23 12:00 02/10/23 14:53 Room Air 02/10/23 12:57 Nasal Cannula 02/10/23 11:00 Room Air 02/10/23 11:47 Room Air 02/10/23 11:09 Room Air 02/10/23 09:49 Room Air 02/10/23 09:00 Intake and Output 02/10/23 02/11/23 02/11/23 19:59 03:59 11:59 Intake Total 660 / 660 Output Total 0 / 0 0 / 0 0 / 0 Balance 660 / 660 0 / 660 0 / 660 Intake: Intake, Oral Amount 360 / 360 Intake, Total IV Amount 300 / 300 Azithromycin 500 mg In 0.9 % 250 / 250 Sodium Chloride 250 ml @ 250 mls/hr IV ONCE ONE Rx#:[id number] Ceftriaxone Sodium 1 gm In 0.9 50 / 50 % Sodium Chloride 50 ml @ 100 mls/hr IV Q24H [facility] Rx#:[id number] Output: Output, Urine Amount 0 / 0 0 / 0 0 / 0 Other: Number of Unmeasured Voids 1 1 1 Weight 182 lb 15.739 oz 182 lb 1 oz Patient Weight 02/11/23 11:59 Weight 182 lb 1 oz Laboratory Results - last 24 hr 02/10/23 08:25: PT 11.2, INR 1.04, APTT 26.8, Sodium 133 L, Potassium 4.2, Chloride 100, Carbon Dioxide 23, Anion Gap 14.2, BUN 23 H, Creatinine 0.80, Estimated Creat Clear 65, Estimated GFR 70, Est GFR ( Amer) 85, Glucose 115 H, Calcium 9.3, Total Bilirubin 0.4, AST 35, ALT 24, Alkaline Phosphatase 127 H, Troponin I < 0.01, Total Protein 6.9, Albumin 3.1 L, Globulin 3.8 H, Albumin/Globulin Ratio 0.8 L 02/10/23 11:11: Troponin I < 0.01 02/10/23 14:20: Troponin I < 0.01 02/10/23 15:52: POC Glucose 93 02/10/23 20:44: POC Glucose 173 H 02/11/23 07:14: WBC 9.6, RBC 3.61 L, Hgb 10.7 L, Hct 33.5 L, MCV 92.7, MCH 29.6, MCHC 31.9, RDW 14.5, Plt Count 329, MPV 8.3, Neut % (Auto) 57.7, Lymph % (Auto) 33.4, Lucas %
[2023-02-11 08:53] LABS: Thyroid Stimulating Hormone 3.32 uIU/mL (0.465-4.68)
[2023-02-11 10:10] LABS: Hemoglobin A1C 5.3 % (4.0-6.0)
[2023-02-11 17:53] LABS: POC Glucose,Bedside 98 (70-110)
[2023-02-11 17:53] LABS: POC Glucose,Bedside 152 (70-110)
[2023-02-12] VITALS: PULSE 50
[2023-02-12 01:29] LABS: POC Glucose,Bedside 230 (70-110)
[2023-02-12 04:00] VITALS: BP 111/61; PULSE 60; PULSE 78; RESP 16; TEMP 37.2; O2SAT 90; BMI 34.9
--- NOTE | 2023-02-12 07:02 | PC.NURSE ---
pt c/o chronic back pain this shift. pt medicated PRN per AUG. Pt had no other complaints. pt voids per purewick and brief. slight left sided weakness noted. A&OX4
[2023-02-12 08:00] VITALS: BP 125/67; PULSE 60; PULSE 61; RESP 17; TEMP 36.8; O2SAT 98
[2023-02-12 11:51] LABS: POC Glucose,Bedside 195 (70-110)
[2023-02-12 11:51] LABS: POC Glucose,Bedside 224 (70-110)
[2023-02-12 11:51] LABS: POC Glucose,Bedside 253 (70-110)
[2023-02-12 11:59] VITALS: BP 124/56; PULSE 60; RESP 18; TEMP 36.8; O2SAT 97
[2023-02-12 12:26] LABS: Chloride 104 mmol/L (98-107); Potassium 3.9 mmoL/L (3.5-5.1); Sodium 138 mmol/L (136-145)
[2023-02-12 12:27] LABS: Basophils % 0.5 % (0.1-2.0); Eosinophils # 0.2 K/mm3 (0.0-0.4); Eosinophils % 2.3 % (0.1-12.0); Hematocrit 35.7 % (37.0-47.0); Hemoglobin 11.2 g/dL (12.2-16.2); Lymphocytes # 2.4 K/mm3 (0.7-4.5); Lymphocytes % 27.2 % (10-50); Mean Corpuscular HGB Conc 31.5 g/dL (31.8-35.4); Mean Corpuscular Hemoglobin 29.3 pg (27.0-31.2); Mean Corpuscular Volume 93.1 fl (81-99); Mean Platelet Volume 8.2 fl (7.4-10.4); Monocytes # 0.4 K/mm3 (0.1-1.0); Monocytes % 4.9 % (1.7-9.3); Neutrophils # 5.6 K/mm3 (1.8-7.8); Neutrophils % 65.2 % (37.0-80.0); Platelet Count 355 K/mm3 (142-424); Red Blood Count 3.83 M/mm3 (4.20-5.40); Red Cell Distribution Width 14.5 % (11.5-17.5); White Blood Count 8.6 K/mm3 (4.8-10.8)
--- NOTE | 2023-02-12 12:28 | EXP.ACUTE.PN ---
Subjective *Date: 02/12/23 *Time: 12:28 Interval history: She has been stable. She states that she took a few steps with assistance. She still feels weak. She wants to return home. Medical Exam Vital signs and Labs for Last 24 Hours: Vital Signs Temp Pulse Pulse Resp BP Pulse Ox O2 Del Method 02/12/23 11:59 98.2 F 60 18 124/56 L 97 Room Air 02/12/23 11:00 Room Air 02/12/23 09:00 Room Air 02/12/23 08:00 Room Air 02/12/23 08:00 98.3 F 61 17 125/67 98 Room Air 02/12/23 07:00 Room Air 02/12/23 05:00 Room Air 02/12/23 04:00 60 02/12/23 04:00 99.0 F 78 16 111/61 90 L Room Air 02/12/23 03:00 Room Air 02/12/23 01:00 Room Air 02/12/23 00:00 50 L 02/11/23 23:58 99.4 F 58 L 16 110/59 L 94 L Room Air 02/11/23 23:00 Room Air 02/11/23 20:00 60 02/11/23 21:00 Room Air 02/11/23 20:00 Room Air 02/11/23 20:00 99.1 F 68 18 129/60 96 Room Air 02/11/23 18:28 Room Air 02/11/23 16:00 60 02/11/23 17:00 Room Air 02/11/23 15:00 Room Air 02/11/23 16:00 98.1 F 54 L 20 107/60 L 94 L Room Air 02/11/23 13:00 Room Air Intake and Output 02/12/23 02/12/23 02/12/23 03:59 11:59 19:59 Intake Total 240 / 1010 Output Total 200 / 200 Balance 40 / 810 Intake: Intake, Oral Amount 240 / 960 Output: Output, Urine Amount 200 / 200 Other: Number of Unmeasured Voids 1 Weight 184 lb 12.8 oz Laboratory Results - last 24 hr 02/11/23 04:47: POC Glucose 98 02/11/23 11:00: POC Glucose 152 H 02/11/23 15:35: POC Glucose 230 H 02/11/23 20:08: POC Glucose 253 H 02/12/23 05:32: POC Glucose 195 H 02/12/23 10:58: POC Glucose 224 H 02/12/23 11:54: WBC 8.6, RBC 3.83 L, Hgb 11.2 L, Hct 35.7 L, MCV 93.1, MCH 29.3, MCHC 31.5 L, RDW 14.5, Plt Count 355, MPV 8.2, Neut % (Auto) 65.2, Lymph % (Auto) 27.2, [place] % (Auto) 4.9, Eos % (Auto) 2.3, Baso % (Auto) 0.5, Neut # (Auto) 5.6, Lymph # (Auto) 2.4, [place] # (Auto) 0.4, Eos # (Auto) 0.2, Baso # (Auto) 0.0, Sodium 138, Potassium 3.9, Chloride 104 I & O for Labs for Last 24 Hours: Intake & Output 02/10/23 02/11/23 02/12/23 02/13/23 11:59 11:59 11:59 11:59 Intake Total 1140 / 1140 1010 / 1010 Output Total 0 / 0 200 / 200 Balance 1140 / 1140 810 / 810 Weight 183 lb 4 oz 182 lb 1 oz 184 lb 12.8 oz Microbiology Reports for the Last 24 Hours: Microbiology 02/10/23 10:30 Blood Blood Culture - Preliminary NO GROWTH AFTER 48 HOURS 02/10/23 08:57 Blood Blood Culture - Preliminary NO GROWTH AFTER 48 HOURS 02/11/23 11:21 Sputum - Expectorated Sputum Gram Stain - Final Head: Present normocephalic ENT: Present normal oropharynx Neck: Present normal inspection Respiratory: Present decreased breath sounds and CTA bilaterally Cardiac: Present Reg Rate and Rhythm GI: Present soft; Absent tenderness, guarding, rebound or rigidity Rectal (female): Present deferred (female): Present deferred Extremities: Absent edema Skin: Present intact Neuro: Present Weakness (Left hand heel gummer is still a little weaker than the right.), Resting Tremor and Essential Tremor Assessment and Plan *Assessment and plan (1) Left-sided weakness: Status: Acute Category: Medical Code(s): R53.1 - Weakness (2) Hypoglycemia: Status: Acute Category: Medical Code(s): E16.2 - Hypoglycemia, unspecified (3) Left upper lobe pneumonia: Status: Acute Category: Medical Code(s): J18.9 - Pneumonia, unspecified organism (4) Lumbar radiculopathy: Status: Chronic Category: Medical Code(s): M54.16 - Radiculopathy, lumbar region (5) Spinal stenosis: Status: Chronic Category: Medical Code(s): M48.00 - Spinal stenosis, site unspecified (6) Neurogenic claudication: Status: Chronic [place]
[2023-02-12 12:29] LABS: Anion Gap 14.9 mEq/L (5-15); Blood Urea Nitrogen 24 mg/dl (7-17); Calcium 9.3 mg/dl (8.4-10.2); Carbon Dioxide 23 mmol/L (22.0-30.0); Creatinine Clearance Estimated 66 mL/min (50-200); Estimated Glomerular Filt Rate 61 ml/min (>60); GFR (African American) 74 ML/MIN (>60); Glucose 177 mg/dl (74-100)
--- NOTE | 2023-02-13 14:45 | CARE MANAGER ---
Spoke with patient sister for post-discharge phone interview, no issues noted.
--- NOTE | 2023-02-21 22:52 | EXP.DC.SUM ---
General Admission date:: 02/10/23 Discharge date: 02/12/23 HPI HPI HPI: Ms. Gonsalez is a 72 year old female with a past medical history of t2dm, htn, hld, copd, cigarette nicotine dependence (0.5-1ppd x 25 years) and familial tremor. She presented to the ED with left sided weakness. Last known normal was last night. She woke up this morning and couldn't get out of bed because of left sided weakness. She denies visual changes, difficulty speaking or difficulty swallowing. She hasn't had fever, chills, shortness of breath, chest pain, abdominal pain, dysuria or diarrhea. She has no history of strokes. At baseline she ambulates with a walker or cane. When ems arrived pt's glucose was found to be low at 45 so an amp of d50w was given. She hasn't had any recent change in her diet or medications. Hospital Course Hospital Course Hospital Course: The patient was admitted. A CT and CTA of the head/neck showed nothing acute. A brain MRI and echocardiogram with bubble study were ordered. 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 It was felt she would need follow-up with regard to the left suprahilar mass/adenopathy. Her glucose was monitored. The brain MRI was negative for any intracranial abnormality. Dr. Mora spoke with the patient's sister and, due to her history of spinal stenosis and chronic neck/back pain, he spoke with Dr. Joel who agreed to plan to obtain a stat CT of the lumbar spine. A CT of the chest was also ordered to better evaluate the left suprahilar mass/adenopathy. The CT of the lumbar spine showed mild central canal stenosis from C3-4 through C6-7 and moderate canal stenosis from L3-L4. The findings on the CT were incongruence with severe acute left-sided weakness. The hospitalist examined the patient again on the evening of 02/10/2023 and saw her moving both her left upper and left lower extremities. He suspected her previous exams were inaccurate due to poor effort. The CT of her chest revealed AP window adenopathy and left the left suprahilar mass worrisome for neoplasm. There was a left upper lobe consolidation. She was continued on Rocephin. It was felt her neurologic symptoms were tied to her low blood sugar. She did however continue to report weakness in the left hand and left leg. She was able to take a few steps with assistance. She was still weak but wanted to return home by 02/12/2023. It was felt she was stable to be discharged home on cefdinir 300 mg twice daily for a week. She will be scheduled an outpatient follow-up with Dr. Walters and will also need a pulmonary follow-up for the new finding of the mass with adenopathy. Exam Data for Last 24 hours Vital signs and Labs for Last 24 Hours: Temp Pulse Resp BP Pulse Ox O2 Del Method 98.2 F 60 18 124/56 L 97 Room Air 02/12/23 11:59 02/12/23 11:59 02/12/23 11:59 02/12/23 11:59 02/12/23 11:59 02/12/23 11:59 Narrative: Constitutional Constitutional: no acute distress *Routine HEENT Exam Head: Present normocephalic Eye: Present EOMI and PERRL ENT: Present mucous membranes moist *Routine Neck Exam Neck: Present supple; Absent lymphadenopathy *Routine Respiratory Exam Respiratory: Present CTA bilaterally *Routine Cardiovascular Exam Cardiovascular: Present RRR *Routine Abdominal Exam Abdominal: Present soft and normoactive bowel sounds; Absent tenderness *Routine Rectal Exam Rectal:: deferred *Routine Genitalia Exam Genitalia:: deferred *Routine Extremities Exam Extremities: Absent cyanosis, clubbing or edema *Routine Skin Exam Skin: Present warm; Absent rash *Routine Neurological Exam Neurological: Present alert and oriented X3 Comments: strength in LLE is 1 to 2/5 and in the LUE 1 to 2/5. DS: Diagnosis Discharge Diagnosis (1) Left-sided weakness: Status: Acute Code(s): R53.1 - Weakness (2) Hypoglycemia: Status: Resolved Code(s): E16.2 - Hypog
== END 2023-02-12 14:52 | disposition home or self-care (01) | DRG 64 ==
LOC: ER 08:53 → 2ND 10:04
PROVIDERS: Internal Medicine; Admitting Provider Family Medicine; Emergency Provider Student in an Organized Health Care Education/Training Program; PCP Family Medicine; Visit Provider Family Medicine
DX: I63.9 Cerebral infarction, unspecified (principal); J18.9 Pneumonia, unspecified organism; G81.94 Hemiplegia, unspecified affecting left nondominant side; J44.0 Chronic obstructive pulmonary disease with (acute) lower respiratory infection; K86.1 Other chronic pancreatitis; M19.012 Primary osteoarthritis, left shoulder; I10 Essential (primary) hypertension; F17.210 Nicotine dependence, cigarettes, uncomplicated; Z79.4 Long term (current) use of insulin; E11.649 Type 2 diabetes mellitus with hypoglycemia without coma; J44.9 Chronic obstructive pulmonary disease, unspecified; M54.16 Radiculopathy, lumbar region; M48.062 Spinal stenosis, lumbar region with neurogenic claudication
CPT/HCPCS: 36415; 70450; 70496; 70498; 70551; 71045; 71250; 72125; 72128; 72131; 80048; 80053; 82962; 83036; 84443; 84484; 85025; 85610; 85730; 87040; 87070; 87205; 92610; 93005; 93306; 94640; 97163; 97530; 99291; J0456; J0696; Q9967

== ENCOUNTER → 2023-03-22 09:18 | Outpatient (CLI) | payer MEDICARE, OTHER, SELFPAY ==
--- NOTE | 2023-03-22 09:51 | CT_ITS ---
FINAL REPORT TECHNIQUE: Thin section axial images are obtained through the abdomen and pelvis after intravenous contrast. Reconstruction images were obtained from the axial data. Exam was performed using dose reduction techniques. CLINICAL HISTORY: ABNORMAL WEIGHT LOSS, 172 LB WEIGHT LOSS OVER THE PAST 2 YEARS WITHOUT TRYING COMPARISON: September 2022 FINDINGS: LUNG BASES: 7 mm left lower lobe nodule on image 12 was not seen on the prior exam. Heart size is normal. LIVER: Nodular contour consistent with cirrhosis. Small hypodense lesion in the left lobe is stable and favors a cyst. Trace perihepatic fluid. GALLBLADDER/BILIARY SYSTEM: Gallbladder is present. There are gallstones. No biliary dilatation. SPLEEN: Unremarkable. PANCREAS: Multiple pancreatic calcifications consistent with chronic pancreatitis. Dilatation of the pancreatic duct is stable. ADRENALS: Right adrenal gland is unremarkable. There is a stable left adrenal nodule.. SYSTEM: Atrophic left kidney. Bilateral renal hypodensities are favored to represent cysts no hydronephrosis or renal stone. Unremarkable urinary bladder. Prior hysterectomy. GI TRACT: No small bowel obstruction or dilatation. Normal appendix. No acute colon abnormality. Large amount of colonic stool. LYMPH NODES/RETROPERITONEUM/MESENTERY: No lymphadenopathy. No abdominal aortic aneurysm. VASCULAR: Atherosclerotic disease of the abdominal aorta with plaque and an infrarenal abdominal aortic aneurysm. Aneurysm is unchanged at 4.8 cm. OTHER: No health ascites. Remaining soft tissues without acute abnormality. BONES: No acute osseous abnormality. IMPRESSION: Cirrhosis. Chronic pancreatitis. Constipation. Trace perihepatic ascites. 7 mm left lower lobe nodule. Recommend 3-month follow-up. Reviewed, Interpreted and Dictated by Patience Liang MD Transcribed by Cecilio Low Authenticated and . [facility]
[2023-03-22 10:00] LABS: Blood Urea Nitrogen 26 mg/dl (7-17); Estimated Glomerular Filt Rate 61 ml/min (>60); GFR (African American) 74 ML/MIN (>60)
== END ==
PROVIDERS: PCP Family Medicine; Visit Provider Family Medicine
DX: R63.4 Abnormal weight loss (principal)
CPT/HCPCS: 36415; 74177; 82565; 84520; Q9967

== ENCOUNTER 2023-06-15 11:16 | Inpatient (IN) | payer MEDICARE, OTHER, SELFPAY ==
[2023-06-15] VITALS (8 sets, daily range): BP systolic 116–142; BP diastolic 54–70; PULSE 78–95; RESP 16–20; TEMP 36.6–37.3; O2SAT 92–96; BMI 37.8; BMI 35.3
[2023-06-15 11:28] LABS: POC Glucose,Bedside 106 (70-110)
--- NOTE | 2023-06-15 11:40 | CT_ITS ---
FINAL REPORT TECHNIQUE: Axial images were obtained of the cervical spine by computed tomography. Coronal and sagittal reconstruction process performed. This study was performed with techniques to keep radiation doses as low as reasonably achievable (ALARA). Individualized dose reduction techniques using automated exposure control or adjustment of mA and/or kV according to the patient''s size were employed. CLINICAL HISTORY: fall injury COMPARISON: 02/10/2023 FINDINGS: There is significant disc space narrowing at C3-4, C4-5, C5-6, and C6-7 with prominent posterior osteophytes. The facets are properly aligned. There is no fracture. There is spinal canal compromise, most evident on the left at C4-5. There is neural foraminal narrowing bilaterally at C3-4 through C6-7. IMPRESSION: Multilevel degenerative disc disease. Reviewed, Interpreted and Dictated by Marc Mccullough MD Transcribed by Annette Frances Authenticated and [facility]
--- NOTE | 2023-06-15 11:40 | XR_ITS ---
FINAL REPORT CLINICAL HISTORY: fall COMPARISON: 12/30/2022 FINDINGS: Pelvis A single view was obtained. There is no acute fracture or dislocation. There is moderate narrowing of the left hip joint space, similar to previous. The femoral head demonstrates a normal smooth contour. No soft tissue abnormality is identified. IMPRESSION: No acute process. Reviewed, Interpreted and Dictated by Marc Mccullough MD Transcribed by Annette Frances Authenticated and . [facility]
--- NOTE | 2023-06-15 11:40 | CT_ITS ---
FINAL REPORT TECHNIQUE: multiple axial CT images were performed from the foramen magnum to the vertex without enhancement. Sagittal and coronal reformatted images were obtained and reviewed. This study was performed with techniques to keep radiation doses as low as reasonably achievable (ALARA). Individualized dose reduction techniques using automated exposure control or adjustment of mA and/or kV according to the patient's size were employed. CLINICAL HISTORY: fall head injury COMPARISON: 02/10/2023 FINDINGS: The ventricles are enlarged. There is mild atrophy. There is extensive decreased attenuation throughout the deep white matter consistent with chronic ischemia. There is a subtle area of cortical or subcortical increased attenuation in the right parietal lobe well seen on images 37 and 38 of series 3, may represent minimal petechial hemorrhage. This focus measures 1 cm in greatest dimension. No masses are identified. No extra-axial fluid is seen. The sinuses are normal. There is a right frontal scalp hematoma measuring 6 mm. IMPRESSION: Questionable minimal petechial hemorrhage in the right parietal lobe. Ordering physician was notified of findings on 06/15/2023 at 12:33 p.m. Reviewed, Interpreted and Dictated by Marc Mccullough MD Transcribed by Annette Frances Authenticated and [facility]
--- NOTE | 2023-06-15 11:40 | CT_ITS ---
FINAL REPORT TECHNIQUE: Axial images were obtained of the lumbar spine by computed tomography. Coronal and sagittal reconstruction process performed. This study was performed with techniques to keep radiation doses as low as reasonably achievable (ALARA). Individualized dose reduction techniques using automated exposure control or adjustment of mA and/or kV according to the patient''s size were employed. CLINICAL HISTORY: fall lower back pain COMPARISON: 02/10/2023 FINDINGS: No fracture is identified. There is minimal spondylolisthesis of L4 on 5. There is mild anterior osteophyte formation at L4-5 and L5-S1. There is extensive calcification throughout the pancreas consistent with sequela of chronic pancreatitis. There is an aneurysm of the infrarenal abdominal aorta measuring 3.5 x 4.6 cm. There is ectasia of the common iliac arteries measuring 2.2 cm. A large amount of stool is identified. There are benign-appearing cysts in both kidneys. Calcified gallstones are identified in the gallbladder. L1-2: No significant disc bulge or protrusion. L2-3: No significant disc bulge or protrusion. L3-4: No significant disc bulge or protrusion. L4-5: Moderate diffuse disc bulge is present. There is bilateral facet hypertrophy. There is moderate spinal and bilateral neural foraminal compromise. L5-S1: Moderate diffuse disc bulge is present. There is bilateral facet hypertrophy. There is moderate spinal and bilateral neural foraminal compromise. IMPRESSION: Degenerative changes without acute bony abnormality. Multiple other findings as detailed above. Reviewed, Interpreted and Dictated by Marc Mccullough MD Transcribed by Annette Frances Authenticated and [facility]
--- NOTE | 2023-06-15 11:40 | XR_ITS ---
FINAL REPORT CLINICAL HISTORY: fall COMPARISON: 02/10/2023 FINDINGS: SINGLE-VIEW CHEST The heart size is normal. The mediastinum is normal. There is abnormal density in the left suprahilar region with some linear opacity extending to the pleural margin. Findings are concerning for underlying mass. There is no pneumothorax. IMPRESSION: Abnormal density as above. If not already obtained, an infused chest CT is highly recommended. Reviewed, Interpreted and Dictated by Marc Mccullough MD Transcribed by Annette Frances Authenticated and [facility]
--- NOTE | 2023-06-15 11:47 | ECG_ITS ---
APPROVED REPORT Exam: Resting ECG HR:87 bpm ECG Measurements Heart Rate 87 AXES NV 154 P 68 QRSd 94 QRS 61 QT 370 T 73 QTc 414 Conclusion SINUS RHYTHM NORMAL ECG UNCONFIRMED REPORT Electronically signed by : Eriberto Leonard MD 06/15/2023 19:44:03
--- NOTE | 2023-06-15 11:47 | ED_ITS ---
Discharge Plan Disposition Patient Disposition: Admitted Prescriptions Prescriptions: No Action insulin glargine [Gloriaaglpatricia TurkBob U-100 Insulin] 100 unit/mL (3 mL) insulin pen 40 unit SQ HS Patient Comments: INJECT 40 UNITS SUBCUTANEOUSLY EVERY DAY AT BEDTIME oxycodone 5 mg tablet 5 mg PO TIDP PRN (Reason: spinal pain) Qty: 90 0RF Creon 36,000-114,000- 180,000 unit capsule,delayed release(DR/EC) 2 cap PO AC Qty: 90 0RF Rx Instructions: administer with meals and/or snacks primidone 50 mg tablet See Rx Instructions .ROUTE .COMPLEX Qty: 180 3RF Dose Instruction: TAKE TWO TABLETS BY MOUTH THREE TIMES DAILY FOR tremor Rx Instructions: TAKE TWO TABLETS BY MOUTH THREE TIMES DAILY FOR tremor metformin 1,000 mg tablet See Rx Instructions .ROUTE .COMPLEX Qty: 60 5RF Dose Instruction: TAKE ONE TABLET BY MOUTH TWICE DAILY FOR diabetes Rx Instructions: TAKE ONE TABLET BY MOUTH TWICE DAILY FOR diabetes propranolol 60 mg tablet 60 mg PO BID Qty: 75 3RF Rx Instructions: Take one tablet in the morning, one tablet at night and 1/2 tablet at noon. (DME) pen needle, diabetic [BD Ultra-Fine Cortney Pen Needle] 32 gauge x 5/32 needle See Rx Instructions .ROUTE .COMPLEX Qty: 100 2RF Dose Instruction: USE DIRECTED Rx Instructions: USE DIRECTED amlodipine 5 mg tablet See Rx Instructions .ROUTE .COMPLEX Qty: 30 5RF Dose Instruction: TAKE ONE TABLET BY MOUTH EVERY DAY FOR BLOOD PRESSURE Rx Instructions: TAKE ONE TABLET BY MOUTH EVERY DAY FOR BLOOD PRESSURE spironolactone 25 mg tablet See Rx Instructions .ROUTE .COMPLEX Qty: 90 0RF Dose Instruction: TAKE ONE TABLET BY MOUTH EVERY DAY FOR fluid Rx Instructions: TAKE ONE TABLET BY MOUTH EVERY DAY FOR fluid glimepiride 4 mg tablet See Rx Instructions .ROUTE .COMPLEX Qty: 60 1RF Dose Instruction: TAKE ONE TABLET BY MOUTH TWICE DAILY FOR DIABETES Rx Instructions: TAKE ONE TABLET BY MOUTH TWICE DAILY FOR DIABETES gabapentin 800 mg tablet 800 mg PO TID Qty: 90 0RF losartan 50 mg tablet See Rx Instructions .ROUTE .COMPLEX Qty: 90 0RF Dose Instruction: TAKE ONE TABLET BY MOUTH EVERY DAY FOR BLOOD PRESSURE Rx Instructions: TAKE ONE TABLET BY MOUTH EVERY DAY FOR BLOOD PRESSURE pravastatin 80 mg tablet 80 mg PO DAILY Patient Comments: TAKE ONE TABLET BY MOUTH EVERY DAY diclofenac sodium 1 % gel 1 ea TOPICAL DAILY Patient Comments: APPLY TOPICALLY TO THE AFFECTED AREA(S) ONCE DAILY diazepam 10 mg tablet 10 mg PO BIDP PRN (Reason: Anxiety) levothyroxine 25 mcg Tablet 25 mcg PO DAILY fluticasone propion-salmeterol [Advair Diskus] 500-50 mcg/dose blister with device 1 inh INHALATION DAILY Patient Comments: INHALE 1 PUFF BY MOUTH EVERY DAY FOR allergies Referrals Follow up/Referrals: Konstantin Walters MD [Primary Care Provider] - See instructions Clinical Impressions Clinical Impression: Acute hyponatremia, Hematoma of frontal scalp, Minor head injury, Lumbar strain, Falls frequently, Declining functional status, Traumatic intracranial hemorrhage, Lung mass, Anemia, Thrombocytopenia Discharge ED Provider: Murali Collins General Adult HPI General Chief complaint: Weakness Stated complaint: Fall: face & back pain Time Seen by Provider: 06/15/23 11:32 History of Present Illness HPI narrative: Patient is a 72-year-old female presented to the emergency department after a fall. She states that she fell twice yesterday and 1 time today and her sister helped call 911. She states she fell directly onto her head and also is having some lower back pain since the fall. She states she has chronic lower back pain but it was worsened by the fall 100 located in the midline lumbar spinal region. She denies any lower extremity acute weakness after the fall but states that her bilateral lower extremities have been significantly weak leading up to this. She denies any urinary symptoms fevers chills cough or any other symptoms preceding her episode today. She has had chronic disability and lives at home with her sister states that her sister has to help her get her depends on but otherwise she thinks she can care for herself. She denies wanting to be in a care home at the moment. She denies any chest abdomen pelvis or other long bone pain. Denies being on anticoagulants. Related Data Home Medications Medication Instructions Recorded Confirmed levothyroxine 25 mcg tablet 25 mcg PO DAILY thyroid 01/19/23 02/14/23 fluticasone 500 mcg-salmeterol 50 1 inh inhalation DAILY Breathing 01/20/23 02/14/23 mcg/dose blistr powdr for Problems inhalation (Advair Diskus) diazepam 10 mg tablet 10 mg PO BIDP PRN Anxiety 02/10/23 02/14/23 diclofenac sodium 1 % topical gel 1 ea topical DAILY Pain 02/10/23 02/14/23 pravastatin 80 mg tablet 80 mg PO DAILY Cholesterol 02/10/23 02/14/23 insulin glargine 100 unit/mL (3 40 unit SQ HS Diabetes 02/14/23 02/14/23 mL) subcutaneous pen (Basaglar KwikPen U-100 Insulin) Previous Rx's Medication Instructions Recorded oxycodone 5 mg tablet 5 mg PO TIDP PRN spinal pain #90 02/14/23 tabs wlbkju-mcjycrvn-fiwryuk 2 cap PO AC fibrosing pancreatitis 02/28/23 36,000-114,000-180,000 unit #90 caps capsule,delay rel (Creon) primidone 50 mg tablet See Rx Instructions .Route 02/28/23 .COMPLEX #180 tabs metformin 1,000 mg tablet See Rx Instructions .Route 03/01/23 .COMPLEX #60 tabs pen needle, diabetic 32 gauge x #100 ea 03/14/23 (BD Ultra-Fine Cortney Pen Needle) propranolol 60 mg tablet 60 mg PO BID High Blood Pressure 03/14/23 #75 tabs amlodipine 5 mg tablet See Rx Instructions .Route 03/20/23 .COMPLEX #30 tabs spironolactone 25 mg tablet See Rx Instructions .Route 04/12/23 .COMPLEX #90 tabs glimepiride 4 mg tablet See Rx Instructions .Route 05/05/23 .COMPLEX #60 tabs gabapentin 800 mg tablet 800 mg PO TID back pain #90 tabs 05/17/23 losartan 50 mg tablet See Rx Instructions .Route 06/05/23 .COMPLEX #90 tabs Allergies Allergy/AdvReac Type Severity Reaction Status Date / Time aspirin Allergy Severe S-SWELLS-OR Verified 02/14/23 15:40 AL/THROAT gentamicin [Gentamicin] Allergy Intermediate I-HIVES Verified 02/14/23 15:40 [facility] Disclaimer: The information contained in this section may have been updated after the patient was seen, as this information can be updated by other users. 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 Diabetes Diarrhea History of cataract Hyperlipemia Hypertension Insulin dependent diabetes mellitus Neck pain Negative colorectal cancer screening using DNA-based stool test Onychogryposis Psoriasis Rhinitis Sinusitis Tobacco abuse Tremor Type 2 diabetes mellitus Weight loss, non-intentional Surgical History History of carpal tunnel surgery History of hysterectomy History of knee surgery History of mastoidectomy Family History Other Diabetes Heart attack Hypertension Spinal stenosis Social History Smoking Status: Former smoker tobacco type: cigarettes packs per day: 1 years smoked: 64 second hand exposure: Yes alcohol intake: former counseling provided: none substance use type: denies use current occupational status: retired Travel in the last 8 weeks: None household members: other housing: house current occupational exposures/hazards: No caffeine: Yes ROS Obtained: Yes All systems reviewed & no additional complaints except as documented Physical Exam General General appearance: alert and other (Patient has a significant resting tremor throughout her body) Head Head exam: other (There is a right frontal hematoma no evidence of depressed skull fracture sevilla sign raccoon eyes) Neck Neck exam: Absent tenderness (Bilateral extremity strength is normal ) Chest Chest inspection: Present normal inspection; Absent tenderness Respiratory Respiratory exam: Present normal lung sounds bilaterally; Absent respiratory distress Cardiovascular Cardiovascular exam: Present regular rate; Absent tachycardia Abdominal Exam Abdominal exam: Present soft; Absent distention or tenderness Extremities Exam Extremities exam: Present other (Long bones palpated without tenderness) Back Exam Back exam: Present other (Midline lumbar spine tenderness palpation no step-offs or deformities no lower extremity neurovascular compromise) Neurological Exam Neurological exam: Present alert and oriented X3 Medical Decision Making Walt Inquiry Pt receiving controlled substance: No Vital Signs: 06/15/23 11:16 06/15/23 12:30 06/15/23 13:00 Temperature 98.5 F Temperature Source Oral Pulse Rate 87 78 Pulse Rate [Right] 95 H Respiratory Rate 17 20 Blood Pressure 120/66 116/63 Blood Pressure [Left Arm] 122/54 L Blood Pressure Mean 77 86 Blood Pressure Mean [Left Arm] 76 02 Sat by Pulse Oximetry 96 94 L 94 L Oxygen Delivery Method Room Air Room Air Lab Data Lab results reviewed: Yes I reviewed the patient's lab results. Lab Results 12/21/23 11:16: POC Glucose 106 06/15/23 11:32: WBC 7.4, RBC 3.32 L, Hgb 9.6 L, Hct 28.2 L, MCV 85.1, MCH 29.0, MCHC 34.1, RDW 17.0, Plt Count 122 L, MPV 8.9, Neut % (Auto) 66.9, Lymph % (Auto) 23.6, [place] % (Auto) 6.7, Eos % (Auto) 1.8, Baso % (Auto) 1.1, Neut # (Auto) 5.0, Lymph # (Auto) 1.8, [place] # (Auto) 0.5, Eos # (Auto) 0.1, Baso # (Auto) 0.1, Sodium 127 L, Potassium 4.6, Chloride 99, Carbon Dioxide 21 L, Anion Gap 11.6, BUN 27 H, Creatinine 0.80, Estimated Creat Clear 72, Estimated GFR 70, Est GFR ( Amer) 85, Glucose 98, Calcium 10.4 H, Phosphorus 4.0, Magnesium 1.6, Total Bilirubin 0.9, AST 105 H, ALT 40, Alkaline Phosphatase 234 H, Total Creatine Kinase 90, Troponin I < 0.01, Total Protein 7.8, Albumin 3.4 L, Globulin 4.4 H, Albumin/Globulin Ratio 0.8 L 06/15/23 12:50: Urine Color Yellow, Urine Appearance Clear, Urine pH 5.5, Ur Specific [place] 1.020, Urine Protein Negative, Urine Glucose (UA) Negative, Urine Ketones Negative, Urine Blood Negative, Urine Nitrate Negative, Urine Bilirubin Negative, Urine Urobilinogen 1.0, Ur Leukocyte Esterase Negative, Urine RBC Occasional, Urine WBC 3-5, Ur Squamous Epith Cells 10-20, Urine Bacteria Trace 06/15/23 11:32 06/15/23 11:32 Orders (Tests/Meds): ED MEDICATIONS Discontinued Medications Generic Name Dose Route Start Last Admin Trade Name Freq PRN Reason Stop Dose Admin Lactated Ringer's 500 mls @ 999 mls/hr 06/15/23 11:45 06/15/23 11:48 Lactated Ringer's 1000 Ml Bag IV 06/15/23 12:15 999 mls/hr .Q31M GARCIA Administration ORDERS Category Date Time Status CT cervical spine wo con Stat Cat Scan 06/15/23 11:[address] head/brain wo con Stat Cat Scan 06/15/23 11:[address] lumbar spine wo con Stat Cat Scan 06/15/23 11:40 Taken XR chest portable Stat Exams 06/15/23 11:40 Taken XR pelvis 1-2V Stat Exams 06/15/23 11:40 Taken CBC w/Auto Diff [Complete Blood Count Auto Diff] Stat Lab 06/15/23 11:32 Completed CK [Creatine Kinase] Stat Lab 06/15/23 11:32 Completed CMP [Comprehensive Metabolic Panel] Stat Lab 06/15/23 11:32 Completed Magnesium Stat Lab 06/15/23 11:32 Completed POC Glucose,Bedside Routine Lab 06/15/23 11:16 Completed Phosphorous Stat Lab 06/15/23 11:32 Completed Trop I [Troponin I] Stat Lab 06/15/23 11:32 Completed Troponin I Q3H Lab 06/15/23 14:45 Ordered Troponin I Q3H Lab 06/15/23 17:45 Ordered UA [Urinalysis and Microscopic] Stat Lab 06/15/23 12:50 Results Medical Decision Narrative: Patient is a chronically debilitated 72-year-old female with worsening functional status presented with multiple falls lower back pain obvious head injury we will get a CT scan of her head cervical spine lumbar spine and a plain film of her chest and pelvis. I do not suspect any significant organ injuries as she has no chest abdomen pelvis or long bone pain. Will get basic blood work regarding her functional status to make sure there is nothing obvious going on from a metabolic or infectious standpoint. Urinalysis chest x-ray also will be performed for that reason. I had a discussion with her is from my perspective it seems that she needs to either have home health or be in acute rehab or nursing facility but she currently declines that. I will reassess this after her workup. EKG performed which I personally interpreted which shows a ventricular rate of 87 normal axis no acute ischemic changes noted no conduction abnormalities this is a normal and nondiagnostic emergency EKG. Reassessment 1:46 PM patient remains stable on her baseline. Workup is complete which includes worsening anemia thrombocytopenia hyponatremia. All of this also in the setting of a chest x-ray finding on my personal interpretation which shows a left upper lobe lung mass which will need to be looked into further with CT imaging nontraumatic in nature but I am very concerned about malignancy and SIADH etc. All of this likely is contributing to her chronic deconditioning and worsening of her overall functioning status. CT of the head performed I personally interpreted I do not see any acute intracranial abnormalities however radiology read a questionable punctate intraparenchymal hemorrhage nonetheless on a brain injury guidelines standpoint this would be a brain injury guidelines 1 which would not require any neurosurgical intervention consultation or repeat CT imaging for nothing further would be done from the standpoint and if this were in isolation I would be discharging the patient but will not discuss further with neurosurgery or transfer the patient for this reason. The remainder of her traumatic imaging is unremarkable on my personal interpretation as well as radiology reads other than some chronic degenerative changes. This includes a cervical spine and lumbar spine and pelvis. I discussed this with the patient and she is agreeable to be admitted to hospital for further evaluation and treatment and likely physical therapy occupational therapy and goals of care discussion. Critical Care Critical Care Time Critical Care Time: Yes Attestation: On 06/15/23, the high probability of a clinically significant, sudden or life threatening deterioration of the following system(s) required my full and direct attention, intervention and personal management. The time I documented below is in addition to time spent performing reported procedures but includes the following listed in this critical care notation. Total Time Total Critical Care Time: 35
[2023-06-15] MEDS: LACTATED RINGERS 1000ML 500 ML 999 ML IV (11:48)
[2023-06-15 11:52] LABS: Basophils # 0.1 K/mm3 (0-0.2); Basophils % 1.1 % (0.1-2.0); Eosinophils # 0.1 K/mm3 (0.0-0.4); Eosinophils % 1.8 % (0.1-12.0); Hematocrit 28.2 % (37.0-47.0); Hemoglobin 9.6 g/dL (12.2-16.2); Lymphocytes # 1.8 K/mm3 (0.7-4.5); Lymphocytes % 23.6 % (10-50); Mean Corpuscular HGB Conc 34.1 g/dL (31.8-35.4); Mean Corpuscular Volume 85.1 fl (81-99); Mean Platelet Volume 8.9 fl (7.4-10.4); Monocytes # 0.5 K/mm3 (0.1-1.0); Monocytes % 6.7 % (1.7-9.3); Neutrophils % 66.9 % (37.0-80.0); Platelet Count 122 K/mm3 (142-424); Red Blood Count 3.32 M/mm3 (4.20-5.40); White Blood Count 7.4 K/mm3 (4.8-10.8)
[2023-06-15 11:57] LABS: Alanine Aminotransferase 40 U/L (12-78); Albumin Level 3.4 g/dl (3.5-5.0); Albumin/Globulin Ratio 0.8 (1.1-1.8); Alkaline Phosphatase 234 U/L (38-126); Anion Gap 11.6 mEq/L (5-15); Aspartate Amino Transferase 105 U/L (14-36); Bilirubin,Total 0.9 mg/dl (0.2-1.3); Blood Urea Nitrogen 27 mg/dl (7-17); Calcium 10.4 mg/dl (8.4-10.2); Carbon Dioxide 21 mmol/L (22.0-30.0); Chloride 99 mmol/L (98-107); Creatine Kinase 90 U/L (30-135); Creatinine Clearance Estimated 72 mL/min (50-200); Estimated Glomerular Filt Rate 70 ml/min (>60); GFR (African American) 85 ML/MIN (>60); Globulin 4.4 g/dL (1.3-3.2); Glucose 98 mg/dl (74-100); Magnesium 1.6 mg/dl (1.6-2.3); Potassium 4.6 mmoL/L (3.5-5.1); Sodium 127 mmol/L (136-145); Total Protein,Serum 7.8 g/dl (6.3-8.2)
[2023-06-15 12:32] LABS: Troponin I < 0.01 ng/ml (0.00-0.034)
--- NOTE | 2023-06-15 12:33 | PC.NURSE ---
Dr. Collins s/w [facility] radiologist regarding head ct results.
[2023-06-15 12:54] LABS: Microscopic, Urine URINE MICROSCOPIC (MICROSCOPIC)
[2023-06-15 12:58] LABS: Appearance,Urine CLEAR (Clear); Bilirubin,Urine Negative (Negative); Blood, Urine Negative (Negative); Color,Urine YELLOW (Yellow); Glucose,Urine (UA) Negative (Negative); Ketones,Urine Negative (Negative); Leukocyte Esterase,Urine Negative (Negative); Nitrate,Urine Negative (Negative); PH,Urine 5.5 (5.0-8.5); Protein,Urine Negative (Negative)
[2023-06-15 13:20] LABS: Bacteria,Urine Trace /lpf; RBC,Urine Occasional #/hpf (0-3)
--- NOTE | 2023-06-15 13:42 | PC.NURSE ---
changed pt's brief and repositioned in bed
--- NOTE | 2023-06-15 13:42 | PC.NURSE ---
Dr. Collins at bedside
--- NOTE | 2023-06-15 13:51 | PC.NURSE ---
DR CANTRELL SPEAKING WITH DR DIAS
--- NOTE | 2023-06-15 13:52 | PC.NURSE ---
CARE MANAGEMENT NOTIFIED OF ADMISSION
--- NOTE | 2023-06-15 14:00 | PC.NURSE ---
pt's sister, Samira, called to obtain an update on pt. I let her know pt is being admitted and POC. States she will call to check on her later.
--- NOTE | 2023-06-15 14:15 | PC.NURSE ---
Called report to Beck BARRETO on Med/Surg
--- NOTE | 2023-06-15 14:41 | PC.NURSE ---
arrived to floor by stretcher from ED
--- NOTE | 2023-06-15 15:22 | HMH.PHAINT1 ---
Pharmacy Intervention Comments: Home med list verified with patient at bedside and external pharmacy list
[2023-06-15] MEDS: 0.9 % SODIUM CHLORIDE 1000ML 1,000 ML 125 ML IV ×2 (15:45→23:30)
[2023-06-15 16:11] LABS: Troponin I < 0.01 ng/ml (0.00-0.034)
[2023-06-15 16:37] LABS: POC Glucose,Bedside 65 (70-110)
[2023-06-15 19:25] LABS: Troponin I < 0.01 ng/ml (0.00-0.034)
[2023-06-15] MEDS: ALBUTEROL-HFA 90MCG/PUFF INHALER 8GM 2 PUFF IH (20:32)
[2023-06-15] MEDS: OXYCODONE 5MG IMMEDIATE RELEASE TABLET 5 MG PO (20:43)
[2023-06-15] MEDS: GABAPENTIN 800MG TABLET 800 MG PO (20:44)
[2023-06-15 20:49] LABS: Chloride 97 mmol/L (98-107); Potassium 4.9 mmoL/L (3.5-5.1); Sodium 126 mmol/L (136-145)
[2023-06-15 20:52] LABS: Anion Gap 15.9 mEq/L (5-15); Blood Urea Nitrogen 25 mg/dl (7-17); Calcium 9.9 mg/dl (8.4-10.2); Carbon Dioxide 18 mmol/L (22.0-30.0); Creatinine Clearance Estimated 67 mL/min (50-200); Estimated Glomerular Filt Rate 61 ml/min (>60); GFR (African American) 74 ML/MIN (>60); Glucose 188 mg/dl (74-100)
[2023-06-15 23:36] LABS: POC Glucose,Bedside 106 (70-110)
[2023-06-15] MEDS: diazePAM 10MG TABLET 10 MG PO (23:54)
[2023-06-16] MEDS: 0.9 % SODIUM CHLORIDE 1000ML 1,000 ML 125 ML IV (03:09)
[2023-06-16] MEDS: OXYCODONE 5MG IMMEDIATE RELEASE TABLET 5 MG PO ×3 (03:09→16:58)
[2023-06-16 04:00] VITALS: BP 132/59; PULSE 89; RESP 20; TEMP 37.3; O2SAT 90; BMI 37.0
[2023-06-16] MEDS: ALBUTEROL-HFA 90MCG/PUFF INHALER 8GM 2 PUFF IH ×3 (06:05→19:03)
[2023-06-16 06:41] LABS: Basophils # 0.1 K/mm3 (0-0.2); Basophils % 0.7 % (0.1-2.0); Eosinophils # 0.2 K/mm3 (0.0-0.4); Eosinophils % 1.9 % (0.1-12.0); Hematocrit 27.2 % (37.0-47.0); Hemoglobin 9.2 g/dL (12.2-16.2); Lymphocytes # 2.4 K/mm3 (0.7-4.5); Lymphocytes % 29.5 % (10-50); Mean Corpuscular HGB Conc 33.7 g/dL (31.8-35.4); Mean Corpuscular Hemoglobin 28.3 pg (27.0-31.2); Mean Platelet Volume 8.5 fl (7.4-10.4); Monocytes # 0.5 K/mm3 (0.1-1.0); Monocytes % 6.1 % (1.7-9.3); Neutrophils % 61.8 % (37.0-80.0); Platelet Count 127 K/mm3 (142-424); Red Blood Count 3.24 M/mm3 (4.20-5.40); Red Cell Distribution Width 17.3 % (11.5-17.5); White Blood Count 8.1 K/mm3 (4.8-10.8)
[2023-06-16 06:50] LABS: POC Glucose,Bedside 66 (70-110)
[2023-06-16 06:53] LABS: Chloride 99 mmol/L (98-107); Potassium 4.4 mmoL/L (3.5-5.1); Sodium 128 mmol/L (136-145)
[2023-06-16 06:56] LABS: Anion Gap 10.4 mEq/L (5-15); Blood Urea Nitrogen 23 mg/dl (7-17); Carbon Dioxide 23 mmol/L (22.0-30.0); Creatinine Clearance Estimated 70 mL/min (50-200); Estimated Glomerular Filt Rate 61 ml/min (>60); GFR (African American) 74 ML/MIN (>60)
[2023-06-16 06:57] LABS: Calcium 9.8 mg/dl (8.4-10.2); Glucose 62 mg/dl (74-100)
[2023-06-16 08:00] VITALS: BP 148/68; PULSE 87; RESP 19; TEMP 36.6; O2SAT 92; O2SAT 97
[2023-06-16] MEDS: LEVOTHYROXINE 25MCG (0.025MG) TAB 25 MCG PO (08:59)
[2023-06-16] MEDS: AMLODIPINE 5MG TABLET 5 MG PO (08:59)
[2023-06-16] MEDS: IRBESARTAN 75MG TABLET 75 MG PO (08:59)
[2023-06-16] MEDS: GABAPENTIN 800MG TABLET 800 MG PO ×2 (08:59→20:59)
--- NOTE | 2023-06-16 09:01 | EXP.HP ---
History of Present Illness *Admission Date: 06/15/23 *Reason for visit:: Back pain after falling *History of present illness: Ms. Gonsalez is a 72 year old female who looks older than stated age, who is a patient of [facility], followed by Dr. Walters for her primary care. Patient reportedly fell at home twice yesterday. She states she was very weak in both legs and that caused her to fall. She has a history of frequent falls and recently had home health care but was discharged a few weeks ago. She saw Dr. Walters about a week ago and requested home health be resumed but that request was denied by the [facility]. Patient has chronic low back pain and is currently treated with Oxycodone. She states her pain has been much worse over the past few weeks. Patient has had numerous pain management procedures/injections due to low back pain. [facility] Disclaimer: The information contained in this section may have been updated after the patient was seen, as this information can be updated by other users. Medical History Acquired cataract Arthropathy of right shoulder Bursitis of shoulder, right Chronic otitis media COPD (chronic obstructive pulmonary disease) with chronic bronchitis CVA (cerebral vascular accident) Degenerative joint disease (DJD) of lumbar spine Diabetes Diarrhea History of cataract Hyperlipemia Hypertension Insulin dependent diabetes mellitus Neck pain Negative colorectal cancer screening using DNA-based stool test Onychogryposis Psoriasis Rhinitis Sinusitis Tobacco abuse Tremor Type 2 diabetes mellitus Weight loss, non-intentional Surgical History (Updated 06/16/23 @ 13:17 by Roland Muniz MD) H/O esophagogastroduodenoscopy History of ankle surgery History of carpal tunnel surgery History of hysterectomy History of knee surgery History of mastoidectomy S/P epidural steroid injection Family History Other Diabetes Heart attack Hypertension Spinal stenosis Social History (Updated 06/15/23 @ 14:12 by Marimar Cowart RN) Smoking Status: Former smoker tobacco type: cigarettes packs per day: 1 years smoked: 64 second hand exposure: Yes alcohol intake: former counseling provided: none substance use type: denies use current occupational status: retired Travel in the last 8 weeks: None household members: other housing: house current occupational exposures/hazards: No caffeine: Yes Review of Systems Constitutional Constitutional: Denies chills, Denies fever(s) and Reports frequent falls Eyes Eyes: Denies dry eyes ENT Ears, Nose, Mouth, and Throat: Denies bleeding gums *Cardiovascular Cardiovascular: Denies chest pain and Denies dyspnea *Respiratory Respiratory: Denies dyspnea *Gastrointestinal Gastrointestinal: Denies abdominal pain *Genitourinary Genitourinary: Denies dysuria *Musculoskeletal Musculoskeletal: Reports muscle weakness *Neurologic Neurologic: Reports frequent falls and Reports tremor(s) Meds Home Medications and Allergies Home Medications Medication Instructions Recorded Confirmed Type levothyroxine 25 mcg tablet 25 mcg PO DAILY thyroid 01/19/23 06/15/23 History fluticasone 500 mcg-salmeterol 50 1 inh inhalation DAILY Breathing 01/20/23 06/15/23 History mcg/dose blistr powdr for Problems inhalation (Advair Diskus) diazepam 10 mg tablet 10 mg PO BIDP PRN Anxiety 02/10/23 06/15/23 History diclofenac sodium 1 % topical gel 1 ea topical DAILYP PRN Pain 02/10/23 06/15/23 History pravastatin 80 mg tablet 80 mg PO DAILY Cholesterol 02/10/23 06/15/23 History insulin glargine 100 unit/mL (3 40 unit SQ HS Diabetes 02/14/23 06/15/23 History mL) subcutaneous pen (Basaglar KwikPen U-100 Insulin) [id number] 2 cap PO AC fibrosing pancreatitis 02/28/23 06/15/23 Rx 36,000-114,000-180,000 unit #90 caps capsule,delay rel (Creon) pen needle, diabetic 32 gauge x #100 ea 03/14/23 06/15/23 Rx 5/32 (BD Ultra-Fine [place] Pen Needle) gabapentin 800 mg tablet 800 mg PO TID back pain #90 tabs 05/17/23 06/15/23 Rx albuterol sulfate 90 mcg/actuation 2 puff inhalation QID 06/15/23 06/15/23 History aerosol inhaler amlodipine 5 mg tablet 5 mg PO DAILY 06/15/23 06/15/23 History glimepiride 4 mg tablet 4 mg PO DAILY 06/15/23 06/15/23 History losartan 50 mg tablet 50 mg PO DAILY 06/15/23 06/15/23 History metformin 1,000 mg tablet 1,000 mg PO BID 06/15/23 06/15/23 History oxycodone 5 mg tablet 5 mg PO QIDP PRN Pain (Scale Score 06/15/23 06/15/23 History 7-10) primidone 50 mg tablet 100 mg PO TID Tremor(S) 06/15/23 06/15/23 History propranolol 60 mg tablet See Rx Instructions .Route .COMPLEX 06/15/23 06/15/23 History spironolactone 25 mg tablet 25 mg PO DAILY 06/15/23 06/15/23 History New Prescriptions to Start Prescriptions: Allergies Allergy/AdvReac Type Severity Reaction Status Date / Time aspirin Allergy Severe S-SWELLS-OR Verified 02/14/23 15:40 AL/THROAT gentamicin [Gentamicin] Allergy Intermediate I-HIVES Verified 02/14/23 15:40 Exam Data for Last 24 hours Vital signs and Labs for Last 24 Hours: Temp Pulse Resp BP Pulse Ox O2 Del Method 99.2 F 89 20 132/59 L 97 Room Air 06/16/23 04:00 06/16/23 04:00 06/16/23 04:00 06/16/23 04:00 06/16/23 08:00 06/16/23 08:14 Laboratory Results - last 24 hr 06/15/23 11:16: POC Glucose 106 06/15/23 11:32: WBC 7.4, RBC 3.32 L, Hgb 9.6 L, Hct 28.2 L, MCV 85.1, MCH 29.0, MCHC 34.1, RDW 17.0, Plt Count 122 L, MPV 8.9, Neut % (Auto) 66.9, Lymph % (Auto) 23.6, [place] % (Auto) 6.7, Eos % (Auto) 1.8, Baso % (Auto) 1.1, Neut # (Auto) 5.0, Lymph # (Auto) 1.8, [place] # (Auto) 0.5, Eos # (Auto) 0.1, Baso # (Auto) 0.1, Sodium 127 L, Potassium 4.6, Chloride 99, Carbon Dioxide 21 L, Anion Gap 11.6, BUN 27 H, Creatinine 0.80, Estimated Creat Clear 72, Estimated GFR 70, Est GFR ( Amer) 85, Glucose 98, Calcium 10.4 H, Phosphorus 4.0, Magnesium 1.6, Total Bilirubin 0.9, AST 105 H, ALT 40, Alkaline Phosphatase 234 H, Total Creatine Kinase 90, Troponin I < 0.01, Total Protein 7.8, Albumin 3.4 L, Globulin 4.4 H, Albumin/Globulin Ratio 0.8 L 06/15/23 12:50: Urine Color Yellow, Urine Appearance Clear, Urine pH 5.5, Ur Specific [place] 1.020, Urine Protein Negative, Urine Glucose (UA) Negative, Urine Ketones Negative, Urine Blood Negative, Urine Nitrate Negative, Urine Bilirubin Negative, Urine Urobilinogen 1.0, Ur Leukocyte Esterase Negative, Urine RBC Occasional, Urine WBC 3-5, Ur Squamous Epith Cells 10-20, Urine Bacteria Trace 06/15/23 15:20: Troponin I < 0.01 06/15/23 16:28: POC Glucose 65 L 06/15/23 17:50: Troponin I < 0.01 06/15/23 20:20: Sodium 126 L, Potassium 4.9, Chloride 97 L, Carbon Dioxide 18 L, Anion Gap 15.9 H, BUN 25 H, Creatinine 0.90, Estimated Creat Clear 67, Estimated GFR 61, Est GFR ([facility] Amer) 74, Glucose 188 H D, Calcium 9.9 06/15/23 23:30: POC Glucose 106 06/16/23 06:02: WBC 8.1, RBC 3.24 L, Hgb 9.2 L, Hct 27.2 L, MCV 84.0, MCH 28.3, MCHC 33.7, RDW 17.3, Plt Count 127 L, MPV 8.5, Neut % (Auto) 61.8, Lymph % (Auto) 29.5, [place] % (Auto) 6.1, Eos % (Auto) 1.9, Baso % (Auto) 0.7, Neut # (Auto) 5.0, Lymph # (Auto) 2.4, [place] # (Auto) 0.5, Eos # (Auto) 0.2, Baso # (Auto) 0.1, Sodium 128 L, Potassium 4.4, Chloride 99, Carbon Dioxide 23, Anion Gap 10.4, BUN 23 H, Creatinine 0.90, Estimated Creat Clear 70, Estimated GFR 61, Est GFR ([facility] Amer) 74, Glucose 62 L D, Calcium 9.8 06/16/23 06:44: POC Glucose 66 L I & O for Last 24 hours: Intake & Output 06/13/23 06/14/23 06/15/23 06/16/23 23:59 23:59 23:59 23:59 Intake Total 360 / 1840 1480 / 1480 Output Total 0 / 0 0 / 0 Balance 360 / 1840 1480 / 1480 Weight 187 lb 1.983 oz 196 lb 1 oz Constitutional Constitutional: no acute distress *Routine HEENT Exam Head: Present normocephalic and atraumatic Eye: Present EOMI and PERRL ENT: Present mucous membranes moist *Routine Neck Exam Neck: Present supple and full ROM *Routine Respiratory Exam Respiratory: Present CTA bilaterally; Absent rhonchi or wheezes *Routine Cardiovascular Exam Cardiovascular: Present RRR *Routine Abdominal Exam Abdominal: Present soft and normoactive bowel sounds; Absent tenderness *Routine Rectal Exam Rectal:: deferred *Routine Genitalia Exam Genitalia:: deferred *Routine Extremities Exam Extremities: Present edema and joint swelling (bilateral knees with tenderness to palpation); Absent cyanosis or clubbing Routine Back/Spine/Pelvis Exam Back/Spine: Present vertebral tenderness (lumbar spine), muscle spasm and abnormal straight leg raise; Absent CVA tenderness Pelvis: Present SI joint tenderness (bilaterally) and sacral tenderness *Routine Skin Exam Skin: Present intact; Absent erythema Comments: scattered ecchymosis, mainly on arms *Routine Neurological Exam Neurological: Present alert, oriented X3 and sensory deficit (both lower legs and feet) Assessment and Plan *Assessment and plan (1) Falls frequently: Status: Acute Category: Medical Code(s): R29.6 - Repeated falls (2) Generalized weakness: Status: Acute Category: Medical Code(s): R53.1 - Weakness (3) Lumbar radiculopathy: Status: Chronic Category: Medical Code(s): M54.16 - Radiculopathy, lumbar region (4) Spinal stenosis: Status: Chronic Category: Medical Code(s): M48.00 - Spinal stenosis, site unspecified (5) Neurogenic claudication: Status: Chronic Category: Medical Code(s): G95.19 - Other vascular myelopathies (6) Bilateral leg weakness: Status: Acute Category: Medical Code(s): R29.898 - Other symptoms and signs involving the musculoskeletal system (7) Ambulatory dysfunction: Status: Acute Category: Medical Code(s): R26.2 - Difficulty in walking, not elsewhere classified (8) Declining functional status: Status: Acute Category: Medical Code(s): R53.81 - Other malaise (9) Acute hyponatremia: Status: Acute Category: Medical Code(s): E87.1 - Hypo-osmolality and hyponatremia (10) Lung mass: Status: Acute Category: Medical Code(s): R91.8 - Other nonspecific abnormal finding of lung field (11) Anemia: Status: Acute Category: Medical Code(s): D64.9 - Anemia, unspecified (12) Thrombocytopenia: Status: Acute Category: Medical Code(s): D69.6 - Thrombocytopenia, unspecified (13) COPD (chronic obstructive pulmonary disease) with chronic bronchitis: Status: Acute Category: Medical Code(s): J44.9 - Chronic obstructive pulmonary disease, unspecified (14) Insulin dependent diabetes mellitus: Status: Acute Category: Medical (15) Type 2 diabetes mellitus: Status: Acute Category: Medical Code(s): E11.9 - Type 2 diabetes mellitus without complications (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 Category: Medical Code(s): M47.816 - Spondylosis without myelopathy or radiculopathy, lumbar region Plan Patient admitted for further evaluation and management of her frequent falls and back pain. Patient states she is in a lot of pain now. Plan PT and OT evaluation as she seems like she may need placement in a SNF. Lung mass was previously know but does not appear that she has had a CT scan yet. Patient clearly seems to be declining in general.
[2023-06-16] MEDS: POTASSIUM CHLORIDE/D5-0.2%NACL 1,000 ML 75 ML IV ×2 (09:37→23:48)
[2023-06-16] MEDS: KETOROLAC 30MG/ML VIAL 15 MG IM ×3 (09:37→20:58)
--- NOTE | 2023-06-16 10:27 | HMH.OTEV ---
OT Inpatient Evaluation Rehab OT IP Evaluation Start: 06/15/23 20:01 Freq: ONCE Status: Active Protocol: Document 06/16/23 10:23 [email or web address] (Rec: 06/16/23 10:27 [facility] [id number]) Rehab OT IP Assessment Subjective History Pt oriented x3 on arrival. Pt agreeable to engage in therapy evaluation. Pt admitted on 06/15/23 after a fall with back pain. Ms. Gonsalez is a 72 year old female who looks older than stated age, who is a patient of [facility], followed by Dr. Walters for her primary care. Patient reportedly fell at home twice yesterday. She states she was very weak in both legs and that caused her to fall. Patient has chronic low back pain and is currently treated with Oxycodone. She states her pain has been much worse over the past few weeks. Prior to being in the hospital , pt lives with her sister. Pt reports normally she is independent with feeding, dressing, and sponge baths. However, she is dependent upon sister for completion of all IADLs. Pt does use a rolling walker during functional transfers. Subjective I do feel a little weak. Objective Patient Orientation Person,Place,Birthday Right Upper Extremity Gross ROM WFL Left Upper Extremity Gross ROM WFL Bed Mobility bed mobility-scooting,bed mobility - supine/sit Assist Level Maximum x 2 (75% assist) Rehab OT IP prob,goals,plan Problems Date of Evaluation: 06/16/23 OT IP Problems Bed Mobility,Transfers,Balance ,Self care,Safety Rehab Potential Rehab Potential Good Equipment Needs Assistive Devices Rolling / Wheeled Walker Plan OT intervention Plan Bed Mobility,Transfers,Balance ,Self care,Safety,Other OT Plan Frequency BID Duration LOS Discharge Goals Bed Mobility Ability Assistance x1 Sit to Stand Chair Transfer Ability Moderate x 2 (50% assist) Chair Transfer Ability Moderate x 2 (50% assist) Chair Transfer Technique Sit to/from Ambulatory Chair Transfer Assistive Devices Rolling Walker Feeding Ability Assist with Tray Set Up Lower Body Dressing Ability Moderate Assistance Upper Body Dressing Ability Minimal Assistance Bathing Ability Moderate Assistance Performing Toilet Hygiene Ability Moderate Assistance Overall Commode/Toilet Transfer Ability Moderate Assistance Commode/Toilet Transfer Technique Sit to/from Ambulatory Commode/Toilet Transfer Assistive Grab Bars Devices Oral Care Assist Minimal Assistance Decrease in Endurance Yes Discharge Plan OT Discharge Plan Pt will continue to be seen for OT services while at [facility]. Pt would benefit most from short term rehab at SNF following discharged. Continued skilled therapy is very important in order for patient to improve strength, safety, endurance, ADL independence, and functional transfers to reach PLOF. Eval Complexity Eval Charge Codes 59126 - High Complexity PHYSICIAN CERTIFICATION: I certify the specified therapy services for Amy Gonsalez are required, authorized, and reviewed every 30 days.
[2023-06-16] MEDS: FLUTICASONE/SALMETEROL 500/50MCG DISKUS 1 PUFF IH (10:40)
--- NOTE | 2023-06-16 10:42 | HMH.PTEV ---
Physical Therapy Evaluation Rehab PT IP Evaluation Start: 06/15/23 20:01 Freq: ONCE Status: Active Protocol: Document 06/16/23 10:39 OREN (Rec: 06/16/23 10:42 OREN [id number]) Subjective/History History History Patient is a 72 year old female admitted to [facility] secondary to hyponatremia/ lung mass. Ms. Gonsalez is a 72 year old female who looks older than stated age, who is a patient of [facility], followed by Dr. Walters for her primary care. Patient reportedly fell at home twice yesterday. She states she was very weak in both legs and that caused her to fall. Patient lives at home with her sister. Previously required assistance with ADL's/IADL's. Ambulatory with RW for short distances at home. Subjective Subjective I want to go home, not to a [facility]. Rehab PT IP Eval Objective Appearance Patient Behavior Appropriate,Cooperative Patient Orientation Person,Place,Birthday Difficulty following instructions none Speech Pattern Clear,Appropriate Ambulation Patient Able to Ambulate No Balance Ability to Arise Unable Sitting Balance Leans or slides in chair Standing Balance Unsteady Dynamic Sitting Balance Ability Fair Dynamic Standing Balance Ability Poor Transfers Bed Transfer Ability Maximum x 2 (75% assist) Sit to Stand Bed Transfer Ability Maximum x 2 (75% assist) ROM All Extremities PT ROM Status ABN MMT All Extremities PT MMT ABN Abnormal MMT Grade 3/5 Rehab PT IP prob,goals,plan Problems Date of Evaluation: 06/16/23 PT IP Problems Bed Mobility,Transfers,Gait, Balance,Self care,Safety Rehab Potential Rehab Potential Fair Plan PT Intervention Plan Bed Mobility,Transfers,Gait, Balance,Self care,Safety, Therapeutic Exercise PT Plan Frequency BID Duration LOS Discharge Goals Bed Transfer Ability Moderate x 2 (50% assist) Sit to Stand Chair Transfer Ability Moderate x 2 (50% assist) Ambulation Assistive Device Rolling Walker Ambulation Distance (feet) 10 Discharge Plan PT Discharge Plan PT suggest short term placement at SNF for safety concerns prior to returning home. Eval Complexity Eval Charge Codes 32357 - High Complexity PHYSICIAN CERTIFICATION: I certify the specified therapy services for Amy Gonsalez are required, authorized, and reviewed every 30 days.
[2023-06-16 11:41] LABS: POC Glucose,Bedside 173 (70-110)
[2023-06-16] MEDS: LIPASE/PROTEASE/AMYLASE 1 EACH CAPSULE.DR 2 EACH PO ×2 (11:53→16:52)
[2023-06-16 16:00] VITALS: BP 152/73; PULSE 77; RESP 20; TEMP 36.8; O2SAT 94
[2023-06-16] MEDS: humaLOG 100 UNITS/ML 3ML VIAL (SSI) SQ ×2 (16:04→22:23)
[2023-06-16 16:06] LABS: POC Glucose,Bedside 312 (70-110)
[2023-06-16 20:00] VITALS: BP 155/79; PULSE 89; RESP 18; TEMP 36.9; O2SAT 93
[2023-06-16 20:19] LABS: POC Glucose,Bedside 296 (70-110)
[2023-06-16] MEDS: diazePAM 10MG TABLET 10 MG PO (20:59)
[2023-06-16] MEDS: CYCLOBENZAPRINE 10MG TABLET 5 MG PO (20:59)
[2023-06-16] MEDS: POLYETHYLENE GLYCOL 3350 17 GM PACKET PO (23:00)
[2023-06-17] MEDS: OXYCODONE 5MG IMMEDIATE RELEASE TABLET 5 MG PO ×2 (01:14→16:20)
[2023-06-17 04:00] VITALS: BP 156/76; PULSE 88; RESP 18; TEMP 36.7; O2SAT 93; BMI 36.8
[2023-06-17] MEDS: KETOROLAC 30MG/ML VIAL 15 MG IM ×4 (04:15→21:55)
[2023-06-17] MEDS: LIPASE/PROTEASE/AMYLASE 1 EACH CAPSULE.DR 2 EACH PO ×2 (06:22→12:47)
[2023-06-17] MEDS: LEVOTHYROXINE 25MCG (0.025MG) TAB 25 MCG PO (06:22)
[2023-06-17] MEDS: FLUTICASONE/SALMETEROL 500/50MCG DISKUS 1 PUFF IH (06:32)
[2023-06-17] MEDS: ALBUTEROL-HFA 90MCG/PUFF INHALER 8GM 2 PUFF IH ×4 (06:32→19:52)
[2023-06-17] MEDS: humaLOG 100 UNITS/ML 3ML VIAL (SSI) SQ ×3 (07:03→21:56)
[2023-06-17 07:07] LABS: POC Glucose,Bedside 208 (70-110)
[2023-06-17 07:32] LABS: Chloride 98 mmol/L (98-107); Sodium 125 mmol/L (136-145)
[2023-06-17 07:33] LABS: Potassium 4.6 mmoL/L (3.5-5.1)
[2023-06-17 07:36] LABS: Anion Gap 12.6 mEq/L (5-15); Blood Urea Nitrogen 19 mg/dl (7-17); Calcium 9.8 mg/dl (8.4-10.2); Carbon Dioxide 19 mmol/L (22.0-30.0); Creatinine Clearance Estimated 70 mL/min (50-200); Estimated Glomerular Filt Rate 61 ml/min (>60); GFR (African American) 74 ML/MIN (>60); Glucose 202 mg/dl (74-100)
[2023-06-17 07:40] LABS: Basophils # 0.1 K/mm3 (0-0.2); Basophils % 0.8 % (0.1-2.0); Eosinophils # 0.1 K/mm3 (0.0-0.4); Eosinophils % 2.1 % (0.1-12.0); Hematocrit 27.5 % (37.0-47.0); Hemoglobin 9.2 g/dL (12.2-16.2); Lymphocytes # 1.6 K/mm3 (0.7-4.5); Lymphocytes % 23.9 % (10-50); Mean Corpuscular HGB Conc 33.6 g/dL (31.8-35.4); Mean Corpuscular Hemoglobin 28.7 pg (27.0-31.2); Mean Corpuscular Volume 85.5 fl (81-99); Monocytes # 0.5 K/mm3 (0.1-1.0); Monocytes % 6.8 % (1.7-9.3); Neutrophils # 4.5 K/mm3 (1.8-7.8); Neutrophils % 66.4 % (37.0-80.0); Platelet Count 115 K/mm3 (142-424); Red Blood Count 3.21 M/mm3 (4.20-5.40); Red Cell Distribution Width 17.3 % (11.5-17.5); White Blood Count 6.7 K/mm3 (4.8-10.8)
[2023-06-17 08:00] VITALS: BP 153/74; PULSE 83; RESP 18; TEMP 36.6; O2SAT 95; O2SAT 97
--- NOTE | 2023-06-17 08:15 | EXP.ACUTE.PN ---
Subjective *Date: 06/17/23 *Time: 08:19 Interval history: Patient with no new complaints, just woke up, slept better last night. Medical Exam Vital signs and Labs for Last 24 Hours: Vital Signs Temp Pulse Resp BP Pulse Ox O2 Del Method 06/17/23 04:00 98.0 F 88 18 156/76 H 93 L Room Air 06/16/23 21:00 Room Air 06/16/23 20:00 98.5 F 89 18 155/79 H 93 L Room Air 06/16/23 17:12 Room Air 06/16/23 16:00 98.2 F 77 20 152/73 H 94 L Nasal Cannula 06/16/23 15:28 Room Air 06/16/23 13:36 Room Air 06/16/23 13:00 Room Air 06/16/23 11:00 Room Air Intake and Output 06/16/23 06/17/23 06/17/23 23:59 07:59 15:59 Intake Total 270 / 3715 735 / 735 Output Total 0 / 0 1150 / 1150 Balance 270 / 3715 -415 / -415 Intake: Intake, Oral Amount 270 / 1740 360 / 360 Intake, Total IV Amount 375 / 375 Potassium Chloride/D5-0.2%NaCl 375 / 375 1,000 ml @ 75 mls/hr IV . [id number] [facility] Rx#:[id number] Output: Output, Urine Amount 0 / 0 1150 / 1150 Other: Number of Voids 0 Number of Unmeasured Voids 0 Number of Bowel Movements 1 Weight 195 lb 4.8 oz Patient Weight 06/17/23 23:59 Weight 195 lb 4.8 oz Laboratory Results - last 24 hr 06/16/23 11:35: POC Glucose 173 H 06/16/23 16:00: POC Glucose 312 H* 06/16/23 19:57: POC Glucose 296 H 06/17/23 06:20: WBC 6.7, RBC 3.21 L, Hgb 9.2 L, Hct 27.5 L, MCV 85.5, MCH 28.7, MCHC 33.6, RDW 17.3, Plt Count 115 L, MPV 9.0, Neut % (Auto) 66.4, Lymph % (Auto) 23.9, [place] % (Auto) 6.8, Eos % (Auto) 2.1, Baso % (Auto) 0.8, Neut # (Auto) 4.5, Lymph # (Auto) 1.6, [place] # (Auto) 0.5, Eos # (Auto) 0.1, Baso # (Auto) 0.1, Sodium 125 L, Potassium 4.6, Chloride 98, Carbon Dioxide 19 L, Anion Gap 12.6, BUN 19 H, Creatinine 0.90, Estimated Creat Clear 70, Estimated GFR 61, Est GFR ( Amer) 74, Glucose 202 H, Calcium 9.8 06/17/23 06:59: POC Glucose 208 H I & O for Labs for Last 24 Hours: Intake & Output 06/14/23 06/15/23 06/16/23 06/17/23 23:59 23:59 23:59 23:59 Intake Total 360 / 1840 2980 / 3715 735 / 735 Output Total 0 / 0 0 / 0 1150 / 1150 Balance 360 / 1840 2980 / 3715 -415 / -415 Weight 187 lb 1.983 oz 196 lb 1 oz 195 lb 4.8 oz Constitutional: Present no acute distress Respiratory: Present normal respiratory effort Cardiac: Present Reg Rate and Rhythm GI: Present normal bowel sounds; Absent tenderness Extremities: Present normal inspection and full ROM Skin: Present intact; Absent erythema Neuro: Present Resting Tremor, Grossly Intact and moves all extremities Assessment and Plan *Assessment and plan (1) Falls frequently: Status: Acute Category: Medical Code(s): R29.6 - Repeated falls (2) Generalized weakness: Status: Acute Category: Medical Code(s): R53.1 - Weakness (3) Lumbar radiculopathy: Status: Chronic Category: Medical Code(s): M54.16 - Radiculopathy, lumbar region (4) Spinal stenosis: Status: Chronic Category: Medical Code(s): M48.00 - Spinal stenosis, site unspecified (5) Neurogenic claudication: Status: Chronic Category: Medical Code(s): G95.19 - Other vascular myelopathies (6) Bilateral leg weakness: Status: Acute Category: Medical Code(s): R29.898 - Other symptoms and signs involving the musculoskeletal system (7) Ambulatory dysfunction: Status: Acute Category: Medical Code(s): R26.2 - Difficulty in walking, not elsewhere classified (8) Declining functional status: Status: Acute Category: Medical Code(s): R53.81 - Other malaise (9) Acute hyponatremia: Status: Acute Category: Medical Code(s): E87.1 - Hypo-osmolality and hyponatremia (10) Lung mass: Status: Acute Category: Medical Code(s): R91.8 - Other nonspecific abnormal finding of lung field (11) Anemia: Status: Acute Category: Medical Code(s): D64.9 - Anemia, unspecified (12) Thrombocytopenia: Status: Acute Category: Medical Code(s): D69.6 - Thrombocytopenia, unspecified (13) COPD (chronic obstructive pulmonary disease) with chronic bronchitis: Status: Acute Category: Medical Code(s): J44.9 - Chronic obstructive pulmonary disease, unspecified (14) Insulin dependent diabetes mellitus: Status: Acute Category: Medical (15) Type 2 diabetes mellitus: Status: Acute Category: Medical Code(s): E11.9 - Type 2 diabetes mellitus without complications (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 Category: Medical Code(s): M47.816 - Spondylosis without myelopathy or radiculopathy, lumbar region (17) Hyponatremia: Status: Acute Category: Medical Code(s): E87.1 - Hypo-osmolality and hyponatremia Plan Sodium is actually lower today. PT and OT state patient would benefit from SNF placement for rehab.
[2023-06-17] MEDS: POLYETHYLENE GLYCOL 3350 17 GM PACKET PO (08:30)
[2023-06-17] MEDS: IRBESARTAN 75MG TABLET 75 MG PO (08:31)
[2023-06-17] MEDS: GABAPENTIN 800MG TABLET 800 MG PO ×2 (08:31→21:55)
[2023-06-17] MEDS: AMLODIPINE 5MG TABLET 5 MG PO (08:31)
[2023-06-17] MEDS: PRIMIDONE 50MG TABLET 100 MG PO ×3 (09:12→21:54)
[2023-06-17] MEDS: PRAVASTATIN 40MG TAB 80 MG PO (09:40)
[2023-06-17 10:38] LABS: POC Glucose,Bedside 189 (70-110)
[2023-06-17] MEDS: POTASSIUM CHLORIDE/D5-0.2%NACL 1,000 ML 75 ML IV (12:13)
[2023-06-17 15:39] VITALS: BP 150/78; PULSE 85; RESP 18; TEMP 37.2; O2SAT 93
[2023-06-17 16:16] LABS: POC Glucose,Bedside 219 (70-110)
[2023-06-17 20:00] VITALS: BP 137/59; PULSE 81; RESP 16; TEMP 36.6; O2SAT 94
[2023-06-17 20:24] LABS: POC Glucose,Bedside 178 (70-110)
[2023-06-17 22:18] VITALS: BMI 36.8
[2023-06-18] MEDS: POTASSIUM CHLORIDE/D5-0.2%NACL 1,000 ML 75 ML IV (00:25)
[2023-06-18 04:00] VITALS: BP 128/66; PULSE 69; RESP 17; TEMP 36.6; O2SAT 94; BMI 36.8
[2023-06-18] MEDS: KETOROLAC 30MG/ML VIAL 15 MG IM (04:00)
[2023-06-18] MEDS: OXYCODONE 5MG IMMEDIATE RELEASE TABLET 5 MG PO ×2 (04:28→23:50)
[2023-06-18] MEDS: CYCLOBENZAPRINE 10MG TABLET 5 MG PO (04:29)
[2023-06-18 06:10] VITALS: O2SAT 86
[2023-06-18] MEDS: FLUTICASONE/SALMETEROL 500/50MCG DISKUS 1 PUFF IH (06:10)
[2023-06-18] MEDS: ALBUTEROL-HFA 90MCG/PUFF INHALER 8GM 2 PUFF IH ×4 (06:10→20:09)
[2023-06-18 06:48] LABS: POC Glucose,Bedside 186 (70-110)
[2023-06-18] MEDS: humaLOG 100 UNITS/ML 3ML VIAL (SSI) SQ (06:58)
[2023-06-18] MEDS: LIPASE/PROTEASE/AMYLASE 1 EACH CAPSULE.DR 2 EACH PO ×3 (06:58→16:36)
[2023-06-18] MEDS: LEVOTHYROXINE 25MCG (0.025MG) TAB 25 MCG PO (07:13)
[2023-06-18 07:26] LABS: Basophils % 0.6 % (0.1-2.0); Eosinophils # 0.2 K/mm3 (0.0-0.4); Eosinophils % 2.7 % (0.1-12.0); Hematocrit 27.1 % (37.0-47.0); Hemoglobin 8.6 g/dL (12.2-16.2); Lymphocytes # 1.7 K/mm3 (0.7-4.5); Mean Corpuscular HGB Conc 31.8 g/dL (31.8-35.4); Mean Corpuscular Hemoglobin 28.4 pg (27.0-31.2); Mean Corpuscular Volume 89.1 fl (81-99); Mean Platelet Volume 9.6 fl (7.4-10.4); Monocytes # 0.3 K/mm3 (0.1-1.0); Monocytes % 5.7 % (1.7-9.3); Neutrophils # 3.6 K/mm3 (1.8-7.8); Neutrophils % 61.9 % (37.0-80.0); Platelet Count 108 K/mm3 (142-424); Red Blood Count 3.04 M/mm3 (4.20-5.40); Red Cell Distribution Width 17.2 % (11.5-17.5); White Blood Count 5.8 K/mm3 (4.8-10.8)
--- NOTE | 2023-06-18 07:43 | P.PN_ITS ---
Subjective *Date: 06/18/23 *Time: 07:43 Interval history: Patient sleeping quietly, nurse noted low O2 sat overnight and supplemental oxygen was started. Medical Exam Vital signs and Labs for Last 24 Hours: Vital Signs Temp Pulse Resp BP Pulse Ox O2 Del Method 06/18/23 06:10 86 L Room Air 06/18/23 04:00 98 F 69 17 128/66 94 L 06/18/23 01:00 Room Air 06/17/23 23:00 Room Air 06/17/23 21:00 Room Air 06/17/23 20:00 97.9 F 81 16 137/59 L 94 L Room Air 06/17/23 17:42 Room Air 06/17/23 15:39 98.9 F 85 18 150/78 H 93 L Room Air 06/17/23 15:35 Room Air 06/17/23 13:41 Room Air 06/17/23 13:00 Room Air 06/17/23 10:15 Room Air 06/17/23 09:00 Room Air 06/17/23 08:00 97 Room Air 06/17/23 08:00 97.9 F 83 18 153/74 H 95 Room Air Intake and Output 06/17/23 06/17/23 06/18/23 15:59 23:59 07:59 Intake Total 120 / 2085 675 / 2085 555 / 555 Output Total 700 / 700 Balance 120 / 935 675 / 935 -145 / -145 Intake: Intake, Oral Amount 120 / 660 180 / 180 Intake, Total IV Amount 675 / 1425 375 / 375 Potassium Chloride/D5-0.2%NaCl 675 / 1425 375 / 375 1,000 ml @ 75 mls/hr IV . [id number] [facility] Rx#:[id number] Output: Output, Urine Amount 700 / 700 Other: Number of Unmeasured Voids 1 Weight 195 lb 4.109 oz 195 lb 3.2 oz Patient Weight 06/18/23 23:59 Weight 195 lb 3.2 oz Laboratory Results - last 24 hr 06/17/23 06:20: WBC 6.7, RBC 3.21 L, Hgb 9.2 L, Hct 27.5 L, MCV 85.5, MCH 28.7, MCHC 33.6, RDW 17.3, Plt Count 115 L, MPV 9.0, Neut % (Auto) 66.4, Lymph % (Auto) 23.9, [place] % (Auto) 6.8, Eos % (Auto) 2.1, Baso % (Auto) 0.8, Neut # (Auto) 4.5, Lymph # (Auto) 1.6, [place] # (Auto) 0.5, Eos # (Auto) 0.1, Baso # (Auto) 0.1 06/17/23 10:31: POC Glucose 189 H 06/17/23 16:10: POC Glucose 219 H 06/17/23 20:10: POC Glucose 178 H 06/18/23 06:40: POC Glucose 186 H 06/18/23 06:52: WBC 5.8, RBC 3.04 L, Hgb 8.6 L, Hct 27.1 L, MCV 89.1, MCH 28.4, MCHC 31.8, RDW 17.2, Plt Count 108 L, MPV 9.6, Neut % (Auto) 61.9, Lymph % (Auto) 29.0, [place] % (Auto) 5.7, Eos % (Auto) 2.7, Baso % (Auto) 0.6, Neut # (Auto) 3.6, Lymph # (Auto) 1.7, [place] # (Auto) 0.3, Eos # (Auto) 0.2, Baso # (Auto) 0.0 I & O for Labs for Last 24 Hours: Intake & Output 06/15/23 06/16/23 06/17/23 06/18/23 23:59 23:59 23:59 23:59 Intake Total 360 / 1840 2980 / 3715 1530 / 2085 555 / 555 Output Total 0 / 0 0 / 0 1150 / 1150 700 / 700 Balance 360 / 1840 2980 / 3715 380 / 935 -145 / -145 Weight 187 lb 1.983 oz 196 lb 1 oz 195 lb 4.109 oz 195 lb 3.2 oz Constitutional: Present no acute distress Respiratory: Present normal respiratory effort Cardiac: Present Reg Rate and Rhythm GI: Present normal bowel sounds; Absent tenderness Extremities: Present normal inspection and full ROM Skin: Present intact; Absent erythema Neuro: Present Resting Tremor, Grossly Intact and moves all extremities Assessment and Plan *Assessment and plan (1) Falls frequently: Status: Acute Category: Medical Code(s): R29.6 - Repeated falls (2) Generalized weakness: Status: Acute Category: Medical Code(s): R53.1 - Weakness (3) Lumbar radiculopathy: Status: Chronic Category: Medical Code(s): M54.16 - Radiculopathy, lumbar region (4) Spinal stenosis: Status: Chronic Category: Medical Code(s): M48.00 - Spinal stenosis, site unspecified (5) Neurogenic claudication: Status: Chronic Category: Medical Code(s): G95.19 - Other vascular myelopathies (6) Bilateral leg weakness: Status: Acute Category: Medical Code(s): R29.898 - Other symptoms and signs involving the musculoskeletal system (7) Ambulatory dysfunction: Status: Acute Category: Medical Code(s): R26.2 - Difficulty in walking, not elsewhere classified (8) Declining functional status: Status: Acute Category: Medical Code(s): R53.81 - Other malaise (9) Acute hyponatremia: Status: Acute Category: Medical Code(s): E87.1 - Hypo-osmolality and hyponatremia (10) Lung mass: Status: Acute Category: Medical Code(s): R91.8 - Other nonspecific abnormal finding of lung field (11) Anemia: Status: Acute Category: Medical Code(s): D64.9 - Anemia, unspecified (12) Thrombocytopenia: Status: Acute Category: Medical Code(s): D69.6 - Thrombocytopenia, unspecified (13) COPD (chronic obstructive pulmonary disease) with chronic bronchitis: Status: Acute Category: Medical Code(s): J44.9 - Chronic obstructive pulmonary disease, unspecified (14) Insulin dependent diabetes mellitus: Status: Acute Category: Medical (15) Type 2 diabetes mellitus: Status: Acute Category: Medical Code(s): E11.9 - Type 2 diabetes mellitus without complications (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 Category: Medical Code(s): M47.816 - Spondylosis without myelopathy or radiculopathy, lumbar region (17) Hyponatremia: Status: Acute Category: Medical Code(s): E87.1 - Hypo-osmolality and hyponatremia Plan Morning labs pending, continue current treatment.
[2023-06-18 08:00] VITALS: BP 126/59; PULSE 80; RESP 22; TEMP 36.8; O2SAT 96
[2023-06-18 08:54] LABS: Chloride 98 mmol/L (98-107); Sodium 125 mmol/L (136-145)
[2023-06-18 08:57] LABS: Blood Urea Nitrogen 20 mg/dl (7-17); Creatinine Clearance Estimated 70 mL/min (50-200); Estimated Glomerular Filt Rate 61 ml/min (>60); GFR (African American) 74 ML/MIN (>60)
[2023-06-18 08:58] LABS: Calcium 9.7 mg/dl (8.4-10.2); Carbon Dioxide 21 mmol/L (22.0-30.0); Glucose 166 mg/dl (74-100)
--- NOTE | 2023-06-18 09:08 | CT_ITS ---
PROCEDURE INFORMATION: Exam: CTA Chest With Contrast Exam date and time: 06/18/2023 9:37 AM Age: 72 years old Clinical indication: Shortness of breath; Additional info: Hypoxia, lung mass TECHNIQUE: Imaging protocol: Computed tomographic angiography of the chest with contrast. Exam focused on the arteries. 3D rendering (Not supervised by radiologist): MIP and/or 3D reconstructed images were created by the technologist. Radiation optimization: All CT scans at this facility use at least one of these dose optimization techniques: automated exposure control; mA and/or kV adjustment per patient size (includes targeted exams where dose is matched to clinical indication); or iterative reconstruction. Contrast material: ISOAVUE; Contrast volume: 150 ml; Contrast route: INTRAVENOUS (IV); REPORTING DATA: Count of CT and Cardiac NM exams in prior 12 months: This patient has received 15 known CTs and 0 known cardiac nuclear medicine studies in the 12 months prior to the current study. COMPARISON: CT CHEST WO CON 02/10/2023 1:46 PM FINDINGS: Pulmonary arteries: Main pulmonary trunk, right and left pulmonary arteries, interlobar branches and 1st order segmental branches are adequately opacified without filling defects or other evidence of acute pulmonary embolism. However more distal subsegmental branches cannot be adequately assessed due to technical limitations of the study. Aorta: There are scattered atherosclerotic changes of the thoracic aorta. No evidence of aortic aneurysm. Lungs: Lung volumes are decreased. There is interval development of small bibasilar pleural effusions with adjacent mild subsegmental atelectasis. Pleural spaces: Large irregular shaped left suprahilar, upper lobe lung mass and extending to the major fissure significantly increased in size likely malignant with increasing surrounding interstitial/nodular opacities that may be metastatic in nature. Heart: Heart is borderline enlarged. Diffuse calcification of coronary arteries. No significant pericardial effusion. Mediastinal space: There is a fluid within the mid esophagus likely secondary to gastroesophageal reflux. Lymph nodes: Moderate ipsilateral mediastinal and hilar lymphadenopathy likely metastatic in nature progressed from previous exam. Liver: Liver contour consistent with cirrhosis. Gallbladder and bile ducts: Multiple small gallstones in the dependent portion the gallbladder partially visualized. Spleen: Spleen is partially visualized and enlarged. Intraperitoneal space: Interval development of mild ascites within the upper abdomen. Bones/joints: Unremarkable. No acute fracture. Soft tissues: Unremarkable. IMPRESSION: 1. Technically limited but negative CT angiogram of the chest. No evidence of acute pulmonary embolism to major branches of the pulmonary vascular tree. 2. Enlarging left upper lobe lung mass likely malignant in nature with increasing interstitial/nodular opacities left upper lobe likely metastatic in nature. 3. Moderate left sided mediastinal/hilar lymphadenopathy progressed from previous exam likely metastatic in nature. 4. Decreased lung volumes with mild bibasilar subsegmental atelectasis. 5. Cirrhosis, ascites, splenomegaly. 6. Additional nonemergent findings as above.
[2023-06-18] MEDS: SODIUM CHLORIDE 0.9% 10ML SYR (RAD ONLY) 10 ML IV (10:00)
[2023-06-18] MEDS: 0.9 % SODIUM CHLORIDE 50 ML VIAL IV (10:00)
[2023-06-18] MEDS: IOPAMIDOL-370 (76%);100ML BOTTLE 75 ML IV (10:00)
[2023-06-18] MEDS: PRIMIDONE 50MG TABLET 100 MG PO ×3 (10:28→21:53)
[2023-06-18] MEDS: POLYETHYLENE GLYCOL 3350 17 GM PACKET PO (10:28)
[2023-06-18] MEDS: IRBESARTAN 75MG TABLET 75 MG PO (10:29)
[2023-06-18] MEDS: AMLODIPINE 5MG TABLET 5 MG PO (10:29)
[2023-06-18] MEDS: PRAVASTATIN 40MG TAB 80 MG PO (10:29)
[2023-06-18] MEDS: 0.9 % SODIUM CHLORIDE 1000ML 1,000 ML 75 ML IV ×2 (10:30→23:52)
[2023-06-18] MEDS: KETOROLAC 30MG/ML VIAL 15 MG IV ×3 (10:30→21:53)
[2023-06-18] MEDS: FAMOTIDINE 20MG TABLET 20 MG PO ×2 (10:31→21:53)
[2023-06-18] MEDS: ENOXAPARIN 40MG/0.4ML SYRINGE 40 MG SQ (10:31)
[2023-06-18 10:40] VITALS: O2SAT 94
[2023-06-18 12:05] LABS: POC Glucose,Bedside 149 (70-110)
--- NOTE | 2023-06-18 14:42 | PC.NURSE ---
PT IS RESTING IN BED. PT HAS BEEN VERY LETHARGIC THIS SHIFT. PT STATES SHE FEELS VERY TIRED TODAY. O2 SATURATION HAS MAINTAINED 90-95% ON 2 L NC. PT WAS ABLE TO TOLERATE TAKING HER PO MEDS THIS MORNING. TURNED AND REPOSITIONED IN BED. LUNG SOUNDS HAVE SCATTERED WHEEZES/RHONCHI. ABDOMEN SOFT/NON TENDER WITH ACTIVE BOWEL SOUNDS. BRUISING NOTED TO THE RIGHT SIDE OF THE HEAD. WILL CONTINUE TO MONITOR.
[2023-06-18 15:08] VITALS: BP 130/60; PULSE 79; RESP 18; TEMP 36.9; O2SAT 95
[2023-06-18 16:51] LABS: POC Glucose,Bedside 131 (70-110)
[2023-06-18 20:00] VITALS: BP 131/56; PULSE 84; RESP 16; TEMP 37.1; O2SAT 96
[2023-06-18] MEDS: GABAPENTIN 800MG TABLET 800 MG PO (21:53)
[2023-06-18 22:03] LABS: POC Glucose,Bedside 145 (70-110)
[2023-06-19] MEDS: KETOROLAC 30MG/ML VIAL 15 MG IV ×4 (03:15→21:17)
[2023-06-19 04:00] VITALS: BP 129/63; PULSE 82; RESP 16; TEMP 36.4; O2SAT 93; BMI 37.2
[2023-06-19] MEDS: ALBUTEROL-HFA 90MCG/PUFF INHALER 8GM 2 PUFF IH ×4 (06:00→19:01)
[2023-06-19] MEDS: LIPASE/PROTEASE/AMYLASE 1 EACH CAPSULE.DR 2 EACH PO ×3 (06:43→15:29)
[2023-06-19] MEDS: LEVOTHYROXINE 25MCG (0.025MG) TAB 25 MCG PO (06:43)
[2023-06-19] MEDS: FLUTICASONE/SALMETEROL 500/50MCG DISKUS 1 PUFF IH (06:46)
[2023-06-19 06:47] VITALS: O2SAT 90
[2023-06-19 07:07] LABS: POC Glucose,Bedside 166 (70-110)
[2023-06-19 08:00] VITALS: BP 129/78; PULSE 84; RESP 16; TEMP 36.9; O2SAT 96
--- NOTE | 2023-06-19 09:39 | P.PN_ITS ---
Subjective *Date: 06/19/23 *Time: 09:39 Interval history: Patient has continued to decline. She is participating less in her own care. Medical Exam Vital signs and Labs for Last 24 Hours: Vital Signs Temp Pulse Resp BP Pulse Ox O2 Del Method O2 Flow Rate 06/19/23 08:00 98.5 F 84 16 129/78 96 Nasal Cannula 2 06/19/23 06:47 90 L Nasal Cannula 2 06/19/23 05:00 Nasal Cannula 2 06/19/23 04:00 97.5 F L 82 16 129/63 93 L Nasal Cannula 2 06/19/23 03:00 Nasal Cannula 2 06/19/23 01:00 Nasal Cannula 2 06/18/23 23:00 Nasal Cannula 2 06/18/23 21:00 Nasal Cannula 2 06/18/23 20:00 Nasal Cannula 2 06/18/23 20:00 98.7 F 84 16 131/56 L 96 Nasal Cannula 2 06/18/23 17:57 Nasal Cannula 2 06/18/23 17:00 Nasal Cannula 2 06/18/23 16:00 Nasal Cannula 2 06/18/23 15:08 98.4 F 79 18 130/60 95 Nasal Cannula 2 06/18/23 14:58 Nasal Cannula 2 06/18/23 12:53 Nasal Cannula 2 06/18/23 10:40 94 L Room Air 06/18/23 10:58 Nasal Cannula 2 Intake and Output 06/18/23 06/19/23 06/19/23 23:59 07:59 15:59 Intake Total 1748 / 2918 615 / 835 220 / 835 Output Total 300 / 300 Balance 1748 / 2218 315 / 535 220 / 535 Intake: Intake, Oral Amount 240 / 460 220 / 460 Intake, Total IV Amount 1748 / 2498 375 / 375 0.9 % Sodium Chloride 1000ML 1, 174 / 3 375 / 375 000 ml @ 75 mls/hr IV .[id number] [facility] Rx#:[id number] Output: Output, Urine Amount 300 / 300 Other: Weight 197 lb Patient Weight 06/19/23 23:59 Weight 197 lb Laboratory Results - last 24 hr 06/18/23 11:58: POC Glucose 149 H 06/18/23 16:43: POC Glucose 131 H 06/18/23 21:55: POC Glucose 145 H 06/19/23 06:56: POC Glucose 166 H I & O for Labs for Last 24 Hours: Intake & Output 06/16/23 06/17/23 06/18/23 06/19/23 23:59 23:59 23:59 23:59 Intake Total 2980 / 3715 1530 / 2085 2303 / 2918 835 / 835 Output Total 0 / 0 1150 / 1150 700 / 700 300 / 300 Balance 2980 / 3715 380 / 935 1603 / 2218 535 / 535 Weight 196 lb 1 oz 195 lb 4.109 oz 195 lb 3.2 oz 197 lb Constitutional: Present no acute distress Comment:: sleeping, awakens to voice, states she has back pain Respiratory: Present normal respiratory effort Cardiac: Present Reg Rate and Rhythm GI: Present normal bowel sounds; Absent tenderness Extremities: Present normal inspection and full ROM Skin: Present intact; Absent erythema Neuro: Present Resting Tremor, Grossly Intact and moves all extremities Assessment and Plan *Assessment and plan (1) Falls frequently: Status: Acute Category: Medical Code(s): R29.6 - Repeated falls (2) Generalized weakness: Status: Acute Category: Medical Code(s): R53.1 - Weakness (3) Lumbar radiculopathy: Status: Chronic Category: Medical Code(s): M54.16 - Radiculopathy, lumbar region (4) Spinal stenosis: Status: Chronic Category: Medical Code(s): M48.00 - Spinal stenosis, site unspecified (5) Neurogenic claudication: Status: Chronic Category: Medical Code(s): G95.19 - Other vascular myelopathies (6) Bilateral leg weakness: Status: Acute Category: Medical Code(s): R29.898 - Other symptoms and signs involving the musculoskeletal system (7) Ambulatory dysfunction: Status: Acute Category: Medical Code(s): R26.2 - Difficulty in walking, not elsewhere classified (8) Declining functional status: Status: Acute Category: Medical Code(s): R53.81 - Other malaise (9) Acute hyponatremia: Status: Acute Category: Medical Code(s): E87.1 - Hypo-osmolality and hyponatremia (10) Lung mass: Status: Acute Category: Medical Code(s): R91.8 - Other nonspecific abnormal finding of lung field (11) Anemia: Status: Acute Category: Medical Code(s): D64.9 - Anemia, unspecified (12) Thrombocytopenia: Status: Acute Category: Medical Code(s): D69.6 - Thrombocytopenia, unspecified (13) COPD (chronic obstructive pulmonary disease) with chronic bronchitis: Status: Acute Category: Medical Code(s): J44.9 - Chronic obstructive pulmonary disease, unspecified (14) Insulin dependent diabetes mellitus: Status: Acute Category: Medical (15) Type 2 diabetes mellitus: Status: Acute Category: Medical Code(s): E11.9 - Type 2 diabetes mellitus without complications (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 Spoke to patient's sister/acute care occupational therapist. She states patient would want Hospice care and want to be DNR. Plan Hospice consult tomorrow.
[2023-06-19] MEDS: PRIMIDONE 50MG TABLET 100 MG PO ×3 (10:00→21:18)
[2023-06-19] MEDS: ENOXAPARIN 40MG/0.4ML SYRINGE 40 MG SQ (10:00)
[2023-06-19] MEDS: POLYETHYLENE GLYCOL 3350 17 GM PACKET PO (10:00)
[2023-06-19] MEDS: PRAVASTATIN 40MG TAB 80 MG PO (10:00)
[2023-06-19] MEDS: IRBESARTAN 75MG TABLET 75 MG PO (10:00)
[2023-06-19] MEDS: GABAPENTIN 800MG TABLET 800 MG PO ×3 (10:01→21:18)
[2023-06-19] MEDS: FAMOTIDINE 20MG TABLET 20 MG PO ×2 (10:01→21:18)
[2023-06-19] MEDS: AMLODIPINE 5MG TABLET 5 MG PO (10:01)
[2023-06-19 11:32] LABS: POC Glucose,Bedside 162 (70-110)
[2023-06-19] MEDS: 0.9 % SODIUM CHLORIDE 1000ML 1,000 ML 75 ML IV (13:28)
[2023-06-19 16:00] VITALS: BP 122/59; PULSE 81; RESP 16; TEMP 37.3; O2SAT 95
--- NOTE | 2023-06-19 16:54 | PC.NURSE ---
Patient has had intermittent confusion this shift. Patient's vss and no c/o pain outside of scheduled toradol. PAtient has had very little to eat this shift.
[2023-06-19 19:01] VITALS: O2SAT 88
[2023-06-19 19:52] VITALS: BP 126/58; PULSE 84; RESP 24; TEMP 37.4; O2SAT 97
[2023-06-19 20:24] LABS: POC Glucose,Bedside 160 (70-110)
[2023-06-19 20:29] LABS: POC Glucose,Bedside 158 (70-110)
[2023-06-20] MEDS: OXYCODONE 5MG IMMEDIATE RELEASE TABLET 5 MG PO ×2 (02:08→12:59)
[2023-06-20] MEDS: KETOROLAC 30MG/ML VIAL 15 MG IV ×2 (02:08→08:40)
[2023-06-20] MEDS: 0.9 % SODIUM CHLORIDE 1000ML 1,000 ML 75 ML IV (02:09)
[2023-06-20 04:00] VITALS: BP 155/73; PULSE 97; RESP 22; TEMP 36.2; O2SAT 98; BMI 37.6
[2023-06-20] MEDS: ALBUTEROL-HFA 90MCG/PUFF INHALER 8GM 2 PUFF IH ×3 (06:11→14:02)
[2023-06-20] MEDS: FLUTICASONE/SALMETEROL 500/50MCG DISKUS 1 PUFF IH (06:11)
[2023-06-20] MEDS: LEVOTHYROXINE 25MCG (0.025MG) TAB 25 MCG PO (06:43)
[2023-06-20] MEDS: LIPASE/PROTEASE/AMYLASE 1 EACH CAPSULE.DR 2 EACH PO (06:43)
[2023-06-20] MEDS: humaLOG 100 UNITS/ML 3ML VIAL (SSI) SQ (06:57)
[2023-06-20 08:00] VITALS: BP 148/81; PULSE 80; RESP 16; TEMP 36.6; O2SAT 94
--- NOTE | 2023-06-20 08:27 | P.PN_ITS ---
Subjective *Date: 06/20/23 *Time: 08:27 Interval history: No new issues overnight. Medical Exam Vital signs and Labs for Last 24 Hours: Vital Signs Temp Pulse Resp BP Pulse Ox O2 Del Method O2 Flow Rate 06/20/23 07:00 Nasal Cannula 2 06/20/23 05:00 Nasal Cannula 2 06/20/23 04:00 97.2 F L 97 H 22 155/73 H 98 Nasal Cannula 2 06/20/23 01:00 Nasal Cannula 2 06/19/23 23:00 Nasal Cannula 2 06/19/23 21:00 Nasal Cannula 2 06/19/23 19:52 99.4 F 84 24 126/58 L 97 Nasal Cannula 2 06/19/23 19:01 88 L Nasal Cannula 2 06/19/23 16:00 99.1 F 81 16 122/59 L 95 Nasal Cannula 2 Intake and Output 06/19/23 06/20/23 06/20/23 23:59 07:59 15:59 Intake Total 100 / 1430 495 / 495 Output Total 0 / 450 Balance 100 / 980 495 / 495 Intake: Intake, Oral Amount 100 / 680 120 / 120 Intake, Total IV Amount 375 / 375 0.9 % Sodium Chloride 1000ML 1, 375 / 375 000 ml @ 75 mls/hr IV .[id number] [facility] Rx#:[id number] Output: Output, Urine Amount 0 / 450 Other: Number of Voids 1 Number of Unmeasured Voids 1 Number of Urine Attends/Diapers 1 Number of Bowel Movements 1 Weight 199 lb 4.8 oz Patient Weight 06/20/23 23:59 Weight 199 lb 4.8 oz Laboratory Results - last 24 hr 06/19/23 11:24: POC Glucose 162 H 06/19/23 15:28: POC Glucose 158 H 06/19/23 20:18: POC Glucose 160 H I & O for Labs for Last 24 Hours: Intake & Output 06/17/23 06/18/23 06/19/23 06/20/23 23:59 23:59 23:59 23:59 Intake Total 1530 / 2085 2303 / 2918 935 / 1430 495 / 495 Output Total 1150 / 1150 700 / 700 450 / 450 Balance 380 / 935 1603 / 2218 485 / 980 495 / 495 Weight 195 lb 4.109 oz 195 lb 3.2 oz 197 lb 199 lb 4.8 oz Constitutional: Present no acute distress Comment:: sleeping, awakens to voice, states she has back pain Respiratory: Present normal respiratory effort Cardiac: Present Reg Rate and Rhythm GI: Present normal bowel sounds; Absent tenderness Extremities: Present normal inspection and full ROM Skin: Present intact; Absent erythema Neuro: Present Resting Tremor, Grossly Intact and moves all extremities Assessment and Plan *Assessment and plan (1) Falls frequently: Status: Acute Category: Medical Code(s): R29.6 - Repeated falls (2) Generalized weakness: Status: Acute Category: Medical Code(s): R53.1 - Weakness (3) Lumbar radiculopathy: Status: Chronic Category: Medical Code(s): M54.16 - Radiculopathy, lumbar region (4) Spinal stenosis: Status: Chronic Category: Medical Code(s): M48.00 - Spinal stenosis, site unspecified (5) Neurogenic claudication: Status: Chronic Category: Medical Code(s): G95.19 - Other vascular myelopathies (6) Bilateral leg weakness: Status: Acute Category: Medical Code(s): R29.898 - Other symptoms and signs involving the musculoskeletal system (7) Ambulatory dysfunction: Status: Acute Category: Medical Code(s): R26.2 - Difficulty in walking, not elsewhere classified (8) Declining functional status: Status: Acute Category: Medical Code(s): R53.81 - Other malaise (9) Acute hyponatremia: Status: Acute Category: Medical Code(s): E87.1 - Hypo-osmolality and hyponatremia (10) Lung mass: Status: Acute Category: Medical Code(s): R91.8 - Other nonspecific abnormal finding of lung field (11) Anemia: Status: Acute Category: Medical Code(s): D64.9 - Anemia, unspecified (12) Thrombocytopenia: Status: Acute Category: Medical Code(s): D69.6 - Thrombocytopenia, unspecified (13) COPD (chronic obstructive pulmonary disease) with chronic bronchitis: Status: Acute Category: Medical Code(s): J44.9 - Chronic obstructive pulmonary disease, unspecified (14) Insulin dependent diabetes mellitus: Status: Acute Category: Medical (15) Type 2 diabetes mellitus: Status: Acute Category: Medical Code(s): E11.9 - Type 2 diabetes mellitus without complications (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 Category: Medical Code(s): M47.816 - Spondylosis without myelopathy or radiculopathy, lumbar region (17) Hyponatremia: Status: Acute Category: Medical Code(s): E87.1 - Hypo-osmolality and hyponatremia Plan Patient more alert today, spoke to her and care management about Hospice referral today. Patient is agreeable.
[2023-06-20] MEDS: POLYETHYLENE GLYCOL 3350 17 GM PACKET PO (08:39)
--- NOTE | 2023-06-20 08:39 | SW/DCPLANNER ---
Addendum entered by Iliana Castro 06/20/23 11:34: [facility] w/ [facility] can accept this patient. I will update Selene sosa/ [facility] and MD. Original Note: I spoke w/ patient's sister this AM regarding plans once medically stable for discharge. Dr Muniz stated that sister (Samira) expressed to him yesterday that patient is interested in Hospice Care (pt is able to nod head yes to this). Samira also stated that she is not able to care for patient at home any longer. Samira stated that she is interested in Hospice services for this patient w/ LTC at [facility] or [place]. Patient information will be faxed to [facility], [place] and [facility] this AM. Samira expressed an interest in [facility] but I informed her they do not have LTC beds available at this time. Per MD pending discharge plans patient is medically stable for discharge. I will continue to follow up w/ all facilities, patient and her sister.
[2023-06-20] MEDS: AMLODIPINE 5MG TABLET 5 MG PO (08:40)
[2023-06-20] MEDS: IRBESARTAN 75MG TABLET 75 MG PO (08:40)
[2023-06-20] MEDS: GABAPENTIN 800MG TABLET 800 MG PO ×2 (08:40→12:15)
[2023-06-20] MEDS: ENOXAPARIN 40MG/0.4ML SYRINGE 40 MG SQ (08:40)
[2023-06-20] MEDS: PRIMIDONE 50MG TABLET 100 MG PO ×2 (08:40→12:15)
[2023-06-20] MEDS: FAMOTIDINE 20MG TABLET 20 MG PO (08:40)
[2023-06-20] MEDS: PRAVASTATIN 40MG TAB 80 MG PO (12:15)
[2023-06-20 12:20] LABS: POC Glucose,Bedside 165 (70-110)
[2023-06-20 12:20] LABS: POC Glucose,Bedside 184 (70-110)
--- NOTE | 2023-06-20 13:34 | EXP.DC.SUM ---
General Admission date:: 06/15/23 Discharge date: 06/20/23 HPI HPI HPI: Ms. Gonsalez is a 72 year old female who looks older than stated age, who is a patient of [facility], followed by Dr. Walters for her primary care. Patient reportedly fell at home twice yesterday. She states she was very weak in both legs and that caused her to fall. She has a history of frequent falls and recently had home health care but was discharged a few weeks ago. She saw Dr. Walters about a week ago and requested home health be resumed but that request was denied by the [facility] agency. Patient has chronic low back pain and is currently treated with Oxycodone. She states her pain has been much worse over the past few weeks. Patient has had numerous pain management procedures/injections due to low back pain. Hospital Course Hospital Course Hospital Course: Patient was admitted after falling frequently at home. She was incorrectly given D5 1/4 NS for about 24 hours then fluids were changed to D5NS. Chest xray show a mass, CT chest showed mass with local spread in lung and with enlarged perihilar lymph nodes. After discussion with her sister about the likelihood of metastatic lung cancer decision was made to request Hospice care. Patient will be discharged to [facility] with Hospice care. Exam Data for Last 24 hours Vital signs and Labs for Last 24 Hours: Temp Pulse Resp BP Pulse Ox O2 Del Method O2 Flow Rate 97.8 F 80 16 148/81 H 94 L Nasal Cannula 3 06/20/23 08:00 06/20/23 08:00 06/20/23 08:00 06/20/23 08:00 06/20/23 08:00 06/20/23 07:00 06/20/23 08:00 Laboratory Results - last 24 hr 06/19/23 15:28: POC Glucose 158 H 06/19/23 20:18: POC Glucose 160 H 06/20/23 06:41: POC Glucose 184 H 06/20/23 12:13: POC Glucose 165 H I & O for Last 24 hours: Intake & Output 06/17/23 06/18/23 06/19/23 06/20/23 23:59 23:59 23:59 23:59 Intake Total 1530 / 2085 2303 / 2918 935 / 1430 595 / 595 Output Total 1150 / 1150 700 / 700 450 / 450 Balance 380 / 935 1603 / 2218 485 / 980 595 / 595 Weight 195 lb 4.109 oz 195 lb 3.2 oz 197 lb 199 lb 4.8 oz Constitutional Constitutional: mild distress Comments: weight loss noted, sedate but cooperative *Routine HEENT Exam Head: Present normocephalic Eye: Present EOMI and PERRL ENT: Present mucous membranes moist *Routine Neck Exam Neck: Present supple; Absent lymphadenopathy *Routine Respiratory Exam Respiratory: Present CTA bilaterally *Routine Cardiovascular Exam Cardiovascular: Present RRR *Routine Abdominal Exam Abdominal: Present soft and normoactive bowel sounds; Absent tenderness *Routine Extremities Exam Extremities: Absent cyanosis, clubbing or edema *Routine Skin Exam Skin: Present warm; Absent rash *Routine Neurological Exam Neurological: Present motor deficit (generalized weakness, unable to stand) and tremors Results Data Completed and Pending Labs on day of discharge: Labs from last 24 hours 06/20/23 06/20/23 06/19/23 12:13 06:41 20:18 POC Glucose 165 H 184 H 160 H 06/19/23 15:28 POC Glucose 158 H DS: Diagnosis Discharge Diagnosis (1) Falls frequently: Status: Acute Code(s): R29.6 - Repeated falls (2) Generalized weakness: Status: Acute Code(s): R53.1 - Weakness (3) Lumbar radiculopathy: Status: Chronic Code(s): M54.16 - Radiculopathy, lumbar region (4) Spinal stenosis: Status: Chronic Code(s): M48.00 - Spinal stenosis, site unspecified (5) Neurogenic claudication: Status: Chronic Code(s): G95.19 - Other vascular myelopathies (6) Bilateral leg weakness: Status: Acute Code(s): R29.898 - Other symptoms and signs involving the musculoskeletal system (7) Ambulatory dysfunction: Status: Acute Code(s): R26.2 - Difficulty in walking, not elsewhere classified (8) Declining functional status: Status: Acute Code(s): R53.81 - Other malaise (9) Acute hyponatremia: Status: Acute Code(s): E87.1 - Hypo-osmolality and hyponatremia (10) Lung mass: Status: Acute Code(s): R91.8 - Other nonspecific abnormal finding of lung field (11) Anemia: Status: Acute Code(s): D64.9 - Anemia, unspecified (12) Thrombocytopenia: Status: Acute Code(s): D69.6 - Thrombocytopenia, unspecified (13) COPD (chronic obstructive pulmonary disease) with chronic bronchitis: Status: Acute Code(s): J44.9 - Chronic obstructive pulmonary disease, unspecified (14) Insulin dependent diabetes mellitus: Status: Acute (15) Type 2 diabetes mellitus: Status: Acute Code(s): E11.9 - Type 2 diabetes mellitus without complications (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 Code(s): M47.816 - Spondylosis without myelopathy or radiculopathy, lumbar region (17) Hyponatremia: Status: Acute Code(s): E87.1 - Hypo-osmolality and hyponatremia (18) Metastatic disease: Status: Acute Code(s): C79.9 - Secondary malignant neoplasm of unspecified site Meds Home Medications and Allergies Home Medications Medication Instructions Recorded Confirmed Type levothyroxine 25 mcg tablet 25 mcg PO DAILY thyroid 01/19/23 06/15/23 History fluticasone 500 mcg-salmeterol 50 1 inh inhalation DAILY Breathing 01/20/23 06/15/23 History mcg/dose blistr powdr for Problems inhalation (Advair Diskus) diclofenac sodium 1 % topical gel 1 ea topical DAILYP PRN Pain 02/10/23 06/15/23 History pravastatin 80 mg tablet 80 mg PO DAILY Cholesterol 02/10/23 06/15/23 History insulin glargine 100 unit/mL (3 40 unit SQ HS Diabetes 02/14/23 06/15/23 History mL) subcutaneous pen (Basaglar KwikPen U-100 Insulin) [id number] 2 cap PO AC fibrosing pancreatitis 02/28/23 06/15/23 Rx 36,000-114,000-180,000 unit #90 caps capsule,delay rel (Creon) pen needle, diabetic 32 gauge x #100 ea 03/14/23 06/15/23 Rx 5/32 (BD Ultra-Fine Cortney Pen Needle) albuterol sulfate 90 mcg/actuation 2 puff inhalation QID 06/15/23 06/15/23 History aerosol inhaler amlodipine 5 mg tablet 5 mg PO DAILY 06/15/23 06/15/23 History losartan 50 mg tablet 50 mg PO DAILY 06/15/23 06/15/23 History metformin 1,000 mg tablet 1,000 mg PO BID 06/15/23 06/15/23 History primidone 50 mg tablet 100 mg PO TID Tremor(S) 06/15/23 06/15/23 History propranolol 60 mg tablet See Rx Instructions .Route .COMPLEX 06/15/23 06/15/23 History spironolactone 25 mg tablet 25 mg PO DAILY 06/15/23 06/15/23 History diazepam 10 mg tablet 10 mg PO BIDP PRN Anxiety #60 tabs 06/20/23 Rx gabapentin 800 mg tablet 800 mg PO TID back pain #90 tabs 06/20/23 Rx oxycodone 5 mg tablet 5 mg PO QIDP PRN Severe pain #90 06/20/23 Rx tabs New Prescriptions to Start Prescriptions: diazepam [place] gabapentin [place] oxycodone [place] Allergies Allergy/AdvReac Type Severity Reaction Status Date / Time aspirin Allergy Severe S-SWELLS-OR Verified 02/14/23 15:40 AL/THROAT gentamicin [Gentamicin] Allergy Intermediate I-HIVES Verified 02/14/23 15:40 Discharge Plan Disposition Patient Disposition: [facility] Discharge Order Discharge Orders: Discharge Order (Routine); Ordered 06/20/23 Ordered By: Roland Muniz Follow up Plan Follow up with: Konstantin Walters MD [Primary Care Provider] - Enter time for follow up (At [place]) Prescriptions/Medication Reconciliation: Continued insulin glargine [Basaglar KwikPen U-100 Insulin] 100 unit/mL (3 mL) insulin pen 40 unit SQ HS Patient Comments: INJECT 40 UNITS SUBCUTANEOUSLY EVERY DAY AT BEDTIME Creon 36,000-114,000- 180,000 unit capsule,delayed release(DR/EC) 2 cap PO AC Qty: 90 0RF Rx Instructions: administer with meals and/or snacks (DME) pen needle, diabetic [BD Ultra-Fine Cortney Pen Needle] 32 gauge x 5/32 needle See Rx Instructions .ROUTE .COMPLEX Qty: 100 2RF Dose Instruction: USE DIRECTED Rx Instructions: USE DIRECTED pravastatin 80 mg tablet 80 mg PO DAILY Patient Comments: TAKE ONE TABLET BY MOUTH EVERY DAY diclofenac sodium 1 % gel 1 ea TOPICAL DAILYP PRN (Reason: Pain) Patient Comments: APPLY TOPICALLY TO THE AFFECTED AREA(S) ONCE DAILY propranolol 60 mg tablet See Rx Instructions .ROUTE .COMPLEX Rx Instructions: Take one tablet in the morning, one tablet at night and 1/2 tablet at noon. losartan 50 mg tablet 50 mg PO DAILY Patient Comments: TAKE ONE TABLET BY MOUTH EVERY DAY FOR BLOOD PRESSURE metformin 1,000 mg tablet 1,000 mg PO BID Patient Comments: TAKE ONE TABLET BY MOUTH TWICE DAILY FOR diabetes primidone 50 mg tablet 100 mg PO TID Patient Comments: TAKE TWO TABLETS BY MOUTH THREE TIMES DAILY FOR tremor amlodipine 5 mg tablet 5 mg PO DAILY Patient Comments: TAKE ONE TABLET BY MOUTH EVERY DAY FOR BLOOD PRESSURE albuterol sulfate 90 mcg/actuation HFA aerosol inhaler 2 puff INHALATION QID Patient Comments: INHALE TWO PUFFS BY MOUTH FOUR TIMES DAILY AND NEEDED Rx Instructions: and as needed spironolactone 25 mg tablet 25 mg PO DAILY Patient Comments: TAKE ONE TABLET BY MOUTH EVERY DAY FOR fluid gabapentin 800 mg tablet 800 mg PO TID Qty: 90 0RF diazepam 10 mg tablet 10 mg PO BIDP PRN (Reason: Anxiety) Qty: 60 0RF oxycodone 5 mg tablet 5 mg PO QIDP PRN (Reason: Severe pain) Qty: 90 0RF levothyroxine 25 mcg Tablet 25 mcg PO DAILY fluticasone propion-salmeterol [Advair Diskus] 500-50 mcg/dose blister with device 1 inh INHALATION DAILY Patient Comments: INHALE 1 PUFF BY MOUTH EVERY DAY FOR allergies Discontinued glimepiride 4 mg tablet 4 mg PO DAILY Patient Comments: TAKE ONE TABLET BY MOUTH TWICE DAILY FOR DIABETES Problem Reconciliation Problems Reviewed?: Yes Patient Discharge Instructions ACTIVITY: Continue current activity DIET: continue same diet Patient Instructions: DI for Hematoma (Bruise), DI for Hyponatremia, How to Prevent Falls Providers Primary Care Provider: Konstantin Walters Admit Provider: Eriberto Leonard Attending Provider: Roland Muniz
== END 2023-06-20 15:13 | disposition hospice, inpatient (51) | DRG 181 ==
LOC: ER 13:45 → 2ND 14:04
PROVIDERS: Admitting Provider Internal Medicine Adolescent Medicine; Emergency Provider Student in an Organized Health Care Education/Training Program; PCP Family Medicine; Visit Provider Family Medicine
DX: C34.02 Malignant neoplasm of left main bronchus (principal); C79.9 Secondary malignant neoplasm of unspecified site; E87.1 Hypo-osmolality and hyponatremia; S06.9XAA Unspecified intracranial injury with loss of consciousness status unknown, initial encounter; D69.6 Thrombocytopenia, unspecified; I10 Essential (primary) hypertension; J44.9 Chronic obstructive pulmonary disease, unspecified; E11.9 Type 2 diabetes mellitus without complications; E78.5 Hyperlipidemia, unspecified; Z87.891 Personal history of nicotine dependence; D64.9 Anemia, unspecified; Z79.4 Long term (current) use of insulin; M54.50 Low back pain, unspecified; M47.816 Spondylosis without myelopathy or radiculopathy, lumbar region; Z51.5 Encounter for palliative care; R29.6 Repeated falls; Z79.899 Other long term (current) drug therapy
CPT/HCPCS: 36415; 70450; 71045; 71275; 72125; 72131; 72170; 80048; 80053; 81001; 82550; 82962; 83735; 84100; 84484; 85025; 93005; 94640; 97110; 97163; 97167; 97530; 99291; Q9967